=== PATIENT | female | born 1965 | race Caucasian/White ===

== ENCOUNTER → 2018-07-04 02:17 | Outpatient (CLI) | payer BC, SELFPAY ==
--- NOTE | 2018-07-04 08:03 | DI.REPORT_ITS ---
SYMPTOM/DIAGNOSIS: RT KNEE PAIN,M25.561 RIGHT KNEE: Three views. No bone or joint abnormality is identified. The soft tissues are unremarkable. IMPRESSION: Negative examination.
== END ==
PROVIDERS: PCP Nurse Practitioner; Visit Provider Nurse Practitioner
DX: M25.561 Pain in right knee (principal)
CPT/HCPCS: 73562

== ENCOUNTER 2018-07-24 00:35 | Outpatient (CLI) | payer BC, SELFPAY ==
--- NOTE | 2018-07-24 13:30 | DI.US_ITS ---
SYMPTOMS/DIAGNOSIS: LOWER ABDOMINAL PAIN, R10.30, UTERINE FIBROIDS, D25.9 PELVIC ULTRASOUND: A transabdominal and transvaginal examination was carried out. The uterus measures 11.1 cm in length, 6.5 cm in height and 7.0 cm in width with an endometrial stripe thickness of 3.6 mm. An IUD is demonstrated in the endometrial cavity. There is a mid body anterior uterine fibroid measuring 1.6 x 1.3 x 1.6 cm and a posterior proximal uterine fibroid measuring 2.4 x 2.2 x 2.1 cm. The right ovary measures 1.8 x 1.5 x 2.1 cm, the left ovary 2.2 x 1.5 x 1.1 cm. There is no evidence of free pelvic fluid. There is no evidence of hydronephrosis. SUMMARY: An IUD is noted in good position. Two uterine fibroids are demonstrated. The examination is otherwise unremarkable.
== END 2018-07-24 00:55 ==
PROVIDERS: PCP Nurse Practitioner; Visit Provider Nurse Practitioner
DX: R10.31 Right lower quadrant pain (principal); D25.9 Leiomyoma of uterus, unspecified; Z97.5 Presence of (intrauterine) contraceptive device
CPT/HCPCS: 76830; 76856

== ENCOUNTER 2018-10-16 00:14 | Outpatient (CLI) | payer BC, SELFPAY ==
--- NOTE | 2018-10-16 07:50 | DI.MAMMO_ITS ---
SYMPTOMS/DIAGNOSIS: SCREENING, PREVENTATIVE HEALTH CARE MAMMOGRAMS: Mammograms were interpreted according to the usual protocol including computer analysis with CAD system, tomosynthesis and C view imaging. Comparison is with the prior examinations. No suspicious masses or microcalcifications are seen. The well-circumscribed 3-4 cm mass in the upper outer quadrant of the right breast appears stable. IMPRESSION: No definite evidence for malignancy. Yearly mammography is recommended. Category 2, breast density B. MQSA ASSESSMENT OF FINDINGS: Negative with benign findings. Category 2. Patient will receive a letter notifying them of these results. BI-RADS category B. There are scattered areas of fibroglandular density.
== END 2018-10-16 00:34 ==
PROVIDERS: PCP Nurse Practitioner; Visit Provider Nurse Practitioner
DX: Z00.00 Encounter for general adult medical examination without abnormal findings (principal); Z12.31 Encounter for screening mammogram for malignant neoplasm of breast
CPT/HCPCS: 77063; 77067

== ENCOUNTER 2019-07-20 14:15 | Outpatient (REF) | payer BC, SELFPAY ==
--- NOTE | 2019-07-20 13:30 | PAPFT_PTH ---
PATIENT: Zhane Palacio LOC: NCN #:[id number] AGE/SX: 53/F ROOM: RE07/20/[address]: Racquel Galvan : 1965 BED: DIS: 07/20/2019 SPEC #: [id number] RECD: 07/20/19 18:31 STATUS: YUKI BALLARD #: [id number] SATISH: 07/20/19 13:[address]: Racquel Galvan DEPT: [facility] Cytology RECD BY: Rasheeda Lopez Tissues: 1 - CX/ENDOCX FOR PAP SMEARS Procedures: PAP THIN PREP/UVM Screening HPV DNA PROBE Comments: [id number]
[2019-07-20 20:03] LABS: ALT 42 U/L (14-59); AST 32 U/L (15-37); Albumin 3.6 g/dL (3.4-5.0); Alkaline Phosphatase 130 U/L (46-116); Anion Gap 12.4 mmol/L (3-11); BUN 6 mg/dL (7-18); Bilirubin, Total 0.5 mg/dL (0.2-1.0); CO2 25.6 mmol/L (21.0-32.0); CREATININE 0.88 mg/dL (0.55-1.02); Calculated LDL 83 mg/dL; Chloride 99 mmol/L (98-107); Cholesterol 178 mg/dL (50-200); Glucose 110 mg/dL (70-100); HDL Cholesterol 83 mg/dL (40-60); Potassium 3.6 mmol/L (3.5-5.1); Sodium 137 mmol/L (136-145); TSH (W/Ref FT4) 2.87 uIU/mL (0.36-3.74); Total Protein 7.3 g/dL (6.4-8.2); Triglyceride 61 mg/dL (30-150)
== END 2019-07-20 14:35 ==
LOC: NCHCN 14:15
PROVIDERS: PCP Nurse Practitioner; Visit Provider Nurse Practitioner
DX: Z00.00 Encounter for general adult medical examination without abnormal findings (principal); R63.5 Abnormal weight gain; Z12.4 Encounter for screening for malignant neoplasm of cervix; Z11.51 Encounter for screening for human papillomavirus (HPV)
CPT/HCPCS: 80053; 80061; 88142; 84443; 87624

== ENCOUNTER 2019-11-23 00:46 | Outpatient (CLI) | payer BC, SELFPAY ==
--- NOTE | 2019-11-23 09:01 | DI.MAMMO_ITS ---
EXAM: MAMMO SCREENING CLINICAL HISTORY: SCREENING, Z12.39 TECHNIQUE: Mammograms were interpreted according to the usual protocol including computer analysis w [employer] CAD system, tomosynthesis and C-view imaging. FINDINGS: The breasts are of moderate density with fairly symmetrical distribution of fibroglandular tissue. 3 -4 cm in diameter right upper outer quadrant breast mass, predominantly well circumscribed, is stable from multiple prior examinations including January 2012. No new mass or clumped microcalcification id entified in either breast. IMPRESSION: No specific evidence of malignancy at this time. Routine screening examinations are suggested at year ly intervals to follow the stable right breast mass. Category 2. Breast density, category B. BI-RADS Cat 2 - Benign Findings. Breast Density - Category B - Scattered areas of fibroglandular density.
== END 2019-11-23 01:06 ==
PROVIDERS: PCP Nurse Practitioner; Visit Provider Nurse Practitioner
DX: Z12.31 Encounter for screening mammogram for malignant neoplasm of breast (principal); N63.11 Unspecified lump in the right breast, upper outer quadrant
CPT/HCPCS: 77063; 77067

== ENCOUNTER 2020-03-16 09:01 | Outpatient (CLI) | payer BC, SELFPAY ==
--- NOTE | 2020-03-16 13:00 | DI.US_ITS ---
EXAM: US PELVIS TRANSVAGINAL CLINICAL HISTORY: Postmenopausal bleeding,N95.0 TECHNIQUE: Ultrasound performed using standard protocol. COMPARISON: US US PELVIS TRANSVAGINAL from 07/24/2018 FINDINGS: Pelvic ultrasound was performed transabdominally and transvaginally. Please see the accompanying data sheet for measurements of pelvic structures. The examination is technically limited. Uterus appears to contain multiple fibroids, the largest 5-6 cm diameter. Endometrial stripe is 4-5 m illimeters in thickness and appears homogeneous. No free fluid identified in the cul-de-sac. Limited visualization of the ovaries, no specific ovarian abnormality seen. Limited scanning of the kidneys is unremarkable. IMPRESSION: Limited scan, apparent multiple uterine fibroids, unremarkable appearance of the endometrial stripe. DATA REPOSITORY:
== END 2020-03-16 09:21 ==
PROVIDERS: PCP Nurse Practitioner; Visit Provider Obstetrics & Gynecology
DX: N95.0 Postmenopausal bleeding (principal); D25.9 Leiomyoma of uterus, unspecified
CPT/HCPCS: 76830; 76856

== ENCOUNTER 2020-06-25 10:07 | Emergency (ER) | payer BC, SELFPAY ==
[2020-06-25 10:11] VITALS: BP 144/79; PULSE 88; RESP 18; TEMP 36.6; O2SAT 99
--- NOTE | 2020-06-25 10:29 | ED.GENADUL_ITS ---
Discharge Plan Disposition Patient Disposition: HOME Condition: Stable Discharge Details Chief Complaint: Cellulitis Clinical Impression: Puncture wound Primary Care Provider: Racquel Galvan ED Provider: Maya Greer Home Meds and New Rx's Prescriptions: New cephalexin [Keflex] 500 mg capsule 500 mg PO QID 7 Days Qty: 28 RF: 0 mupirocin 2 % ointment 1 applic TP BID Qty: 15 RF: 0 Continued alprazolam [Xanax] 0.5 MG tablet 0.5 mg PO DAILY RF: 0 albuterol sulfate [ProAir HFA] 8.5 GM HFA aerosol inhaler 2 puff Inhalation Q6H PRN RF: 0 Flovent HFA 12 GM HFA aerosol inhaler 220 mcg Inhalation BID RF: 0 Discharge Instructions Instructions: Puncture Wound (ED) Additional Instructions: Keep wound clean and dry. Cover wound with bandage if risk of contamination. Otherwise you can keep the wound open to air if resting at home to allow edges to dry and heal. Use the topical antibiotic ointment as directed. Take the oral antibiotics until finished. Follow-up with your primary care doctor in 1 week. Return to the emergency department with any worsening or new concerning symptoms as fever, increased pain, redness or swelling. Discharge Data Discharge Physician: Maya Greer Medical Decision Making 54-year-old female presents with right thumb pain, edema and erythema since awakening this morning status post puncture wound to her right thumb with a screw 1 week ago. She denies any known foreign body and is declining x-ray. Suspect secondary bacterial infection as she has kept the wound open to the air. Presentation consistent with a localized cellulitis. No evidence of abscess. No concern for tenosynovitis at this time. We will give a prescription for mupirocin and Keflex. She is advised on the importance of proper wound care and covering of risk of contamination. Advised to follow up with the primary care doctor for re-evaluation. Usual and customary return precautions given prior to discharge. Medical Records Medical records reviewed: Yes I reviewed the patient's medical records. HPI General Mode of arrival: ambulatory . Date/Time Provider Initiated Documentation: 06/25/20 10:10 . Limitations to Documentation: no limitations . Information obtained by: patient . HPI Narrative: Patient is a 54-year-old female who presents to the ED with a complaint of right thumb redness, pain and swelling since this morning. Patient states she punctured her right thumb with the sharp end of the nail 1 week ago when grabbing a piece of scrap wood. She states the area became painful and earlier this week was able to express some pus drainage but states it had been healing and doing well since then. She has been keeping the wound open to air and not covering it. She is left-handed. She states she awoke this morning and noticed that her right thumb is much more swollen, painful and red. She denies any new injury. She is unsure of her tetanus status. She denies any foreign body within the wound. She states she was not wearing any gloves and her thumb was better when she punctured it. Related Data Home Medications Medication Instructions Recorded Confirmed Flovent HFA 220 mcg INHALATION BID inhaler 08/13/17 06/25/20 albuterol sulfate [ProAir HFA] 2 puff INHALATION Q6H PRN inhaler 08/13/17 06/25/20 alprazolam [Xanax] 0.5 mg PO DAILY 08/13/17 06/25/20 cephalexin [Keflex] 500 mg PO QID 7 Days #28 cap 06/25/20 mupirocin 1 applic TP BID #15 gm 06/25/20 Previous Rx's Medication Instructions Recorded cephalexin [Keflex] 500 mg PO QID 7 Days #28 cap 06/25/20 mupirocin 1 applic TP BID #15 gm 06/25/20 Allergies Allergy/AdvReac Type Severity Reaction Status Date / Time trazodone Allergy Severe Unverified 06/25/20 10:19 erythromycin base AdvReac Severe stomache Unverified 06/25/20 10:19 [Erythromycin Base] pain/nausea diphenhydramine HCl AdvReac Intermediate Jittery Unverified 06/25/20 10:19 [From Tylenol PM] General Stated Complaint: Cellulitis KAMILA: 4 Review of Systems All systems reviewed & are unremarkable except as noted in HPI and below Constitutional Constitutional: Reports as per HPI, Denies chills and Denies fever(s) Eyes Eyes: Denies blurry vision ENT Ears, Nose, Mouth, and Throat: Denies dizziness, Denies sore throat and Denies throat swelling Cardiovascular Cardiovascular: Denies chest pain and Denies dyspnea Respiratory Respiratory: Denies cough and Denies dyspnea Gastrointestinal Gastrointestinal: Denies abdominal pain, Denies diarrhea and Denies vomiting Genitourinary Genitourinary: Denies hematuria and Denies dysuria Musculoskeletal Musculoskeletal: Denies back pain and Denies numbness Integumentary/Breasts Skin/Breast: Denies lesions and Denies rash Neurologic Neurologic: Denies dizziness, Denies localized weakness and Denies numbness Allergic/Immunologic Allergic/Immunologic: Denies throat swelling PFSH Medical History Anxiety (Chronic) Candidal intertrigo (Acute) Chronic rhinitis (Acute) Insomnia (Acute) Obesity (Chronic) Smoker (Acute) Surgical History (Updated 08/20/18 @ 14:34 by Bosideng MI) Biopsy of breast section X 2 Ligation of fallopian tube Social History Smoking/Tobacco Use Status: Current every day Tobacco Type: cigarettes Alcohol Intake: current Alcohol Intake frequency: 0-2 drinks per day Drug use: Never Do you feel safe at home: Yes Do you feel safe in your relationship?: Yes Exam Const General: cooperative, healthy appearing and no acute distress HENMT Head: normal to inspection Mouth: oral mucosae normal Eyes General: appearance normal, both eyes and all related structures Neck Neck: normal visual inspection Resp Effort & Inspection: normal respiratory effort and able to speak in complete sentences Cardio Rate: regular rate Skin General skin exam: no rashes or lesions noted Neuro General: patient alert, patient awake and patient oriented x3 Motor: muscle tone normal throughout Extrem General: capillary refill normal Hand/finger images: 1. 2 x 2 millimeter puncture wound noted on volar aspect of right thumb pad. There is moderate surrounding tenderness and edema of the right thumb extending to the proximal aspect with minimal erythema. There is limited range of motion due to the edema. There is no red streaking. Psych Appearance: grossly normal Affect: normal affect Course Vital Signs Vital signs: Vital Signs Temperature 97.9 F 06/25/20 10:11 Pulse 88 06/25/20 10:11 Respiratory Rate 18 06/25/20 10:11 Blood Pressure 144/79 H 06/25/20 10:11 Pulse Oximetry 99 06/25/20 10:11 Temperature 97.9 F 06/25/20 10:11 Temperature Source Temporal Artery Scan 06/25/20 10:11 Pulse 88 06/25/20 10:11 Respiratory Rate 18 06/25/20 10:11 Respiratory Effort Non-Labored 06/25/20 10:16 Blood Pressure 144/79 H 06/25/20 10:11 Blood Pressure Position Sitting 06/25/20 10:11 Pulse Oximetry 99 06/25/20 10:11 Oxygen Delivery Method Room Air 06/25/20 10:11 Oxygen Flow Rate 0 06/25/20 10:11 Pain Level 8 06/25/20 10:11
== END 2020-06-25 10:43 | disposition home or self-care (01) ==
PROVIDERS: Emergency Provider Physician Assistant; PCP Nurse Practitioner
DX: S61.031A Puncture wound without foreign body of right thumb without damage to nail, initial encounter (principal); L03.011 Cellulitis of right finger; W26.8XXA Contact with other sharp object(s), not elsewhere classified, initial encounter
CPT/HCPCS: 90471; 99284

== ENCOUNTER 2020-07-27 12:13 | Outpatient (REF) | payer BC, SELFPAY ==
[2020-07-27 20:07] LABS: ALT 63 U/L (14-59); AST 42 U/L (15-37); Albumin 3.7 g/dL (3.4-5.0); Alkaline Phosphatase 128 U/L (46-116); Anion Gap 12.8 mmol/L (3-11); BUN 9 mg/dL (7-18); Bilirubin, Total 0.6 mg/dL (0.2-1.0); CO2 24.2 mmol/L (21.0-32.0); CREATININE 0.76 mg/dL (0.55-1.02); Calcium 8.9 mg/dL (8.5-10.1); Calculated LDL 103 mg/dL (<100); Chloride 99 mmol/L (98-107); Cholesterol 239 mg/dL (<200); Glucose 83 mg/dL (74-106); HDL Cholesterol 121 mg/dL (40-60); Potassium 4.2 mmol/L (3.5-5.1); Sodium 136 mmol/L (136-145); Total Protein 7.4 g/dL (6.4-8.2); Triglyceride 77 mg/dL (<150)
== END 2020-07-27 12:33 ==
LOC: NCHCN 12:13
PROVIDERS: PCP Nurse Practitioner; Visit Provider Nurse Practitioner
DX: Z00.00 Encounter for general adult medical examination without abnormal findings (principal); Z13.220 Encounter for screening for lipoid disorders; Z13.228 Encounter for screening for other metabolic disorders
CPT/HCPCS: 80053; 80061

== ENCOUNTER 2020-08-03 14:43 | Outpatient (REF) | payer BC, SELFPAY ==
--- NOTE | 2020-08-03 14:30 | ENDOMET_PTH ---
PATIENT: Zhane Palacio LOC: N U#:[id number] AGE/SX: 55/F ROOM: RE08/03/[address]: Azael Shah MD : 1965 BED: DIS: 08/03/2020 SPEC #: [id number] RECD: 08/03/20 17:25 STATUS: YUKI REQ #: [id number] SATISH: 08/03/20 14:[address]: Azael Shah DEPT: Surgical Specimen RECD BY: Rasheeda Lopez ENTERED: 08/03/20 17:26 SP TYPE: Endomet OTHR DR: Racquel Galvan Tissues: 1 - ENDOMETRIUM BX/MITZYETTE Procedures: GROSS AND MICRO LEVEL 4 Comments: [id number]
== END 2020-08-03 15:03 ==
LOC: LBN 14:43
PROVIDERS: PCP Nurse Practitioner; Visit Provider Obstetrics & Gynecology
DX: N85.8 Other specified noninflammatory disorders of uterus (principal); D25.9 Leiomyoma of uterus, unspecified
CPT/HCPCS: 88305

== ENCOUNTER 2020-08-04 02:50 | Outpatient (CLI) | payer BC, SELFPAY ==
--- NOTE | 2020-08-04 | DI.CT_ITS ---
EXAM: CT SINUS WO CLINICAL HISTORY: CHRONIC RHINITIS,J31.0. Evaluate for sinusitis. TECHNIQUE: Imaging Protocol: Axial computed tomography images with coronal and sagittal reformatted images were created and reviewed. COMPARISON: No exams were available for comparison FINDINGS: AXIAL IMAGES: Frontal sinuses: Normally aerated. Ethmoid air cells: Normally aerated. Maxillary sinuses: Left minimal mucous retention at the floor. Right normally aerated. Sphenoid sinus: Normally aerated. Ostiomeatal complexes: Patent. Osseous nasal septum: Deviated toward the right.. Visualized regional soft tissues: No acute findings. Orbits: Unremarkable. Bones: Unremarkable. Mastoid Air Cells: Normally aerated. IMPRESSION: Minimal mucous retention at the floor of the right maxillary sinus.. RADIATION DOSE DELIVERED: 112.46mGy.cm Total DLP DATA REPOSITORY: All CT scans at this facility are submitted to the National Radiology Data Registry (NRDR) Dose Index Registry (DIR) with the [employer] ([employer]). RADIATION OPTIMIZATION: All CT scans at this facility use at least one of these dose optimization te chniques: automated exposure control; mA and/or kV adjustment per patient size (includes targeted exa ms where dose is matched to clinical indication); or iterative reconstruction.
== END 2020-08-04 03:10 ==
PROVIDERS: PCP Nurse Practitioner; Visit Provider Nurse Practitioner
DX: J31.0 Chronic rhinitis (principal); J34.1 Cyst and mucocele of nose and nasal sinus
CPT/HCPCS: 70486

== ENCOUNTER 2020-09-27 21:36 | Outpatient (REF) | payer BC, SELFPAY ==
[2020-10-01 07:12] LABS: Patient Race White; SARS-CoV-2 RNA Undetected (Undetected); SARS-CoV-2 Specimen Source Nasal
== END 2020-09-27 21:56 ==
LOC: NCHCN 21:36
PROVIDERS: PCP Nurse Practitioner; Visit Provider Nurse Practitioner Family
DX: Z20.828 Contact with and (suspected) exposure to other viral communicable diseases (principal)
CPT/HCPCS: U0003

== ENCOUNTER 2020-11-25 02:53 | Outpatient (CLI) | payer BC, SELFPAY ==
--- NOTE | 2020-11-25 11:15 | DI.MAMMO_ITS ---
EXAM: MG MAMMO SCREENING CLINICAL HISTORY: SCREENING, Z12.39 TECHNIQUE: Bilateral full field digital CC and MLO mammographic images were obtained with 3D tomosyn thesis and utilizing computer aided detection (CAD). COMPARISON: Available for comparison. FINDINGS: Masses/Architectural Distortion: There are several stable nodules in both breasts. The largest is in the upper outer quadrant of the right breast. No suspicious masses are seen. No areas of cloud infrastructure architect ural distortion are present Microcalcifications: No suspicious pleomorphic-type are seen. Skin Thickening/Nipple Retraction: None. IMPRESSION: 1. No significant interval change with no specific features of malignancy noted. 2. Unless there is more urgent need, screening mammography is recommended, as per [employer] guidelines. BI-RADS Category 2 - Benign Findings Breast Density - Category B - Scattered areas of fibroglandular density Breast density category C or D implies that the patient has dense breast tissue. Dense breast tissue is very common and is not abnormal but dense breast tissue can make it harder to find cancer on a ma mmogram. Also, dense breast tissue may increase their breast cancer risk. This information about the result of the mammogram report was provided to the patient to raise their awareness. Use this report when you speak with the patient about their risks for breast cancer, which includes their family hist ory. At that time, you may recommend for more screening tests (Ultrasound or MRI) as they might be us eful based on their risk. A negative radiographic report should not delay biopsy if a dominant or clinically suspicious mass is present. Up to ten percent of cancers are not identified on mammography. A negative report may reinforce clinical impression. Adenosis and dense breasts may obscure an underlying neoplasm. False positive reports average 6 to 10%. Patient will receive a letter notifying them of these results.
== END 2020-11-25 03:13 ==
PROVIDERS: PCP Nurse Practitioner; Visit Provider Nurse Practitioner
DX: Z12.31 Encounter for screening mammogram for malignant neoplasm of breast (principal); N63.11 Unspecified lump in the right breast, upper outer quadrant; R92.8 Other abnormal and inconclusive findings on diagnostic imaging of breast
CPT/HCPCS: 77063; 77067

== ENCOUNTER 2021-05-26 13:43 | Outpatient (REF) | payer MEDICAID, SELFPAY ==
[2021-05-27 14:16] LABS: COVID-19 RT-PCR UVMMC Result Negative (Negative)
== END 2021-05-26 13:44 | disposition home or self-care (01) ==
LOC: LBN 13:43
PROVIDERS: PCP Nurse Practitioner; Visit Provider Physician Assistant Medical
DX: Z20.822 Contact with and (suspected) exposure to COVID-19 (principal); J06.9 Acute upper respiratory infection, unspecified
CPT/HCPCS: U0003

== ENCOUNTER 2021-05-27 13:45 | Emergency (ER) | payer MEDICAID, SELFPAY ==
[2021-05-27 14:01] VITALS: BP 134/69; PULSE 91; RESP 20; TEMP 36.8; O2SAT 98
--- NOTE | 2021-05-27 14:15 | DI.RAD_ITS ---
Exam(s) XR PORTABLE CHEST AP EXAM: XR PORTABLE CHEST AP CLINICAL HISTORY: cough TECHNIQUE: 2D digital imaging was performed. COMPARISON: No exams were available for comparison FINDINGS: MEDIASTINUM: Normal. HEART: Normal. PULMONARY VASCULATURE: Normal. LUNGS: Clear. PLEURAL SPACE: No pleural effusion or pneumothorax. BONE:Within normal limits for the patient's age. OTHER FINDINGS:Normal. IMPRESSION: No acute pulmonary findings. DATA REPOSITORY: RADIATION DOSE DELIVERED:
--- NOTE | 2021-05-27 14:49 | DI.VRAD_ITS ---
PROCEDURE INFORMATION: Exam: XR Chest Exam date and time: 05/27/2021 2:17 PM Age: 55 years old Clinical indication: Shortness of breath TECHNIQUE: Imaging protocol: XR of the chest. Views: 1 view. Total images: 1 COMPARISON: No relevant prior studies available. FINDINGS: Lungs: There are patchy peripheral airspace opacities. Pleural spaces: Unremarkable. No pleural effusion. No pneumothorax. Heart/Mediastinum: Unremarkable. No cardiomegaly. Bones/joints: Unremarkable. IMPRESSION: Study is positive for airspace disease. Although nonspecific, findings may represent pneumonia including viral pneumonia. Dictated and Authenticated by: Donovan Harris MD. Ordering:GUNNAR Moody MD
--- NOTE | 2021-05-27 14:58 | W.ED.GENAD ---
Discharge Plan Disposition Patient Disposition: HOME Condition: Stable Discharge Details Clinical Impression: Bronchitis Primary Care Provider: Racquel Galvan ED Provider: Fransisco Rivera Home Meds and New Rx's Prescriptions: New prednisone 20 mg tablet 60 mg PO DAILY 4 Days Qty: 12 RF: 0 Continued cholecalciferol (vitamin D3) 50 mcg (2,000 unit) capsule 50 mcg PO DAILY RF: 0 Multiple Vitamin, Womens Tablet 1 tab PO DAILY RF: 0 alprazolam [Xanax] 0.5 MG tablet 0.5 mg PO DAILY RF: 0 albuterol sulfate [ProAir HFA] 8.5 GM HFA aerosol inhaler 2 puff Inhalation Q6H PRN RF: 0 Flovent HFA 12 GM HFA aerosol inhaler 220 mcg Inhalation BID RF: 0 hydrochlorothiazide 12.5 mg tablet 12.5 mg PO DAILY RF: 0 Discharge Instructions Instructions: Acute Bronchitis (ED) Additional Instructions: No clear indication for antibiotics today. Please quit smoking. Continue taking inhalers as directed and add on prednisone. Your symptoms very well could be consistent with Covid, I recommend continuing to quarantine until your test results have returned negative, hopefully you will get the results by Saturday. [id number] medications for symptomatic control. Please watch for new or worsening symptoms and return to the ER for any concerns. Lastly, I recommend reaching out your primary care provider on Saturday to discuss your ongoing symptoms to potential need for outpatient reevaluation Discharge Data Discharge Date/Time-TO BE ENTERED AT DEPARTURE: 05/27/21 15:32 Medical Decision Making 55-year-old female, presents complaining of a head cold that began on , now with chest congestion and cough. Seen at [facility] yesterday, Covid test pending. Clinically she appears well, nontoxic, afebrile, no evidence of tachycardia or hypoxia. She does have an occasional expiratory scattered wheeze. Given her recent Covid test, will not repeat test now as she will likely have the results by Saturday. Will obtain chest x-ray to rule out pneumonia although no suspicion given her presentation. Likely viral in nature. Will give a single DuoNeb now and initiate burst dose steroid therapy. Chest x-ray read by radiology as positive airspace disease, nonspecific, may represent pneumonia-viral. Clinically this very well could be consistent with Covid as well. DuoNeb given, patient reports moderate relief. Extremely rare expiratory wheeze, mostly clear. 60 mg p.o. prednisone given. Recommend treating her symptoms with vojv-hfk-pqpeddc medications, we discussed smoking cessation, and I will provide a prescription for prednisone. We discussed the importance of continuing to quarantine until her Covid test returns negative. Standard discharge and return precautions given. At this time no clear indication for antibiotics. This documentation was generated using [email or web address] dictation system, please disregard any oddities of phrase or misspellings. Medical Records Medical records reviewed: Yes I reviewed the patient's medical records. Imaging Data Radiologic Study: Attestation: I personally reviewed and interpreted this imaging study as follows: Imaging: X-Ray Radiologist's impression: Exam: XR Chest Exam date and time: 05/27/2021 2:17 PM Age: 55 years old Clinical indication: Shortness of breath TECHNIQUE: Imaging protocol: XR of the chest. Views: 1 view. Total images: 1 COMPARISON: No relevant prior studies available. FINDINGS: Lungs: There are patchy peripheral airspace opacities. Pleural spaces: Unremarkable. No pleural effusion. No pneumothorax. Heart/Mediastinum: Unremarkable. No cardiomegaly. Bones/joints: Unremarkable. IMPRESSION: Study is positive for airspace disease. Although nonspecific, findings may represent pneumonia including viral pneumonia. HPI General Mode of arrival: ambulatory. Date/Time Provider Initiated Documentation: 05/27/21 13:48. Limitations to Documentation: no limitations. Information obtained by: patient. HPI Narrative: This is a 55-year-old female, current pack-a-day smoker, past medical history of anxiety, obesity, denies lung disease diagnosis but does use inhalers daily, presenting for cough and congestion. Patient states initially her symptoms began on as what she describes as a head cold, ears feel congested, or popping, tickle in the back of her throat, sinus congestion but now over the past couple of days had developed wheezing, cough, mild clear phlegm. She has used her inhaler twice a day and 3 times yesterday. Patient has tried icxf-nvc-kkuahlr cough medication as well. Seen at [facility] yesterday, Covid test is pending, she is not vaccinated. She denies current headache, fever, neck pain, chest pain, abdominal pain, nausea, vomiting, pain or swelling in her legs. Related Data Home Medications Medication Instructions Recorded Confirmed Flovent HFA 220 mcg INHALATION BID inhaler 08/13/17 05/27/21 albuterol sulfate [ProAir HFA] 2 puff INHALATION Q6H PRN inhaler 08/13/17 05/27/21 alprazolam [Xanax] 0.5 mg PO DAILY 08/13/17 05/27/21 cholecalciferol (vitamin D3) 50 50 mcg PO DAILY 08/03/20 05/27/21 mcg (2,000 unit) capsule ekoshvlubqjs-Nv-ycot-minerals 1 tab PO DAILY 08/03/20 05/27/21 hydrochlorothiazide 12.5 mg PO DAILY 05/27/21 05/27/21 prednisone 60 mg PO DAILY 4 Days #12 tab 05/27/21 Previous Rx's Medication Instructions Recorded prednisone 60 mg PO DAILY 4 Days #12 tab 05/27/21 Allergies Allergy/AdvReac Type Severity Reaction Status Date / Time trazodone Allergy Severe Unverified 05/27/21 14:09 erythromycin base AdvReac Severe stomache Unverified 06/25/20 10:19 [Erythromycin Base] pain/nausea diphenhydramine HCl AdvReac Intermediate Jittery Unverified 06/25/20 10:19 [From Tylenol PM] General Stated Complaint: RespSymp KAMILA: 3 Review of Systems Constitutional Constitutional: Denies fever(s) and Denies headache(s) ENT Ears, Nose, Mouth, and Throat: Denies headache(s) and Denies neck pain Cardiovascular Cardiovascular: Denies chest pain and Denies dyspnea Respiratory Respiratory: Reports cough, Denies dyspnea and Reports wheezing Gastrointestinal Gastrointestinal: Denies abdominal pain, Denies nausea and Denies vomiting Musculoskeletal Musculoskeletal: Denies back pain and Denies neck pain Integumentary/Breasts Skin/Breast: Denies rash Neurologic Neurologic: Denies headache(s) Allergic/Immunologic Allergic/Immunologic: Reports wheezing PFSH Medical History Anxiety Candidal intertrigo Chronic rhinitis Insomnia Obesity Smoker Surgical History Biopsy of breast section X 2 Ligation of fallopian tube Social History Smoking/Tobacco Use Status: Current every day Tobacco Type: cigarettes Smoking risk assessment performed?: Yes Alcohol Intake: current Alcohol Intake frequency: 0-2 drinks per day Drug use: Never Do you feel safe at home: Yes Do you feel safe in your relationship?: Yes Exam Const General: cooperative, healthy appearing, comfortable and no acute distress Orientation: alert and awake [facility] Head: normal to inspection, normocephalic and atraumatic Ears: external ears normal, TM's normal bilaterally and EAC's normal General nose exam: nasal discharge clear Face and sinus: normal facial exam Mouth: moist mucous membranes Throat: posterior oropharynx normal Eyes General: appearance normal, both eyes and all related structures Conjunctivae: conjunctivae normal Neck Neck: normal visual inspection, full ROM, trachea midline and supple Resp Effort & Inspection: normal respiratory effort and able to speak in complete sentences Auscultation: wheezes (Scattered, rare, expiratory) Cardio Rate: regular rate Rhythm: regular rhythm Skin General skin exam: no rashes or lesions noted Neuro General: patient alert, patient awake, moves all extremities and no focal motor deficits Sensory Exam: no sensory deficits noted Psych Appearance: grossly normal Mental Status: mental status grossly normal Course Vital Signs Vital signs: Vital Signs Temperature 36.8 C 05/27/21 14:01 Pulse 91 H 05/27/21 14:01 Respiratory Rate 20 05/27/21 14:01 Blood Pressure 134/69 05/27/21 14:01 Pulse Oximetry 98 05/27/21 14:01 Temperature 36.8 C 05/27/21 14:01 Pulse 91 H 05/27/21 14:01 Respiratory Rate 20 05/27/21 14:01 Respiratory Effort 05/27/21 14:08 Blood Pressure 134/69 05/27/21 14:01 Blood Pressure Position Sitting 05/27/21 14:01 Pulse Oximetry 98 05/27/21 14:01 Oxygen Delivery Method Room Air 05/27/21 14:01 Oxygen Flow Rate 0 05/27/21 14:01 Pain Level 10 05/27/21 14:01
[2021-05-27] MEDS: Albuterol/Ipratropium 3 ML UPD VIAL UPD (15:13)
[2021-05-27] MEDS: predniSONE 20 MG TAB 60 MG PO (15:13)
[2021-05-27 15:35] VITALS: PULSE 90; O2SAT 100
== END 2021-05-27 15:32 | disposition home or self-care (01) ==
PROVIDERS: Emergency Provider Physician Assistant; PCP Nurse Practitioner
DX: J20.8 Acute bronchitis due to other specified organisms (principal); F17.210 Nicotine dependence, cigarettes, uncomplicated
CPT/HCPCS: 94640; 99283; 71045; J7512; J7620

== ENCOUNTER 2021-08-21 10:11 | Outpatient (REF) | payer MEDICAID, SELFPAY ==
[2021-08-21 14:41] LABS: HCT 47.1 % (36.0-46.0); HGB 16.2 g/dL (11.2-15.7); MCH 32.5 pg (27.0-33.0); MCHC 34.4 % (32.0-36.0); MCV 94.6 fL (80-95); MPV 11.1 fL (8.0-11.0); Platelet Count 201 10^3/uL (130-400); RBC 4.98 10^6/uL (3.93-5.22); RDW 13.4 % (11.7-14.6); RDW-SD 46.7 fL; WBC 10.79 10^3/uL (4.4-10.8)
[2021-08-21 14:52] LABS: ALT 140 U/L (14-59); AST 105 U/L (15-37); Albumin 3.5 g/dL (3.4-5.0); Alkaline Phosphatase 151 U/L (46-116); Anion Gap 13.1 mmol/L (3-11); BUN 6 mg/dL (7-18); Bilirubin, Total 0.3 mg/dL (0.2-1.0); CO2 25.9 mmol/L (21.0-32.0); CREATININE 0.8 mg/dL (0.55-1.02); Calcium 9.2 mg/dL (8.5-10.1); Calculated LDL 98 mg/dL (<100); Chloride 97 mmol/L (98-107); Cholesterol 229 mg/dL (<200); Glucose 110 mg/dL (74-106); HDL Cholesterol 120 mg/dL (40-60); Potassium 3.7 mmol/L (3.5-5.1); Sodium 136 mmol/L (136-145); TSH (W/Ref FT4) 1.44 uIU/mL (0.36-3.74); Total Protein 7.5 g/dL (6.4-8.2); Triglyceride 57 mg/dL (<150)
== END 2021-08-21 10:12 | disposition home or self-care (01) ==
LOC: NCHCN 10:11
PROVIDERS: PCP Nurse Practitioner; Visit Provider Nurse Practitioner
DX: I10 Essential (primary) hypertension (principal); E78.5 Hyperlipidemia, unspecified; R53.83 Other fatigue
CPT/HCPCS: 80053; 80061; 85027; 84443

== ENCOUNTER 2021-08-25 13:28 | Emergency (ER) | payer MEDICAID, SELFPAY ==
[2021-08-25 13:34] VITALS: BP 174/103; PULSE 86; RESP 22; TEMP 37; O2SAT 99
[2021-08-25 14:00] LABS: Bilirubin Negative (Negative); Blood Trace-lysed (Negative); Clarity Clear (Clear); Glucose Negative (Negative); Ketones 15 mg/dL (Negative); Leukocyte Esterase Negative (Negative); Nitrite Negative (Negative); Specific Gravity <= 1.005 (1.005-1.025); Urobilinogen 0.2 EU/dL (Up TO 0.2); pH 5.5 (5-8)
[2021-08-25] MEDS: Normal Saline 1,000 ML 1000 ML IV ×2 (14:00→17:30)
--- NOTE | 2021-08-25 14:15 | RT.EKG_ITS ---
APPROVED REPORT Exam: Resting ECG Reason for Exam: fatigue Patient Location: E HR:82 bpm ECG Measurements Heart Rate 82 AXIS [place] 147 P 69 QRSd 99 QRS 47 QT 414 T 47 QTc 483 Conclusion Sinus rhythm...normal P axis, V-rate 60- 99
[2021-08-25 14:24] LABS: C & S Indicated? No; Epithelial Cells Rare HPF (Negative); RBC 0-2 HPF (0-2)
--- NOTE | 2021-08-25 14:24 | ED.GENADUL_ITS ---
Discharge Plan Disposition Patient Disposition: HOME Condition: Stable Discharge Details Clinical Impression: Vomiting, Oral thrush, Alcohol intoxication Primary Care Provider: Racquel Galvan ED Provider: Fransisco Rivera Home Meds and New Rx's Prescriptions: New ondansetron HCl [Zofran] 4 mg tablet 4 mg PO Q8H PRNQty: 10 RF: 0 nystatin 100,000 unit/mL suspension 1 ml PO QID 10 Days Qty: 40 RF: 0 Continued alprazolam [Xanax] 0.5 MG tablet 0.5 mg PO DAILY RF: 0 albuterol sulfate [ProAir HFA] 8.5 GM HFA aerosol inhaler 2 puff Inhalation Q6H PRN RF: 0 Flovent HFA 12 GM HFA aerosol inhaler 220 mcg Inhalation BID RF: 0 hydrochlorothiazide 12.5 mg tablet 12.5 mg PO DAILY RF: 0 Discharge Instructions Instructions: Oral Candidiasis (ED), Alcohol Intoxication (ED), Acute Nausea and Vomiting (ED) Additional Instructions: Nystatin and Zofran as directed. As we discussed, please drink responsibly and in moderation. Also please quit smoking. Plenty of fluids to avoid dehydration, I do recommend Gatorade and/or Powerade for electrolyte supplementation. Please watch for new or worsening symptoms and return to the ER for any concerns. Otherwise I would like you to contact your primary care provider on Saturday to discuss your ongoing symptoms, ER visit, need for outpatient reevaluation. Discharge Data Discharge Date/Time-TO BE ENTERED AT DEPARTURE: 08/25/21 19:47 Medical Decision Making <MARIJA Hurtado - Last Filed: 08/26/21 11:04> Patient is a pleasant 56-year-old female, accompanied by family friend, with chief complaint of general malaise. Patient reports that since May she has been under immense amount of stress, has been drinking daily. States that she had 6 years prior to arrival. Reports that she smoked 1.5 packs/day. Described increased social stressors after taking over the care of her 2 grandchildren. States that she has had increase of her general malaise over the past 2 weeks. States that each morning she wakes up and has 1 episode of emesis. Also describes having loose bowel movements in the morning. Had one episode of vomiting and loose stools this AM. She denies any fevers or chills. Past surgical history is pertinent for section and tubal ligation. Past medical history is pertinent for anxiety, insomnia, obesity. On exam, patient appears anxious in. She does not actively suicidal or having thoughts of self-harm. Dry mucous membranes. Lungs are clear. Normal cardiac exam. Abdomen is benign with no tenderness elicited with palpation. No significant edema or fluid wave. No lower extremity edema. 2+ distal pulses. No scleral icterus or jaundice noted. We will proceed to ultrasound of right upper quadrant. This had already been ordered by primary care and is scheduled for September. Plan to repeat lab. Concerned that the patient's transaminitis recently is from for a large amount of alcohol intake. Patient reports that she had 6 beers prior to arrival, she does not appear clinically intoxicated. She is open to alcohol cessation, I will have Preparation H come to evaluate the patient. Concerned that patient may be dehydrated and will begin IV fluids. He Labs reviewed. No leukocytosis.Hemoglobin and hematocrit are elevated, coags are normal. Sodium is fairly low at 130. Potassium slightly low at 3.3. Elevated gap 18. GFR is normal. Patient does have notable transaminitis, AST of 315, ALT of 269, alk phos of 141. T bili is within normal limits. Ammonia is just under normal limits. Troponin within normal limits. Thyroid within normal limits. Patient does have some ketones noted on urinalysis. Patient was evaluated by instructional technology coach. Information for local rehabs were given to the patient on she is discussing the possibility her family friend at bedside. We discussed contacted by radiologist. He advised ultrasound is significant for fatty liver. I did advise that it was limited and were unable to see any midline structures including the pancreas. Have added on a lipase for further evaluation. At the end of my shift, care transition to CARLOS MANUEL Rivera with lipase pending. Hepatitis panel is pending as is COVID-19. Hepatitis panel will not come back today. If lipase is elevated or patient begins having increased pain, would consider CT. <MARIJA Preciado - Last Filed: 08/25/21 19:38> I assumed care of this 56-year-old female from my colleague MARIJA Elizalde, please see her HPI and examination. At time of signout awaiting Covid and lipase, IV hydration. Repeat blood pressure 156/82, trending down nicely. Plan is to provide additional liter of IV fluid and check her BNP as she had an elevated anion gap. Given her initial laboratory values, will give p.o. potassium. Repeat laboratory values reveal a sodium of 136 potassium 3.7 chloride 99, carbon dioxide 26, anion gap now at 11, creatinine 0.8 with a GFR greater than 60. Glucose 105, calcium 9.6, will provide oral calcium supplementation. Patient tolerates p.o. intake without any difficulty. Her lipase is 317. Covid negative. Hepatitis pending Upon reevaluation she is resting comfortably. Denies any additional abdominal discomfort. No vomiting while under my care. Given her normal lipase and her clinical presentation, will not pursue CT imaging of the abdomen and pelvis in an emergent capacity. Patient does report that her tongue is painful and has white spots. Upon clinical examination her exam tongue is consistent with thrush, will treat with nystatin. Patient otherwise feels improvement, has no additional questions or concerns and is comfortable discharge. We discussed smoking cessation, decreasing her alcohol intake, adequate hydration, especially with Gatorade and/or Powerade for electrolytes. She was encouraged to watch for new or worsening symptoms and return immediately to the ER. Standard discharge and return precautions provided. She plans to contact her primary care provider on Saturday to discuss her ER visit and ongoing symptoms. This documentation was generated using [email or web address] system, please disregard any oddities of phrase or misspellings. Medical Records Medical records reviewed: Yes I reviewed the patient's medical records. HPI <MARIJA Hurtado - Last Filed: 08/26/21 11:04> General Mode of arrival: ambulatory . Date/Time Provider Initiated Documentation: 08/25/21 13:37 . Limitations to Documentation: no limitations . Information obtained by: patient, family (friend) and RN notes reviewed . History of Present Illness 56 year old F presents to the emergency department with the chief complaint of general malaise, fatigue, AM vomiting, described as moderate, with intensity rated at 1 (patietn denies any pain). Patient st arted experiencing this week(s) (2) and it has been constant. No relieving factors improve symptom(s), No exacerbating factors reported . Patient notes loss of appetite and nausea/vomiting; denies chest pain, cough, diaphoresis, fever/chills, headaches, rash, shortness of breath and syncope. Patient did receive the following treatments prior to arrival, none Related Data Home Medications Medication Instructions Recorded Confirmed Flovent HFA 220 mcg INHALATION BID inhaler 08/13/17 08/25/21 albuterol sulfate [ProAir HFA] 2 puff INHALATION Q6H PRN inhaler 08/13/17 08/25/21 alprazolam [Xanax] 0.5 mg PO DAILY 08/13/17 08/25/21 hydrochlorothiazide 12.5 mg PO DAILY 05/27/21 08/25/21 nystatin 1 ml PO QID 10 Days #40 ml 08/25/21 ondansetron HCl [Zofran] 4 mg PO Q8H PRN #10 tab 08/25/21 Previous Rx's Medication Instructions Recorded nystatin 1 ml PO QID 10 Days #40 ml 08/25/21 ondansetron HCl [Zofran] 4 mg PO Q8H PRN #10 tab 08/25/21 Allergies Allergy/AdvReac Type Severity Reaction Status Date / Time trazodone Allergy Severe Unverified 05/27/21 14:09 erythromycin base AdvReac Severe stomache Unverified 06/25/20 10:19 [Erythromycin Base] pain/nausea diphenhydramine HCl AdvReac Intermediate Jittery Unverified 06/25/20 10:19 [From Tylenol PM] General Stated Complaint: Nausea/Vomit/Diar KAMILA: 2 Review of Systems <MARIJA Hurtado - Last Filed: 08/26/21 11:04> Constitutional Constitutional: Reports as per HPI, Denies chills, Reports fatigue, Denies fever(s), Denies headache(s), Reports lethargy, Reports malaise, Reports poor appetite and Denies weight loss ENT Ears, Nose, Mouth, and Throat: Denies headache(s) Cardiovascular Cardiovascular: Reports as per HPI, Denies chest pain and Denies dyspnea Respiratory Respiratory: Reports as per HPI, Denies cough and Denies dyspnea Gastrointestinal Gastrointestinal: Reports as per HPI Musculoskeletal Musculoskeletal: Reports as per HPI and Denies back pain Integumentary/Breasts Skin/Breast: Reports as per HPI and Denies rash Neurologic Neurologic: Reports as per HPI and Denies headache(s) Endocrine Endocrine: Reports fatigue PFSH <MARIJA Hurtado - Last Filed: 08/26/21 11:04> Medical History Anxiety Candidal intertrigo Chronic rhinitis Insomnia Obesity Smoker Surgical History Biopsy of breast section X 2 Ligation of fallopian tube Social History Smoking/Tobacco Use Status: Current every day Tobacco Type: cigarettes Years smoked: 34 Smoking risk assessment performed?: Yes Alcohol Intake: current Alcohol Intake frequency: 3 or more drinks per day Drug use: Never Substance use type: does not use Do you feel safe at home: Yes Do you feel safe in your relationship?: Yes Exam <MARIJA Hurtado Last Filed: 08/26/21 11:04> Const General: cooperative, comfortable, no acute distress, well developed, anxious and ill appearing acutely Nutritional Appearance: well nourished and overweight Orientation: alert and awake HENMT Head: normal to inspection Mouth: abnormal tongue (dry and cracked) and mucous membranes dry (dry) Throat: posterior oropharynx normal Eyes General: appearance normal, both eyes and all related structures Resp Effort & Inspection: normal respiratory effort, able to speak in complete sentences and no respiratory distress Auscultation: no rales, no rhonchi and wheezes (scattered wheezing) Cardio Rate: regular rate Rhythm: regular rhythm Heart Sounds: S1 normal and S2 normal GI Inspection: normal to inspection and obesity Palpation: soft, no hepatosplenomegaly, not firm, no guarding, no masses, not rigid and nontender Percussion: normal to percussion Auscultation: normal bowel sounds Back/Spine/Pelvis Back: no CVA tenderness Skin General skin exam: no rashes or lesions noted Trauma: no lacerations or abrasions Neuro General: patient alert and patient awake Cognition: normal cognition Speech: speech normal Gait: normal gait Extrem General: no pedal edema, no calf tenderness and normal gait Psych Appearance: grossly normal and well kempt Mental Status: mental status grossly normal Speech and Movement: speech and movement normal Course <MARIJA Hurtado - Last Filed: 08/26/21 11:04> Vital Signs Vital signs: Vital Signs Temperature 37.0 C 08/25/21 13:34 Pulse 86 08/25/21 13:34 Respiratory Rate 22 08/25/21 13:34 Blood Pressure 174/103 H 08/25/21 13:34 Pulse Oximetry 99 08/25/21 13:34 Temperature 37.0 C 08/25/21 13:34 Temperature Source Temporal Artery Scan 08/25/21 13:34 Pulse 86 08/25/21 13:34 Respiratory Rate 22 08/25/21 13:34 Respiratory Effort Non-Labored 08/25/21 13:37 Blood Pressure 174/103 H 08/25/21 13:34 Blood Pressure Position Sitting 08/25/21 13:34 Pulse Oximetry 99 08/25/21 13:34 Oxygen Delivery Method Room Air 08/25/21 13:34 Oxygen Flow Rate 0 08/25/21 13:34 Pain Level 0 08/25/21 13:34 Lab/Test Results Lab/Test Results: Laboratory Tests Range/Units 08/25/21 13:50 Urine Color (Yellow) Yellow Urine Clarity (Clear) Clear Urine pH (5-8) 5.5 Ur Specific [place] (1.005-1.025) <= 1.005 Urine Protein (Negative) mg/dL Negative Urine Ketones (Negative) mg/dL 15 H Urine Blood (Negative) Trace-lysed H Urine Nitrite (Negative) Negative Urine Bilirubin (Negative) Negative Urine Urobilinogen (Up TO 0.2) EU/dL 0.2 Ur Leukocyte Esterase (Negative) Negative Urine Glucose (Negative) mg/dL Negative Sign Out <MARIJA Hurtado - Last Filed: 08/26/21 11:04> Sign Out Data: Sign Out Comment: Care transition to Fahad Rivera PA-C. Patient here with general malaise. Morning vomiting and diarrhea. Only had one episode of each today. Hemodynamically stable. Large amount of alcohol daily. Alcohol currently 360. Notable transaminitis which is significantly increased recently. Lipase is pending. Ultrasound was obtained, the view of the pancreas and midline structures are very limited. May need CT based on my result. Hepatitis panel pending. Covid negative. Disposition pending. Last updated by Amanda Dietrich PA at 08/25/21 16:13 PAWSS <MARIJA Hurtado - Last Filed: 08/26/21 11:04> Have you Been Recently Intoxicated or Drunk Within the Last 30 days?: Yes Have you Ever Experienced Previous Episodes of Alcohol Withdrawal?: No Have you ever Experienced Withdrawal Seizures?: No Have you ever Experienced Delirium Tremens(DT)s?: No Have you ever undergone Alcohol Rehabilitation Treatment (i.e, inpt ot outpatient treatment programs)?: No Have you ever Experienced Blackouts?: No Have you ever Combined Alcohol with other Downers within the last 90 days?: No Have you ever Combined Alcohol with any other Substance of Abuse during the last 90 days?: No Positive Blood Alcohol level on Presentation? [PCS.BAL]: Yes Evidence of Increased Autonomic Activity (i.e. HR>120, tremor, sweating, agitation, nausea)?: Yes Result: 3
[2021-08-25 14:40] LABS: Abs Immature Grans 0.03 10^3/uL (0.0-0.06); Absolute Basophil Count 0.09 10^3/uL (0.0-0.2); Absolute Eosinophil Count 0.12 10^3/uL (0.0-0.7); Absolute Lymphocyte Count 1.36 10^3/uL (1.2-3.4); Absolute Monocyte Count 0.64 10^3/uL (0.1-0.8); Absolute Neutrophil Count 6.37 10^3/uL (1.2-6.7); Eosinophils % 1.4; HCT 49.1 % (36.0-46.0); HGB 17.2 g/dL (11.2-15.7); Immature Grans % 0.3; Lymphocytes % 15.8; MCH 33.1 pg (27.0-33.0); MCV 94.6 fL (80-95); MPV 10.4 fL (8.0-11.0); Monocytes % 7.4; Neutrophils % 74.1; Nucleated RBC 0 %; Platelet Count 200 10^3/uL (130-400); RBC 5.19 10^6/uL (3.93-5.22); RDW 12.9 % (11.7-14.6); WBC 8.61 10^3/uL (4.4-10.8)
[2021-08-25 14:47] LABS: Ammonia 10 umol/L (11-32)
[2021-08-25 14:56] LABS: PTT Activated 23.4 sec (21.0-27.5); Prothrombin Time 10.2 sec (9.3-11.0)
[2021-08-25 15:03] LABS: Source Nasal/Nares
[2021-08-25 15:04] LABS: ALT 269 U/L (14-59); AST 315 U/L (15-37); Albumin 4.3 g/dL (3.4-5.0); Alkaline Phosphatase 171 U/L (46-116); Anion Gap 16.9 mmol/L (3-11); BUN 7 mg/dL (7-18); Bilirubin, Total 0.4 mg/dL (0.2-1.0); CO2 27.1 mmol/L (21.0-32.0); CREATININE 0.9 mg/dL (0.55-1.02); Calcium 8.8 mg/dL (8.5-10.1); Chloride 86 mmol/L (98-107); Glucose 96 mg/dL (74-106); Magnesium 2.4 mg/dL (1.8-2.4); Potassium 3.3 mmol/L (3.5-5.1); Sodium 130 mmol/L (136-145); TSH (W/Ref FT4) 2.74 uIU/mL (0.36-3.74); Total Protein 9.3 g/dL (6.4-8.2); Troponin I < 0.05 ng/mL (<0.06)
--- NOTE | 2021-08-25 15:23 | DI.US_ITS ---
Exam(s) US ABDOMEN LIMITED EXAM: US ABDOMEN LIMITED CLINICAL HISTORY: transaminitis TECHNIQUE: Ultrasound abdomen performed using standard protocol. COMPARISON: No exams were available for comparison FINDINGS: LIVER: There is diffuse increased echogenicity of the liver consistent with fatty infiltration. Hepa topedal flow in the Portal Vein. GALLBLADDER: No evidence of cholelithiasis. No evidence of wall thickening. No pericholecystic fluid identified. BILIARY SYSTEM: Common bile duct measures < 7 mm. No intrahepatic biliary ductal dilation. REYES'S SIGN: Negative. Right kidney: The right kidney is unremarkable. No evidence of renal calculi. No evidence of hydrone phrosis. No renal mass or cyst identified. IMPRESSION: 1. Hepatic steatosis. 2. Results of this exam have been verbally communicated with provider. DATA REPOSITORY:
[2021-08-25 15:56] LABS: COVID-19 PCR Negative (Negative)
[2021-08-25 16:24] LABS: Bacteria Negative HPF (Negative); Crystals Negative HPF (Negative); Mucus Negative (Negative); WBC Negative HPF (0-5)
[2021-08-25] MEDS: Potassium Chloride 20 MEQ TABCR 40 MEQ PO (16:45)
[2021-08-25 16:56] LABS: Lipase 317 U/L (73-393)
[2021-08-25 17:04] VITALS: BP 156/82; PULSE 90; RESP 16; TEMP 36.3; O2SAT 97
[2021-08-25 18:39] LABS: BUN 5 mg/dL (7-18); CREATININE 0.8 mg/dL (0.55-1.02); Calcium 7.6 mg/dL (8.5-10.1); Chloride 99 mmol/L (98-107); Glucose 105 mg/dL (74-106); Potassium 3.7 mmol/L (3.5-5.1); Sodium 136 mmol/L (136-145)
[2021-08-25] MEDS: Calcium Citrate 950 MG TAB PO (19:08)
[2021-08-25 19:35] VITALS: BP 118/62; PULSE 98; TEMP 36.3; O2SAT 92
[2021-08-28 12:42] LABS: Hepatitis A Antibody IgM Negative (Negative); Hepatitis B Core Antibody Negative (Negative); Hepatitis B surface Ag Negative (Negative); Hepatitis C Ab w Rflx HCV PCR Negative (Negative)
== END 2021-08-25 19:47 | disposition home or self-care (01) ==
PROVIDERS: Physician Assistant; Emergency Provider Physician Assistant; PCP Nurse Practitioner
DX: R11.10 Vomiting, unspecified (principal); B37.0 Candidal stomatitis; F10.129 Alcohol abuse with intoxication, unspecified; R74.01 Elevation of levels of liver transaminase levels; R53.81 Other malaise; Y90.8 Blood alcohol level of 240 mg/100 ml or more
CPT/HCPCS: 36415; 80048; 80053; 83690; 86704; 86709; 86803; 87340; 87635; 93005; 96360; 96361; 99284; 76705; 80320; 81003; 81015; 82140; 83735; 84443; 84484; 85025; 85610; 85730; 93010

== ENCOUNTER 2021-11-22 01:17 | Outpatient (CLI) | payer MEDICAID, SELFPAY ==
--- NOTE | 2021-11-22 07:15 | DI.US_ITS ---
Exam(s) US PELVIS EXAM: US PELVIS CLINICAL HISTORY: post-menopausal bleeding,n95.0 TECHNIQUE: Ultrasound performed using standard protocol. COMPARISON: US US ABDOMEN LIMITED from 08/25/2021 FINDINGS: This examination was performed transabdominally only at the patient's request. Uterus measures 11.8 x 5 x 6.3 cm. Myometrium is predominantly homogeneous. There is a 3 cm in diameter posterior fundal presumed uterine fibroid, grossly unchanged from prior examination. Left ovary nonvisualized. Right ovary nonvisualized. Limited scanning of the kidneys is unremarkable. No free fluid in the cul-de-sac. IMPRESSION: Uterine fibroid noted. Limited examination due to transabdominal scanning only, ovaries nonvisualize d. DATA REPOSITORY:
== END 2021-11-22 01:37 ==
PROVIDERS: PCP Nurse Practitioner; Visit Provider Obstetrics & Gynecology
DX: N95.0 Postmenopausal bleeding (principal); D25.9 Leiomyoma of uterus, unspecified
CPT/HCPCS: 76856

== ENCOUNTER 2022-05-11 09:26 | Outpatient (REF) | payer MEDICAID, SELFPAY | END 2022-05-11 09:27 | disposition home or self-care (01) | LOC: LBN 09:26 | PROVIDERS: PCP Nurse Practitioner; Visit Provider Physician Assistant ==

== ENCOUNTER 2022-05-11 11:48 | Outpatient (REF) | payer MEDICAID, SELFPAY ==
--- NOTE | 2022-05-11 09:00 | SKI_PTH ---
PATIENT: Zhane Palacio LOC: [facility]#:[id number] AGE/SX: 56/F ROOM: RE05/11/[address]: Femi Cruz : 1965 BED: DIS: 05/11/2022 SPEC #: [id number] RECD: 05/11/22 17:06 STATUS: YUKI BALLARD #: [id number] SATISH: 05/11/22 09:[address]: Femi Cruz DEPT: Surgical Specimen RECD BY: Vale Antonio ENTERED: 05/11/22 17:08 SP TYPE: KATE THOMAS DR: Racquel Galvan Tissues: 1 - SKIN BIOPSY(SHAVE/PUNCH) Procedures: GROSS AND MICRO LEVEL 3 Comments: [id number]
[2022-05-11 15:41] LABS: ALT 113 U/L (14-59); AST 77 U/L (15-37); Albumin 3.6 g/dL (3.4-5.0); Alkaline Phosphatase 125 U/L (46-116); Bilirubin, Total 0.5 mg/dL (0.2-1.0); Total Protein 7.4 g/dL (6.4-8.2)
[2022-05-11 16:18] LABS: Bilirubin, Direct 0.2 mg/dL (0.0-0.2)
== END 2022-05-11 11:49 | disposition home or self-care (01) ==
LOC: NCHCN 11:48
PROVIDERS: PCP Nurse Practitioner; Visit Provider Physician Assistant
DX: R74.8 Abnormal levels of other serum enzymes (principal); L98.8 Other specified disorders of the skin and subcutaneous tissue
CPT/HCPCS: 80076; 88304; 88305

== ENCOUNTER 2023-03-04 15:25 | Outpatient (REF) | payer MEDICAID, SELFPAY ==
[2023-03-04 14:59] LABS: HCT 44.9 % (36.0-46.0); HGB 15.9 g/dL (11.2-15.7); MCH 34.3 pg (27.0-33.0); MCHC 35.4 % (32.0-36.0); MCV 97 fL (80-95); MPV 10.9 fL (8.0-11.0); Platelet Count 164 10^3/uL (130-400); RBC 4.63 10^6/uL (3.93-5.22); RDW 11.9 % (11.7-14.6); RDW-SD 42.6 fL; WBC 10.08 10^3/uL (4.4-10.8)
[2023-03-04 16:10] LABS: ALT 116 U/L (14-59); AST 108 U/L (15-37); Albumin 3.4 g/dL (3.4-5.0); Alkaline Phosphatase 134 U/L (46-116); BUN 6 mg/dL (7-18); Bilirubin, Total 0.5 mg/dL (0.2-1.0); CREATININE 0.9 mg/dL (0.55-1.02); Calcium 9.2 mg/dL (8.5-10.1); Calculated LDL 140 mg/dL (<100); Chloride 94 mmol/L (98-107); Cholesterol 259 mg/dL (<200); Glucose 112 mg/dL (74-106); HDL Cholesterol 106 mg/dL (40-60); Potassium 3.7 mmol/L (3.5-5.1); Sodium 136 mmol/L (136-145); Total Protein 7.3 g/dL (6.4-8.2); Triglyceride 66 mg/dL (<150)
== END 2023-03-04 15:26 | disposition home or self-care (01) ==
LOC: NCHCN 15:25
PROVIDERS: PCP Physician Assistant; Visit Provider Physician Assistant
DX: I10 Essential (primary) hypertension (principal)
CPT/HCPCS: 80053; 80061; 85027

== ENCOUNTER 2023-03-05 12:06 | Outpatient (CLI) | payer MEDICAID, SELFPAY ==
--- NOTE | 2023-03-05 | DI.RAD_ITS ---
Exam(s) XR CHEST 2V PA LATERAL EXAM: XR CHEST 2V PA LATERAL CLINICAL HISTORY: COUGH,R05.8. TECHNIQUE: 2D digital imaging was performed. COMPARISON: CR,XR XR PORTABLE CHEST AP from 05/27/2021 FINDINGS: 2 views: Heart size is normal. The mediastinum is not widened. Lungs are clear. No infiltrates nor pleural effusions. IMPRESSION: No acute pulmonary findings. DATA REPOSITORY: RADIATION DOSE DELIVERED:
== END 2023-03-05 12:26 ==
PROVIDERS: PCP Physician Assistant; Visit Provider Physician Assistant
DX: R05.8 Other specified cough (principal)
CPT/HCPCS: 71046

== ENCOUNTER 2023-03-26 01:08 | Outpatient (CLI) | payer MEDICAID, SELFPAY ==
--- NOTE | 2023-03-26 10:30 | DI.CT_ITS ---
Exam(s) CT ABDOMEN PELVIS W EXAM: CT ABDOMEN PELVIS W CLINICAL HISTORY: ABD PAIN, R10.9, ? VENTRAL HERNIA TECHNIQUE: Imaging Protocol: Axial computed tomography images with coronal and sagittal reformatted images were created and reviewed CONTRAST MATERIAL: Intravenous: Omnipaque 350 Contrast volume:100 mL Oral: Yes COMPARISON: No exams were available for comparison FINDINGS: ABDOMEN: Lung Bases: There is mild atelectasis in the lung bases. Liver: There is diffuse decreased attenuation of the liver suggesting fatty infiltration. The liver measures 17.5 cm long. No measurable mass. Portal, Superior Mesenteric, and Splenic Veins: Unremarkable. Gallbladder and Biliary Tract: No radiodense calculus or dilation. Pancreas: Normal density, no abnormal calcifications or inflammatory process. Spleen: Normal. Adrenals: No masses seen. Kidneys: Normal size, contour and axis. No radiodense stones or obstructive uropathy. There is a 0.8 cm simple cyst in the left kidney. No follow-up is recommended. No suspicious masses in the kidneys . Abdominal Aorta: Abdominal portion non-dilated. Atherosclerosis is present. Bowel: There is diverticulosis of the colon, but no evidence of acute diverticulitis. Appendix is un remarkable. There is no evidence of bowel wall thickening or obstruction. Peritoneal Cavity: No ascites, collection or mesenteric inflammatory response. No free air. Lymph Nodes: Within normal limits. Bones: Within normal limits for the patient's age. Soft Tissues: There is no evidence of an anterior abdominal wall hernia. PELVIS: Bladder: Symmetric distention, no gross wall thickening. Reproductive Organs: The uterus has a lobulated appearance and uterine fibroids are present. Lymph Nodes: Within normal limits. Bones: Within normal limits for the patient's age. IMPRESSION: 1. No evidence of an anterior abdominal wall hernia. 2. Mild hepatomegaly and fatty infiltration of the liver. RADIATION DOSE DELIVERED: 673.07mGy.cm Total DLP DATA REPOSITORY: All CT scans at this facility are submitted to the National Radiology Data Registry (NRDR) Dose Index Registry (DIR) with the [employer] (ACR). RADIATION OPTIMIZATION: All CT scans at this facility use at least one of these dose optimization te chniques: automated exposure control; mA and/or kV adjustment per patient size (includes targeted exa ms where dose is matched to clinical indication); or iterative reconstruction.
[2023-03-26] MEDS: Barium Sulfate 2% W/V-Berry Smoothie 450 ML BTL PO (10:33)
[2023-03-26] MEDS: Omnipaque 350 MG/ML 100 ML BTL IJ (10:33)
[2023-03-26] MEDS: Normal Saline - Diluent 50 ML VIAL IJ (10:34)
--- NOTE | 2023-03-26 11:42 | DI.MAMMO_ITS ---
Exam(s) MAMMO SCREENING EXAM: MAMMO SCREENING CLINICAL HISTORY: SCREENING, Z12.39 TECHNIQUE: Bilateral full field digital CC and MLO mammographic images were obtained with 3D tomosyn thesis and utilizing computer aided detection (CAD). COMPARISON: Available for comparison. FINDINGS: Masses/Architectural Distortion: There are bilateral breast nodules present. The largest is seen in the upper outer quadrant of the right breast. No areas of architectural distortion are seen. There is an area of breast asymmetry in the posterior upper left breast on the MLO view. This may represent overlying fibroglandular tissue but it appears more prominent compared to the prior examination. Microcalcifications: No suspicious pleomorphic-type are seen. Skin Thickening/Nipple Retraction: None. IMPRESSION: 1. Area of breast asymmetry in the posterior upper left breast on the MLO view. 2. This area should be further evaluated with a spot compression view. Ultrasound may be indicated at that time. BI-RADS Category 0 - Assessment Incomplete: Need additional imaging evaluation Breast Density - Category C - Heterogeneously dense Breast density category C or D implies that the patient has dense breast tissue. Dense breast tissue is very common and is not abnormal but dense breast tissue can make it harder to find cancer on a ma mmogram. Also, dense breast tissue may increase their breast cancer risk. This information about the result of the mammogram report was provided to the patient to raise their awareness. Use this report when you speak with the patient about their risks for breast cancer, which includes their family hist ory. At that time, you may recommend for more screening tests (Ultrasound or MRI) as they might be us eful based on their risk. A negative radiographic report should not delay biopsy if a dominant or clinically suspicious mass is present. Up to ten percent of cancers are not identified on mammography. A negative report may reinforce clinical impression. Adenosis and dense breasts may obscure an underlying neoplasm. False positive reports average 6 to 10%. Patient will receive a letter notifying them of these results.
== END 2023-03-26 01:28 ==
LOC: DI 01:09
PROVIDERS: PCP Physician Assistant; Visit Provider Physician Assistant
DX: R10.9 Unspecified abdominal pain (principal); R93.2 Abnormal findings on diagnostic imaging of liver and biliary tract
CPT/HCPCS: 77063; 77067; 74177; J3490

== ENCOUNTER 2023-03-29 00:49 | Outpatient (CLI) | payer MEDICAID, SELFPAY ==
--- NOTE | 2023-03-29 | DI.US_ITS ---
Exam(s) MG MAMMO SCREEN CALL BACK UNI US BREAST LT COMPLETE EXAM: MG MAMMO SCREEN CALL BACK UNI LEFT AND COMPLETE LEFT BREAST ULTRASOUND CLINICAL HISTORY: F/U MAMMO, R92.8,ASYMMETRY UPPER LT BREAST,BILAT NODULES. TECHNIQUE: Unilateral BREAST spot mammographic images obtained with 3D tomosynthesisand utilizing co mputer aided detection (CAD). . Complete LEFT breast Ultrasound was also performed, including all 4 quadrants, the retroareolar regio n, and the ipsilateral axilla. COMPARISON: Prior mammograms were reviewed. This additional imaging was performed due to findings described on the recent screening mammogram of 03/26/2023. FINDINGS: DIAGNOSTIC MAMMOGRAM: Additional mammographic views performed todayrender this area less concerning and similar in appearan ce to prior mammograms.. COMPLETE LEFT BREAST ULTRASOUND: Ultrasound performed today reveals no evidence of solid or significant cystic lesions in all 4 quadra nts.. Scanning of the ipsilateral axilla reveals no significant adenopathy. IMPRESSION: 1. No radiographic evidence of malignancy in the left breast. 2. Negative complete left breast ultrasound Appropriate follow-up is to give this patient on a yearly mammogram schedule, with earlier imaging i f a self detected breast change is noted.. The patient was informed of these findings and recommendations by myself prior to leaving the departm ent today. BI-RADS Category 2 - Benign Findings Breast Density - Category B - Scattered areas of fibroglandular density Breast density Category C or D implies that the patient has dense breast tissue. Dense breast tissue can make it harder to find cancer on a mammogram. Dense breast tissue is also associated with an incr eased risk of breast cancer. This information about the result of the mammogram report was provided to the patient to raise their awareness. Use this report when you speak with the patient about their risks for breast cancer, which includes their family history. At that time, you may recommend additional screening tests (Ultrasoun d or MRI) as these tests may add significant information. A negative radiographic report should not delay biopsy if a dominant or clinically suspicious mass is present. Up to ten percent of cancers are not identified on mammography. A negative report may reinforce clinical impression. Adenosis and dense breasts may obscure an underlying neoplasm. False positive reports average 6 to 10%. Patient will receive a letter notifying them of these results.
== END 2023-03-29 01:09 ==
LOC: DI 00:49
PROVIDERS: PCP Physician Assistant; Visit Provider Physician Assistant
DX: R92.8 Other abnormal and inconclusive findings on diagnostic imaging of breast (principal); Z12.31 Encounter for screening mammogram for malignant neoplasm of breast
CPT/HCPCS: 76642; 77063; 77067

== ENCOUNTER 2023-05-29 11:03 | Outpatient (REF) | payer MEDICAID, SELFPAY ==
[2023-05-29 16:30] LABS: Magnesium 2.1 mg/dL (1.8-2.4); TSH (W/Ref FT4) 3.17 uIU/mL (0.36-3.74); Vitamin B12 915 pg/mL (193-986)
[2023-05-29 16:31] LABS: Ferritin > 2000 ng/mL (8-252)
[2023-05-29 16:39] LABS: C-Reactive Protein 1.63 mg/dL (0.0-0.3)
== END 2023-05-29 11:04 | disposition home or self-care (01) ==
LOC: NCHCN 11:03
PROVIDERS: PCP Physician Assistant; Visit Provider Family Medicine
DX: G62.9 Polyneuropathy, unspecified (principal); F10.90 Alcohol use, unspecified, uncomplicated; R74.8 Abnormal levels of other serum enzymes; R63.4 Abnormal weight loss
CPT/HCPCS: 82607; 82728; 83735; 84443; 86140

== ENCOUNTER 2023-06-09 13:07 | Inpatient (IN) | payer MEDICAID, SELFPAY ==
[2023-06-09] VITALS (30 sets, daily range): BP systolic 108–150; BP diastolic 59–87; PULSE 86–107; RESP 4–24; TEMP 36.5–37.2; O2SAT 92–100
--- NOTE | 2023-06-09 13:45 | DI.CT_ITS ---
Exam(s) CT CHEST/ABD/PEL W EXAM: CT CHEST/ABD/PEL W CLINICAL HISTORY: nausea vomiting. TECHNIQUE: Imaging Protocol: Axial computed tomography images with coronal and sagittal reformatted images were created and reviewed CONTRAST MATERIAL: Intravenous: Omnipaque 350 Contrast volume:100 ml Oral: no COMPARISON: MG SCREENING TARA MAMMO W/CAD DIGI from 01/22/2013 US PELVIS TRANSVAG from 01/24/2015 US US PELVIS from 11/22/2021 MG MG MAMMO SCREENING from 03/26/[address] ABDOMEN PELVIS W from 03/26/2023 FINDINGS: CHEST: Tracheobronchial tree: Patent where visualized. Pulmonary parenchyma: Mild emphysematous changes and mild interstitial changes. Mild ground-glass op acities seen in the right middle lobe, lingula and left lower lobe. Findings likely represent viral pneumonitis. No consolidation or dominant measurable mass. Pleura: No effusion or pneumothorax. Lymph nodes: Within normal limits. Aorta: Thoracic portion non-dilated. Heart: Normal size. No coronary artery calcifications or pericardial effusion. Bones: Unremarkable for age. No lytic or blastic lesions.No compression fractures. Soft tissues: Right breast nodule, stable on mammograms back to 2012. ABDOMEN: Liver: Mild hepatic steatosis. No measurable mass. Gallbladder and biliary tract: No radiodense calculus or dilation. Pancreas: Normal density, no abnormal calcifications or inflammatory process. Spleen: Normal. Kidneys: Normal size, contour and axis. No radiodense stones or obstructive uropathy. No suspicious m asses seen. Adrenal glands: No masses seen. Aorta: Abdominal portion non-dilated. Moderate atherosclerotic changes. Lymph nodes: Within normal limits. Soft tissues: Unremarkable. PELVIS: Bladder: Symmetric distention. Mild wall thickening. Bowel: Sigmoid diverticulosis. No evidence of diverticulitis. No obstruction or bowel wall thickeni ng. Appendix normal. Or Peritoneal cavity: No ascites, collection or mesenteric inflammatory response. Bones: Unremarkable for age.. Reproductive organs: Multiple uterine fibroids. Fibroids appear to have enlarged when compared the p revious exam. There is also fluid within the endometrial cavity versus fluid within the endometrial cavity. As well as an endometrial calcification. IMPRESSION: Ground-glass pulmonary infiltrates consistent with viral pneumonitis. No acute abnormality of the bowel. Diverticulosis. Enlarging uterine fibroids. Fluid in the endometrium versus endometrial thickening. Pelvic ultrasou nd recommended. Mild urinary bladder wall thickening could indicate cystitis versus under distension. RADIATION DOSE DELIVERED: 993.22mGy.cm Total DLP DATA REPOSITORY: All CT scans at this facility are submitted to the National Radiology Data Registry (NRDR) Dose Index Registry (DIR) with the [employer] (ACR). RADIATION OPTIMIZATION: All CT scans at this facility use at least one of these dose optimization te chniques: automated exposure control; mA and/or kV adjustment per patient size (includes targeted exa ms where dose is matched to clinical indication); or iterative reconstruction.
--- NOTE | 2023-06-09 13:48 | ED.GENADUL_ITS ---
Discharge Plan Disposition Patient Disposition: Admit to [facility] Discharge Details Clinical Impression: Alcohol withdrawal, Nausea & vomiting, Breast mass, right, Mass of uterus, Elevated liver transaminase level, Hypomagnesuria, Hypokalemia due to excessive gastrointestinal loss of potassium Admit Date/Time: 06/09/23 16:28 Admit Provider: Fransisco iMchele Attending Provider: Fransisco Michele Primary Care Provider: Femi Cruz ED Provider: Deborah Mcdonald Discharge Data Discharge Date/Time-TO BE ENTERED AT DEPARTURE: 06/09/23 18:11 Discharge Physician: Deborah Mcdonald Medical Decision Making This is a 57-year-old female who presents with nausea vomiting and tremors after attempting to stop alcohol. Other considerations include benzodiazepine withdrawal since she takes that chronically as well and did not take it today. She does not appear to have signs of florid DTs but alcohol withdrawal is likely. She denies taking any additional drugs although this is always a co nsideration. She is denying any abdominal pain but is having nausea and vomiting. She has not had any foreign travel or unusual foods. She denies any fever or trauma. My plan is to obtain blood work including a CBC to check for leukocytosis and anemia as well as a left shift. We will give her IV fluids and Ativan. I will order a CT scan of the abdomen and pelvis to rule out small bowel obstruction, or other intra-abdominal pathology. We will likely admit her to the hospitalist service for alcohol withdrawal. I will also order multivitamins and a magnesium level since she is a heavy drinker. We will check electrolytes to rule out hyponatremia from excessive beer ingestion. It is unlikely this is gastroenteritis or foodborne illness and she has not had any diarrhea. Differential Diagnosis Differential Diagnosis: Withdrawal from alcohol or benzodiazepines. Gastroparesis, gastroenteritis Lab Data Lab results reviewed: Yes I reviewed the patient's lab results. Lab results narrative: Mild hyponatremia, normal white count, mild hypocalcemia HPI General Date/Time Provider Initiated Documentation: 06/09/23 13:48 . Information obtained by: patient . HPI Narrative: Time seen was 1549 in bed 1. The patient is a 57-year-old female who drinks 4 cans of beer a day who presents with vomiting which began at 1130 last night. She denies any unusual foods or diarrhea. Her only past abdominal/pelvic surgical history is a distant . She is also complaining of feeling weak and shaky. She usually takes alprazolam but has not taken any today. She denies any diarrhea or blood in the stool. She began vomiting last night. She said she has had dry heaves today. She denies any blood in the stool. She denies any fevers or chills. She has never stopped drinking alcohol for any significant period of time and it is not clear whether she is ever had withdrawal symptoms. She said she last drank last night. She denies any trauma or falls. She denies any other aggravating or alleviating factors. She denies any previous similar episodes. She denies any dysuria, trauma. She later told the nurse that her last drink was this morning. She has never been to AA but does have some desire to quit drinking. She denies any visual hallucinations. She denies using any illicit drugs. She has no history of pancreatitis. She denies chest or abdominal pain. She denies shortness of breath. She denies any headache. She denies suicidal or homicidal ideation. Related Data Home Medications Medication Instructions Recorded Confirmed albuterol sulfate 90 mcg/actuation 2 puff inhalation Q6H PRN 08/13/17 06/09/23 aerosol inhaler (ProAir HFA) alprazolam 0.5 mg tablet (Xanax) 0.5 mg PO DAILY 08/13/17 06/09/23 budesonide-formoterol HFA 160 2 puff inhalation BID 09/20/22 06/09/23 mcg-4.5 mcg/actuation aerosol inhaler (Symbicort) inhalational spacing device #1 ea 09/20/22 06/09/23 (Aerochamber MV spacer) lisinopril 10 1 tab PO DAILY 06/09/23 06/09/23 mg-hydrochlorothiazide 12.5 mg tablet ondansetron 4 mg disintegrating 4 mg PO Q6H PRN #20 tabs 06/10/23 tablet potassium chloride 20 mEq 20 meq PO DAILY #30 tabs 06/10/23 tablet,extended release Previous Rx's Medication Instructions Recorded inhalational spacing device #1 ea 09/20/22 (Aerochamber MV spacer) ondansetron 4 mg disintegrating 4 mg PO Q6H PRN #20 tabs 06/10/23 tablet potassium chloride 20 mEq 20 meq PO DAILY #30 tabs 06/10/23 tablet,extended release Allergies Allergy/AdvReac Type Severity Reaction Status Date / Time trazodone Allergy Severe Unverified 06/09/23 17:57 erythromycin base AdvReac Severe stomache Unverified 06/09/23 17:57 [Erythromycin Base] pain/nausea diphenhydramine HCl AdvReac Intermediate Jittery Unverified 06/09/23 17:57 [From Tylenol PM] General Stated Complaint: Nausea/Vomit/Diar KAMILA: 3 PFSH All Active Problems Hypertension (Chronic) Hypothyroidism (Chronic) Breast mass, right (Chronic) Mass of uterus (Chronic) Post-menopausal bleeding (Acute) Medical History Anxiety Bronchitis Chronic rhinitis Insomnia Intramural uterine fibroid Obesity Smoker Surgical History Biopsy of breast section X 2 Ligation of fallopian tube Social History Smoking/Tobacco Use Status: Current every day Tobacco Type: cigarettes Years smoked: 34 Smoking risk assessment performed?: Yes Alcohol Intake: current Alcohol Intake frequency: 3 or more drinks per day Drug use: Never Substance use type: does not use Housing: house Do you feel safe at home: Yes Do you feel safe in your relationship?: Yes History History Para 2 Hx # Term Pregnancies Multiple births Hx # Pregnancies Ectopic pregnancies AB induced Hx Number of Living Children 2 AB spontaneous Exam Const General: cooperative, healthy appearing, comfortable, no acute distress, well developed, well groomed and well hydrated Nutritional Appearance: average body habitus and well nourished Orientation: alert, awake and oriented x3 HENMT Head: normal to inspection, normocephalic and atraumatic Ears: hearing grossly normal bilaterally and external ears normal General nose exam: external nose normal, nares normal and no nasal discharge Face and sinus: normal facial exam, sinuses nontender and face symmetric Mouth: oral mucosae normal, lip normal, tongue normal, oropharynx normal, moist mucous membranes and other (Normal phonation. The patient is handling secretions.) Throat: posterior oropharynx normal and uvula midline Eyes General: appearance normal, both eyes and all related structures Eyelids: eyelids normal Conjunctivae: conjunctivae normal Sclera: sclerae normal Cornea: corneas normal Pupils: PERRL EOM: EOM intact bilaterally and No nystagmus Neck Neck: normal visual inspection, full ROM, no lymphadenopathy, no meningeal signs, trachea midline and supple Lymphatic: no lymphadenopathy noted Chest Chest: normal inspection of the chest Resp Effort & Inspection: normal respiratory effort, able to speak in complete sentences, no audible wheezes, no nasal flaring, no respiratory distress, no retractions, no stridor, not tachypneic, no tracheal deviation, no use of accessory muscles, No prolonged expiratory phase and other (Normal inspiratory to expiratory ratio.) Auscultation: clear to auscultation bilaterally, no rales, no rhonchi, no wheezes and no rubs Tactile Fremitus: tactile fremitus absent Cardio Jugular venous pressure: no JVD Palpation: normal PMI Rate: regular rate Rhythm: regular rhythm Heart Sounds: S1 normal, S2 normal, no gallops, no murmurs and no rubs GI Inspection: normal to inspection and non-distended Palpation: soft, no hepatosplenomegaly and no guarding Auscultation: normal bowel sounds Other: Her abdomen reveals mild diffuse tenderness primarily in the epigastrium. There is no rebound guarding or masses. No pulsatile masses or bruits. No ecchymoses General: No CVA tenderness Back/Spine/Pelvis Back: no CVA tenderness and No back tenderness Cervical Spine: normal cervical lordosis, cervical ROM normal, No cervical muscular tenderness, No pain with cervical ROM, No cervical spinal tenderness and No step off deformity Thoracic/Lumbar Spine: thoracic and lumbar spine normal to inspection, No thoracic spinal tenderness and No lumbar spinal tenderness Pelvis: no pain with anterior-posterior compression and no pain with lateral compression Skin General skin exam: no rashes or lesions noted, turgor normal, no petechiae, no purpura and other (Skin is normal for ethnicity.) Lesions: no lesions Rashes: no rashes Trauma: no lacerations or abrasions Neuro General: patient alert, patient awake, patient oriented x3, moves all extremities, no meningeal signs, no focal motor deficits and CN's II-XI intact bilaterally Cranial Nerves: CN's II-XI intact bilaterally, PERRL, accommodation normal, EOM intact bilaterally, no nystagmus, facial strength normal, tongue midline, hearing normal and no nystagmus Cognition: normal cognition Speech: speech normal Gait: normal gait Motor: muscle tone normal throughout and strength 5/5 throughout Sensory Exam: no sensory deficits noted Other: The patient is mildly tremulous. Extrem General: normal to inspection, full ROM, capillary refill normal, no clubbing, cyanosis or edema and no calf tenderness Psych Appearance: grossly normal Affect: normal affect Attitude: cooperative Thought Process: normal Thought Content: normal Insight: insight good Judgment: judgment good Other: The patient appears to have capacity make medical decisions. Course Dr. Daley from [facility] call to notify me of the right breast mass and of the mass in the uterus. I have notified the patient of these findings. Reevaluation(s) Initial Evaluation: The patient's lungs are clear after her DuoNeb. She subjectively feels improved. She is able to keep down p.o. fluids. I have spoken with the hospitalist and admitted her Vital Signs Vital signs: Vital Signs Temperature 36.8 C 06/09/23 13:12 Pulse 90 06/09/23 13:12 Respiratory Rate 20 06/09/23 13:12 Blood Pressure 150/82 H 06/09/23 13:12 Pulse Oximetry 98 06/09/23 13:12 Temperature 36.8 C 06/09/23 13:12 Temperature Source Oral 06/09/23 13:12 Pulse 90 06/09/23 13:12 Respiratory Rate 20 06/09/23 13:12 Respiratory Effort Normal, Non-Labored 06/09/23 13:15 Blood Pressure 150/82 H 06/09/23 13:12 Blood Pressure Position Sitting 06/09/23 13:12 Pulse Oximetry 98 06/09/23 13:12 Oxygen Delivery Method Room Air 06/09/23 13:12 Oxygen Flow Rate 0 06/09/23 13:12 Pain Level 0 06/09/23 13:12 Critical Care Time Critical Care Time Critical Care Time: Yes Total Critical Care Time: 41 Attestation: This was time spent at the bedside, reviewing the patient's blood work and comparing it to previous labs. Discussion with hospitalist and review of interventions, past medical history
--- NOTE | 2023-06-09 14:00 | RT.EKG_ITS ---
APPROVED REPORT Exam: Resting ECG Reason for Exam: rule out arrythmia Patient Location: E HR:91 bpm ECG Measurements Heart Rate 91 AXIS MT 135 P 50 QRSd 92 QRS 41 QT 403 T 53 QTc 498 Conclusion Sinus rhythm...normal P axis, V-rate 60- 99 no STEMI Inferior Q waves? significance. NO significant changes from previous.
[2023-06-09 14:12] LABS: Abs Immature Grans 0.06 10^3/uL (0.0-0.06); Absolute Basophil Count 0.05 10^3/uL (0.0-0.2); Absolute Eosinophil Count 0.01 10^3/uL (0.0-0.7); Absolute Lymphocyte Count 1.06 10^3/uL (1.2-3.4); Absolute Monocyte Count 0.92 10^3/uL (0.1-0.8); Absolute Neutrophil Count 7.94 10^3/uL (1.2-6.7); Basophils % 0.5; Eosinophils % 0.1; HCT 40.3 % (36.0-46.0); HGB 14.3 g/dL (11.2-15.7); Immature Grans % 0.6; Lymphocytes % 10.6; MCH 33.3 pg (27.0-33.0); MCHC 35.5 % (32.0-36.0); MCV 94 fL (80-95); MPV 10.3 fL (8.0-11.0); Monocytes % 9.2; Platelet Count 191 10^3/uL (130-400); RBC 4.29 10^6/uL (3.93-5.22); RDW 12.5 % (11.7-14.6); RDW-SD 42.8 fL; WBC 10.04 10^3/uL (4.4-10.8)
[2023-06-09] MEDS: Ondansetron 4 MG/2 ML VIAL IVP (14:19)
[2023-06-09] MEDS: LORazepam 2 MG/ML VIAL 1 MG IVP (14:22)
[2023-06-09] MEDS: Albuterol/Ipratropium 3 ML UPD VIAL UPD (14:24)
[2023-06-09] MEDS: Normal Saline Flush 10 ML SYR IVP ×2 (14:26→20:36)
[2023-06-09 14:36] LABS: ALT 115 U/L (14-59); AST 75 U/L (15-37); Albumin 3.6 g/dL (3.4-5.0); Alkaline Phosphatase 114 U/L (46-116); Anion Gap 12.3 mmol/L (3-11); BUN 2 mg/dL (7-18); Bilirubin, Total 0.5 mg/dL (0.2-1.0); CO2 28.7 mmol/L (21.0-32.0); CREATININE 0.8 mg/dL (0.55-1.02); Calcium 9.2 mg/dL (8.5-10.1); Chloride 91 mmol/L (98-107); Estimated GFR 86.96 (mL/min/1.73m2); Glucose 116 mg/dL (74-106); Lipase 24 U/L (16-77); Magnesium 1.2 mg/dL (1.8-2.4); Potassium 3.1 mmol/L (3.5-5.1); Sodium 132 mmol/L (136-145); TSH (W/Ref FT4) 6.72 uIU/mL (0.36-3.74); Total Protein 7.7 g/dL (6.4-8.2); Troponin I < 50 ng/L (<or=60)
[2023-06-09 14:37] LABS: PTT Activated 23.6 sec (21.5-31.9); Prothrombin Time 9.8 sec (9.3-11.0)
[2023-06-09 14:40] LABS: ETHANOL BLOOD < 3.0 mg/dL (<10)
[2023-06-09] MEDS: Normal Saline 1,000 ML 150 ML IV (14:47)
[2023-06-09 14:57] LABS: Bilirubin Negative (Negative); Blood Negative (Negative); Clarity Clear (Clear); Glucose Negative (Negative); Ketones Negative (Negative); Leukocyte Esterase Negative (Negative); Nitrite Negative (Negative); Specific Gravity 1.015 (1.005-1.025); Urobilinogen 0.2 mg/dL (Up to 0.2); pH 7.5 (5-8)
[2023-06-09] MEDS: Omnipaque 350 MG/ML 100 ML BTL IJ (15:16)
[2023-06-09] MEDS: Normal Saline - Diluent 50 ML VIAL IJ (15:16)
[2023-06-09 15:22] LABS: FREE T4 0.92 ng/dL (0.76-1.46)
--- NOTE | 2023-06-09 15:44 | DI.VRAD_ITS ---
Addendum created by Sarah Daley MD on 06/09/2023 3:49:22 PM EDT: I discussed case findings with HARISHBARRIE RAMIREZ 06/09/2023 3:47 PM EDT. Initial report created on 06/09/2023 3:42:33 PM EDT: PROCEDURE INFORMATION: Exam: CT Chest With Contrast; Diagnostic Exam date and time: 06/09/2023 3:00 PM Age: 57 years old Clinical indication: Nausea and vomiting TECHNIQUE: Imaging protocol: Diagnostic computed tomography of the chest with contrast. 3D rendering (Not supervised by radiologist): MIP and/or 3D reconstructed images were created by the technologist. Contrast material: OMNIPAQUE 350; Contrast volume: 100 ml; Contrast route: INTRAVENOUS (IV); COMPARISON: CR XR CHEST 2V PA LATERAL 03/05/2023 10:12 AM FINDINGS: Lungs: There is some mild hazy pneumonitis and ground-glass change at the lingular level and left lower lobe, minimal. These were not definitely appreciated on previous exam. Pleural spaces: Unremarkable. No pneumothorax. No pleural effusion. Heart: Unremarkable. No cardiomegaly. No pericardial effusion. Lymph nodes: Unremarkable. No enlarged lymph nodes. Vasculature: Unremarkable. No aortic aneurysm. Bones/joints: Unremarkable. No acute fracture. Soft tissues: There is a soft tissue mass in the right breast measuring 2.9 cm. IMPRESSION: 1. Follow-up right breast mass. 2. Minimal hazy ground-glass pneumonitis in the lingula and left lower lobe, possible viral process. PROCEDURE INFORMATION: Exam: CT Abdomen And Pelvis With Contrast Exam date and time: 06/09/2023 3:00 PM Age: 57 years old Clinical indication: Nausea and vomiting TECHNIQUE: Imaging protocol: Computed tomography of the abdomen and pelvis with contrast. 3D rendering (Not supervised by radiologist): MIP and/or 3D reconstructed images were created by the technologist. Contrast material: OMNIPAQUE 350; Contrast volume: 100 ml; Contrast route: INTRAVENOUS (IV); COMPARISON: CT ABDOMEN PELVIS W 03/26/2023 10:53 AM FINDINGS: Liver: Fatty liver. Gallbladder and bile ducts: Normal. No calcified stones. No ductal dilation. Pancreas: Normal. No ductal dilation. Spleen: Normal. No splenomegaly. Adrenal glands: Normal. No mass. Kidneys and ureters: Normal. No hydronephrosis. Stomach and bowel: There may be some mild wall thickening involving the sigmoid colon. There is no significant adjacent inflammatory change. Appendix: No evidence of appendicitis. Intraperitoneal space: Unremarkable. No free air. No significant fluid collection. Vasculature: Mild atherosclerotic change present in the vasculature. Lymph nodes: Unremarkable. No enlarged lymph nodes. Urinary bladder: Allowing for the degree of distention there may be mild bladder wall thickening. Reproductive: There is a slightly bilobed dominant area of low-density at the left fundal aspect of the uterus measuring 3.6 cm. This appears to have enlarged compared to previous study. Bones/joints: Unremarkable. No acute fracture. Soft tissues: Unremarkable. IMPRESSION: 1. Lobular low-density abnormality in the left aspect of the uterine fundus appears to have enlarged since previous exam. While this could represent necrotic fibroid, neoplasm or even infection are not excludable. Follow-up is recommended. 2. Possible, early acute diverticulitis at sigmoid level. 3. Possible mild cystitis. Dictated and Authenticated by: Sarah Daley MD. Ordering:ASHWIN Cabrera MD
[2023-06-09] MEDS: MAGNESIUM SULFATE 2 GM/50 ML BAG IVPB (16:25)
[2023-06-09] MEDS: Potassium Chloride Liquid 20 MEQ PKT PO (16:31)
[2023-06-09 16:51] LABS: Troponin I < 50 ng/L (<or=60)
[2023-06-09] MEDS: MAGNESIUM SULFATE 8.12 MEQ, MULTIVITAMIN 10 ML, THIAMINE 100 MG, FOLIC ACID 1 MG in Nor... 168.867 MG IV (17:08)
[2023-06-09 17:11] LABS: *AMPHETAMINES SCREEN URINE Negative (Negative); *BARBITURATES SCREEN URINE Negative (Negative); *BENZODIAZEPINES SCREEN URINE Negative (Negative); Cannabinoids THC Negative (Negative); Cocaine Screen,Urine Negative (Negative); METHADONE URINE SCREEN Negative (Negative); OPIATES URINE SCREEN Negative (Negative)
[2023-06-09 17:12] LABS: Tricyclic Antidepressants Negative (Negative)
[2023-06-09 17:25] LABS: Procalcitonin 0.1 ng/mL
[2023-06-09] MEDS: PHENobarbital 110 MG in Normal Saline 50 ML 100 MG IVPB (17:43)
--- NOTE | 2023-06-09 19:26 | HPE_ITS ---
Date of service: 06/09/23 Time of Service: 19:27 Assessment and Plan Assessment and plan (1) Alcohol withdrawal: Status: Acute Assessment and plan: IVF CIWA - benzo scale Banana bag Monitor VS - currently stable HR sinus 80s BP 124/68 SPO2 100% RA afebrile 36.7 (2) Nausea & vomiting: Status: Acute Assessment and plan: ondansetron for nausea IVF (3) Breast mass, right: Status: Chronic Assessment and plan: New work up - is being worked up out patient (4) Mass of uterus: Status: Chronic Assessment and plan: Being worked up out patient (5) Elevated liver transaminase level: Status: Acute Assessment and plan: AST 75 ALT 115 Both improved since 03/26 (6) Hypomagnesuria: Status: Acute Assessment and plan: 1.2, replete, recheck 06/10 (7) Hypokalemia due to excessive gastrointestinal loss of potassium: Status: Acute Assessment and plan: 3.1 - replete, recheck 06/10 (8) Smoker: Assessment and plan: Offer nicotine replacement (9) Anxiety: Assessment and plan: Receiving lorazepam per CIWA, will help (10) Hyponatremia: Status: Acute Assessment and plan: 132; NS 125 ml/h Check 06/10 (11) Hypothyroidism: Status: Chronic Assessment and plan: TSH 6.72 up from 3.17 05/29/23 - [facility] - does not take thyroid replacement. (12) Hypertension: Status: Chronic Assessment and plan: Continue lisinopril/hctz monitor BP Discussed with Dr Michele History of Present Illness History of Present Illness Chief Complaint: Vomiting Narrative: this is a 57 year old female patient with past medical history of alcoholism, admits to 4 beer/d everyday, who presented to the [facility] ED with complaint of vom iting. No fever, no diarrhea. She otherwise has no medical history and takes no meds. She is admitted to the hospital for alcohol withdrawal and will be put on CIWA scale w benzodiazepine and banana bag. Review of Systems All systems reviewed & are unremarkable except as noted in HPI and below PFSH All Active Problems (Updated 06/09/23 @ 19:42 by Dulce Gonsalez NP) Hypertension (Chronic) Hypothyroidism (Chronic) Hyponatremia (Acute) Alcohol withdrawal (Acute) Nausea & vomiting (Acute) Breast mass, right (Chronic) Mass of uterus (Chronic) Elevated liver transaminase level (Acute) Hypomagnesuria (Acute) Hypokalemia due to excessive gastrointestinal loss of potassium (Acute) Post-menopausal bleeding (Acute) Medical History Anxiety Bronchitis Chronic rhinitis Insomnia Intramural uterine fibroid Obesity Smoker Surgical History Biopsy of breast section X 2 Ligation of fallopian tube Social History Smoking/Tobacco Use Status: Current every day Tobacco Type: cigarettes Years smoked: 34 Smoking risk assessment performed?: Yes Alcohol Intake: current Alcohol Intake frequency: 3 or more drinks per day Drug use: Never Substance use type: does not use Housing: house Do you feel safe at home: Yes Do you feel safe in your relationship?: Yes History History Para 2 Hx # Term Pregnancies Multiple births Hx # Pregnancies Ectopic pregnancies AB induced Hx Number of Living Children 2 AB spontaneous Meds Allergies and Home Medications Allergies Allergy/AdvReac Type Severity Reaction Status Date / Time trazodone Allergy Severe Unverified 06/09/23 17:57 erythromycin base AdvReac Severe stomache Unverified 06/09/23 17:57 [Erythromycin Base] pain/nausea diphenhydramine HCl AdvReac Intermediate Jittery Unverified 06/09/23 17:57 [From Tylenol PM] Home Medications Medication Instructions Recorded Confirmed Type albuterol sulfate 90 mcg/actuation 2 puff inhalation Q6H PRN 08/13/17 06/09/23 History aerosol inhaler (ProAir HFA) alprazolam 0.5 mg tablet (Xanax) 0.5 mg PO DAILY 08/13/17 06/09/23 History budesonide-formoterol HFA 160 2 puff inhalation BID 09/20/22 06/09/23 History mcg-4.5 mcg/actuation aerosol inhaler (Symbicort) inhalational spacing device #1 ea 09/20/22 06/09/23 Rx (Aerochamber MV spacer) lisinopril 10 1 tab PO DAILY 06/09/23 06/09/23 History mg-hydrochlorothiazide 12.5 mg tablet Exam Const General: cooperative, comfortable, no acute distress, well developed, anxious and ill appearing acutely Nutritional Appearance: well nourished and overweight Orientation: alert and awake HENMA Head: normal to inspection Mouth: mucous membranes dry (dry) Throat: posterior oropharynx normal Eyes General: appearance normal, both eyes and all related structures Resp Effort & Inspection: normal respiratory effort, able to speak in complete sentences and no respiratory distress Auscultation: no rales and no rhonchi Cardio Rate: regular rate Rhythm: regular rhythm Heart Sounds: S1 normal and S2 normal GI Inspection: normal to inspection and obesity Palpation: soft, no hepatosplenomegaly, not firm, no guarding, no masses, not ri gid and nontender Percussion: normal to percussion Auscultation: normal bowel sounds Back/Spine/Pelvis Back: no CVA tenderness Skin General skin exam: no rashes or lesions noted Trauma: no lacerations or abrasions Neuro General: patient alert and patient awake Cognition: normal cognition Speech: speech normal Gait: normal gait Extrem General: no pedal edema, no calf tenderness and normal gait Psych Appearance: grossly normal and well kempt Mental Status: mental status grossly normal Speech and Movement: speech and movement normal Results Labs 06/09/23 14:02 06/09/23 14:02 Labs: Laboratory Results - last 24 hr 06/09/23 06/09/23 06/09/23 14:02 14:02 14:09 WBC 10.04 RBC 4.29 Hgb 14.3 Hct 40.3 MCV 94 MCH 33.3 H MCHC 35.5 RDW 12.5 Plt Count 191 MPV 10.3 Immature Gran % 0.6 Neutrophils % 79.0 Lymphocytes % 10.6 Monocytes % 9.2 Eosinophils % 0.1 Basophils % 0.5 Nucleated RBC % 0.0 Absolute Neutrophils 7.94 H Absolute Lymphocytes 1.06 L Absolute Monocytes 0.92 H Absolute Eosinophils 0.01 Absolute Basophils 0.05 PT 9.8 INR 1.0 APTT 23.6 Sodium 132 L Potassium 3.1 L Chloride 91 L Carbon Dioxide 28.7 Anion Gap 12.3 H BUN 2 L Creatinine 0.8 Est GFR (CKD-EPI 2020) 86.96 Glucose 116 H Calcium 9.2 Magnesium 1.2 L Total Bilirubin 0.5 AST 75 H ALT 115 H Alkaline Phosphatase 114 Troponin I < 50 Total Protein 7.7 Albumin 3.6 Lipase 24 Procalcitonin TSH 6.72 H Free T4 0.92 Urine Color Urine Clarity Urine pH Ur Specific Dalton Urine Protein Urine Ketones Urine Blood Urine Nitrite Urine Bilirubin Urine Urobilinogen Ur Leukocyte Esterase Urine Glucose Urine Opiates Screen Urine Methadone Screen Ur Barbiturates Screen Ur Tricyclics Screen Ur Amphetamines Screen U Benzodiazepines Scrn Urine Cocaine Screen Ur THC Screen Ethyl Alcohol < 3.0 06/09/23 06/09/23 06/09/23 14:45 14:45 16:28 WBC RBC Hgb Hct MCV MCH MCHC RDW Plt Count MPV Immature Gran % Neutrophils % Lymphocytes % Monocytes % Eosinophils % Basophils % Nucleated RBC % Absolute Neutrophils Absolute Lymphocytes Absolute Monocytes Absolute Eosinophils Absolute Basophils PT INR APTT Sodium Potassium Chloride Carbon Dioxide Anion Gap BUN Creatinine Est GFR (CKD-EPI 2020) Glucose Calcium Magnesium Total Bilirubin AST ALT Alkaline Phosphatase Troponin I < 50 Total Protein Albumin Lipase Procalcitonin TSH Free T4 Urine Color Yellow Urine Clarity Clear Urine pH 7.5 Ur Specific Dalton 1.015 Urine Protein Negative Urine Ketones Negative Urine Blood Negative Urine Nitrite Negative Urine Bilirubin Negative Urine Urobilinogen 0.2 Ur Leukocyte Esterase Negative Urine Glucose Negative Urine Opiates Screen Negative Urine Methadone Screen Negative Ur Barbiturates Screen Negative Ur Tricyclics Screen Negative Ur Amphetamines Screen Negative U Benzodiazepines Scrn Negative Urine Cocaine Screen Negative Ur THC Screen Negative Ethyl Alcohol 06/09/23 16:28 WBC RBC Hgb Hct MCV MCH MCHC RDW Plt Count MPV Immature Gran % Neutrophils % Lymphocytes % Monocytes % Eosinophils % Basophils % Nucleated RBC % Absolute Neutrophils Absolute Lymphocytes Absolute Monocytes Absolute Eosinophils Absolute Basophils PT INR APTT Sodium Potassium Chloride Carbon Dioxide Anion Gap BUN Creatinine Est GFR (CKD-EPI 2020) Glucose Calcium Magnesium Total Bilirubin AST ALT Alkaline Phosphatase Troponin I Total Protein Albumin Lipase Procalcitonin 0.1 TSH Free T4 Urine Color Urine Clarity Urine pH Ur Specific Dalton Urine Protein Urine Ketones Urine Blood Urine Nitrite Urine Bilirubin Urine Urobilinogen Ur Leukocyte Esterase Urine Glucose Urine Opiates Screen Urine Methadone Screen Ur Barbiturates Screen Ur Tricyclics Screen Ur Amphetamines Screen U Benzodiazepines Scrn Urine Cocaine Screen Ur THC Screen Ethyl Alcohol Last Vital Signs Temp 37.1 C 06/09/23 18:25 Pulse 96 H 06/09/23 18:25 Resp 14 06/09/23 18:25 BP 124/81 06/09/23 18:25 Pulse Ox 100 06/09/23 18:25 Time Spent Time spent with Patient: 40-54 minutes Time was spent: preparing to see the patient(eg.review tests), obtaining and/or reviewing separately otained hiistory, ordering medications,tests, procedures, referring, communicating with other health medicare insurance specialist, indepentently interpreting results, counseling the patient and care coordination
[2023-06-09] MEDS: PHENobarbital 130 MG/ML VIAL IVP ×4 (19:30→20:52)
[2023-06-09] MEDS: Budesonide/Formoterol 160/4.5 6 GM 60 PUFF INH IH (21:08)
[2023-06-09 23:21] LABS: Anion Gap 7.4 mmol/L (3-11); BUN 1 mg/dL (7-18); CO2 27.6 mmol/L (21.0-32.0); CREATININE 0.9 mg/dL (0.55-1.02); Chloride 99 mmol/L (98-107); Glucose 108 mg/dL (74-106); Magnesium 2.5 mg/dL (1.8-2.4); Potassium 3.6 mmol/L (3.5-5.1); Sodium 134 mmol/L (136-145)
[2023-06-10] VITALS: PULSE 81
[2023-06-10 00:15] VITALS: BP 94/59; PULSE 81; RESP 18; TEMP 36; O2SAT 95
[2023-06-10] MEDS: Normal Saline 1,000 ML 150 ML IV (01:00)
[2023-06-10 05:15] VITALS: BP 102/78; PULSE 74; RESP 16; TEMP 36.2; O2SAT 97
[2023-06-10 07:00] VITALS: PULSE 79
[2023-06-10 07:24] LABS: Abs Immature Grans 0.05 10^3/uL (0.0-0.06); Absolute Basophil Count 0.05 10^3/uL (0.0-0.2); Absolute Eosinophil Count 0.11 10^3/uL (0.0-0.7); Absolute Lymphocyte Count 0.98 10^3/uL (1.2-3.4); Basophils % 0.8; Eosinophils % 1.7; HCT 35.6 % (36.0-46.0); HGB 12.1 g/dL (11.2-15.7); Immature Grans % 0.8; Lymphocytes % 15.1; MCH 33.5 pg (27.0-33.0); MCV 99 fL (80-95); MPV 10.4 fL (8.0-11.0); Monocytes % 10.8; Neutrophils % 70.8; Platelet Count 166 10^3/uL (130-400); RBC 3.61 10^6/uL (3.93-5.22); RDW 13.2 % (11.7-14.6); RDW-SD 47.2 fL; WBC 6.49 10^3/uL (4.4-10.8)
[2023-06-10] MEDS: Budesonide/Formoterol 160/4.5 6 GM 60 PUFF INH IH (07:28)
[2023-06-10 07:40] VITALS: BP 122/77; PULSE 81; TEMP 36.2; O2SAT 99
[2023-06-10 07:45] LABS: ALT 79 U/L (14-59); AST 61 U/L (15-37); Albumin 2.6 g/dL (3.4-5.0); Alkaline Phosphatase 81 U/L (46-116); Bilirubin, Total 0.6 mg/dL (0.2-1.0); Magnesium 2.3 mg/dL (1.8-2.4); Total Protein 5.8 g/dL (6.4-8.2)
[2023-06-10 07:55] LABS: Bilirubin, Direct 0.1 mg/dL (0.0-0.2); PHOSPHORUS 3.8 mg/dL (2.6-4.7)
[2023-06-10 09:00] VITALS: BP 119/77; PULSE 52; TEMP 36.2; O2SAT 99
[2023-06-10] MEDS: hydroCHLOROthiazide 12.5 MG TAB PO (09:14)
[2023-06-10] MEDS: Lisinopril 10 MG TAB PO (09:14)
--- NOTE | 2023-06-10 09:30 | INITIAL_ITS ---
Date of service: 06/10/23 Time of Service: 09:30 Care Management Initial Assmt Initial Assessment REASON FOR HOSPITALIZATION:: Alcohol withdrawal PREVIOUS FUNCTIONAL STATUS/SOCIAL/FAMILY SUPPORTS:: Zhane lives in [place], [place] with her 2 grandchildren, ages 8 and 11. She has had custody on and off since they were born and is now their guardian. 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 This allows her to be home during school vacations and summer. She is independent at baseline and does not receive any community services. CURRENT FUNCTIONAL STATUS:: Zhane was sitting up on her bed when CM met with her. She was pleasant and engaged easily with CM. She stated that she expects to be discharged today and that she is feeling 100% better than when she was admitted. Zhane denied the need for any services. ADVANCE DIRECTIVES:: none on file Has patient been provided with info about the portal/API?: Yes Did the patient sign up for the portal?: No CODE STATUS:: Full Code INSURANCE COVERAGE / FINANCIAL ISSUES:: / Medicaid PRIMARY CARE PHYSICIAN:: Femi Cruz POTENTIAL DISCHARGE NEEDS:: follow up with PCP and other community providers PATIENT/FAMILY EDUCATION NEEDS:: Review of discharge instructions, limitations, activity, medications, follow up plan, discuss [employer] Me [employer] TRANSPORTATION:: via private vehicle PLAN:: Zhane will be discharged home with no new services. She will follow up with her PCP and plan of care and transport with a friend/family. PFSH All Active Problems (Updated 06/09/23 @ 19:42 by Dulce Gonsalez NP) Hypertension (Chronic) Hypothyroidism (Chronic) Hyponatremia (Acute) Alcohol withdrawal (Acute) Nausea & vomiting (Acute) Breast mass, right (Chronic) Mass of uterus (Chronic) Elevated liver transaminase level (Acute) Hypomagnesuria (Acute) Hypokalemia due to excessive gastrointestinal loss of potassium (Acute) Post-menopausal bleeding (Acute) Medical History Anxiety Bronchitis Chronic rhinitis Insomnia Intramural uterine fibroid Obesity Smoker Surgical History Biopsy of breast section X 2 Ligation of fallopian tube Social History Smoking/Tobacco Use Status: Current every day Tobacco Type: cigarettes Years smoked: 34 Smoking risk assessment performed?: Yes Alcohol Intake: current Alcohol Intake frequency: 3 or more drinks per day Drug use: Never Substance use type: does not use Housing: house Do you feel safe at home: Yes Do you feel safe in your relationship?: Yes History History Para 2 Hx # Term Pregnancies Multiple births Hx # Pregnancies Ectopic pregnancies AB induced Hx Number of Living Children 2 AB spontaneous
--- NOTE | 2023-06-10 10:13 | W.PM.DS.N ---
Date of service: 06/10/23 Time of Service: 10:14 DS: Diagnosis Discharge Diagnosis (1) Alcohol withdrawal: Status: Acute (2) Nausea & vomiting: Status: Acute (3) Breast mass, right: Status: Chronic (4) Mass of uterus: Status: Chronic (5) Elevated liver transaminase level: Status: Acute (6) Hypomagnesuria: Status: Acute (7) Hypokalemia due to excessive gastrointestinal loss of potassium: Status: Acute (8) Smoker: (9) Anxiety: (10) Hyponatremia: Status: Acute (11) Hypothyroidism: Status: Chronic (12) Hypertension: Status: Chronic Discharge Plan Disposition Patient Disposition: Home Condition: Good Discharge Details Reason For Visit: Alcohol Withdrawal,Abdominal Pain Admit Date/Time: 06/09/23 16:28 Admit Provider: Fransisco Michele Attending Provider: Fransisco Michele Primary Care Provider: Femi Cruz Hospital Course Hospital Course: This is a 57 year old female patient with past medical history of alcoholism, admits to 4 beer/d everyday, who presented to the [facility] ED with complaint of vomiting. No fever, no diarrhea.? She otherwise has no medical history and takes no meds.? She was admitted to the hospital for alcohol withdrawal and was put on CIWA scale w benzodiazepine and banana bag.?The following day she had no abdominal pain, was tolerating oral and solid food. She refused phenobarbitol and requested to go home. She was scoring low on the CIWA scale. She was discharged to home stable with a prescription for potassium as she was low here, with follow up labs recommended in one week and follow up with PCP. She was also give prn ondansetron for nausea, although that had resolved at time of discharge. She was told she should stop drinking alcohol, or at least cut back. Home Meds and New Rx's Prescriptions: New ondansetron 4 mg tablet,disintegrating 4 mg PO Q6H PRNQty: 20 0RF potassium chloride 20 mEq tablet extended release 20 meq PO DAILY Qty: 30 0RF Continued budesonide-formoterol [Symbicort] 160-4.5 mcg/actuation HFA aerosol inhaler 2 puff inhalation BID (DME) Aerochamber MV Spacer See Rx Instructions .Route Qty: 1 0RF Rx Instructions: As directed alprazolam [Xanax] 0.5 MG tablet 0.5 mg PO DAILY albuterol sulfate [ProAir HFA] 8.5 GM HFA aerosol inhaler 2 puff Inhalation Q6H PRN lisinopril-hydrochlorothiazide 10-12.5 mg tablet 1 tab PO DAILY Patient Comments: TAKE ONE TABLET BY MOUTH EVERY DAY Discharge Instructions Instructions: Ondansetron (By mouth), Hypokalemia (ED), Acute Nausea and Vomiting (DC), Alcohol Withdrawal (DC), Alcohol Dependence (DC) Additional Instructions: Follow up with your PCP and as planned for breast mass evaluation. Recommend stopping, or at least decreasing, alcohol intake. Start potassium 20 meq daily. Have potassium and other electrolytes checked in one weeks time. Take ondansetron orally as needed for nausea/vomiting. Stand Alone Forms: Nursing Discharge Form Referrals: Femi Cruz [Primary Care Provider] - 06/28/23 1:20 pm (1-2 weeks - alcohol withdrawal and hypokalemia - started on KCL 20 meq daily with BMP in one week) Activity:: Activity as Tolerated Equipment/Supplies:: No Equipment Needed Diet:: As Tolerated Discharge Orders Discharge Orders: Discharge Order (Routine); Ordered 06/10/23 Ordered By: Dulce Gonsalez Other Ambulatory Orders: Basic Metabolic Panel (Routine) Timeframe: 1 Week Facility: [facility] - Location: Laboratory Outpatient - [facility] Ordered By: Dulce Gonsalez Discharge Data Discharge Date/Time-TO BE ENTERED AT DEPARTURE: 06/10/23 11:48 DS: Summary Time Spent with Patient providing and/or coordinating discharge services: Less than 30 minutes Status at Discharge Functional status at discharge: independent ambulation Overall status at discharge: patient is back to baseline Mental Status: mental status grossly normal Speech and Movement: speech and movement normal Mood: congruent mood Affect: normal affect Exam Const General: cooperative, comfortable, no acute distress, well developed, anxious and ill appearing acutely Nutritional Appearance: well nourished and overweight Orientation: alert and awake HENMT Head: normal to inspection Mouth: mucous membranes dry (dry) Throat: posterior oropharynx normal Eyes General: appearance normal, both eyes and all related structures Resp Effort & Inspection: normal respiratory effort, able to speak in complete sentences and no respiratory distress Auscultation: no rales and no rhonchi Cardio Rate: regular rate Rhythm: regular rhythm Heart Sounds: S1 normal and S2 normal GI Inspection: normal to inspection and obesity Palpation: soft, no hepatosplenomegaly, not firm, no guarding, no masses, not rigid and nontender Percussion: normal to percussion Auscultation: normal bowel sounds Back/Spine/Pelvis Back: no CVA tenderness Skin General skin exam: no rashes or lesions noted Trauma: no lacerations or abrasions Neuro General: patient alert and patient awake Cognition: normal cognition Speech: speech normal Gait: normal gait Extrem General: no pedal edema, no calf tenderness and normal gait Psych Appearance: grossly normal and well kempt Mental Status: mental status grossly normal Speech and Movement: speech and movement normal Mood: congruent mood Affect: normal affect DS: Data Vitals/I&O Vitals and I&O: Vital Signs Temperature 36.2 C L 06/10/23 07:40 Temperature Source Tympanic 06/10/23 07:40 Pulse 81 06/10/23 07:40 Pulse Rhythm Regular 06/10/23 08:00 Pulse 96 H 06/09/23 17:51 Respiratory Rate 16 06/10/23 05:15 Respiratory Effort Normal, Non-Labored 06/10/23 08:00 Respiratory Depth Normal 06/10/23 08:00 Respiratory Pattern Normal 06/10/23 08:00 Blood Pressure 122/77 06/10/23 07:40 Blood Pressure Mean 68 06/09/23 17:51 Blood Pressure Position Sitting 06/09/23 13:12 Pulse Oximetry 99 06/10/23 07:40 Oxygen Delivery Method Room Air 06/10/23 07:40 Oxygen Flow Rate 0 06/10/23 07:40 Pain Level 0 06/10/23 07:40 Intake & Output 06/09/23 06/09/23 06/10/23 11:59 23:59 11:59 Intake Total 120.8462 / 120.8462 Output Total 950 / 950 Balance 120.8462 / 120.8462 1063.2 / 1063.2 Weight 63.503 kg 66 kg Intake: IV 120.8462 / 120.8462 Output: Urine 950 / 950 Other: Urine Color Yellow Light Dulce Urine Appearance Clear Cloudy Urine Odor Normal Voiding Methods Toilet Data Completed and Pending Labs on day of discharge: Labs from last 24 hours 06/10/23 06/10/23 06/09/23 06:30 06:30 22:54 WBC 6.49 RBC 3.61 L Hgb 12.1 D Hct 35.6 L MCV 99 H D MCH 33.5 H MCHC 34.0 RDW 13.2 Plt Count 166 MPV 10.4 Immature Gran % 0.8 Neutrophils % 70.8 Lymphocytes % 15.1 Monocytes % 10.8 Eosinophils % 1.7 Basophils % 0.8 Nucleated RBC % 0.0 Absolute Neutrophils 4.60 Absolute Lymphocytes 0.98 L Absolute Monocytes 0.70 Absolute Eosinophils 0.11 Absolute Basophils 0.05 PT INR APTT Sodium 134 L Potassium 3.6 Chloride 99 Carbon Dioxide 27.6 Anion Gap 7.4 BUN 1 L Creatinine 0.9 Est GFR (CKD-EPI 2020) 75.50 Glucose 108 H Calcium 8.0 L Phosphorus 3.8 Magnesium 2.3 2.5 H Total Bilirubin 0.6 Conjugated Bilirubin 0.1 AST 61 H ALT 79 H Alkaline Phosphatase 81 Troponin I Total Protein 5.8 L Albumin 2.6 L Lipase Procalcitonin TSH Free T4 Urine Color Urine Clarity Urine pH Ur Specific [place] Urine Protein Urine Ketones Urine Blood Urine Nitrite Urine Bilirubin Urine Urobilinogen Ur Leukocyte Esterase Urine Glucose Urine Opiates Screen Urine Methadone Screen Ur Barbiturates Screen Ur Tricyclics Screen Ur Amphetamines Screen U Benzodiazepines Scrn Urine Cocaine Screen Ur THC Screen Ethyl Alcohol 06/09/23 06/09/23 06/09/23 16:28 16:28 14:45 WBC RBC Hgb Hct MCV MCH MCHC RDW Plt Count MPV Immature Gran % Neutrophils % Lymphocytes % Monocytes % Eosinophils % Basophils % Nucleated RBC % Absolute Neutrophils Absolute Lymphocytes Absolute Monocytes Absolute Eosinophils Absolute Basophils PT INR APTT Sodium Potassium Chloride Carbon Dioxide Anion Gap BUN Creatinine Est GFR (CKD-EPI 2020) Glucose Calcium Phosphorus Magnesium Total Bilirubin Conjugated Bilirubin AST ALT Alkaline Phosphatase Troponin I < 50 Total Protein Albumin Lipase Procalcitonin 0.1 TSH Free T4 Urine Color Urine Clarity Urine pH Ur Specific [place] Urine Protein Urine Ketones Urine Blood Urine Nitrite Urine Bilirubin Urine Urobilinogen Ur Leukocyte Esterase Urine Glucose Urine Opiates Screen Negative Urine Methadone Screen Negative Ur Barbiturates Screen Negative Ur Tricyclics Screen Negative Ur Amphetamines Screen Negative U Benzodiazepines Scrn Negative Urine Cocaine Screen Negative Ur THC Screen Negative Ethyl Alcohol 06/09/23 06/09/23 06/09/23 14:45 14:09 14:02 WBC 10.04 RBC 4.29 Hgb 14.3 Hct 40.3 MCV 94 MCH 33.3 H MCHC 35.5 RDW 12.5 Plt Count 191 MPV 10.3 Immature Gran % 0.6 Neutrophils % 79.0 Lymphocytes % 10.6 Monocytes % 9.2 Eosinophils % 0.1 Basophils % 0.5 Nucleated RBC % 0.0 Absolute Neutrophils 7.94 H Absolute Lymphocytes 1.06 L Absolute Monocytes 0.92 H Absolute Eosinophils 0.01 Absolute Basophils 0.05 PT 9.8 INR 1.0 APTT 23.6 Sodium Potassium Chloride Carbon Dioxide Anion Gap BUN Creatinine Est GFR (CKD-EPI 2020) Glucose Calcium Phosphorus Magnesium Total Bilirubin Conjugated Bilirubin AST ALT Alkaline Phosphatase Troponin I Total Protein Albumin Lipase Procalcitonin TSH Free T4 Urine Color Yellow Urine Clarity Clear Urine pH 7.5 Ur Specific [place] 1.015 Urine Protein Negative Urine Ketones Negative Urine Blood Negative Urine Nitrite Negative Urine Bilirubin Negative Urine Urobilinogen 0.2 Ur Leukocyte Esterase Negative Urine Glucose Negative Urine Opiates Screen Urine Methadone Screen Ur Barbiturates Screen Ur Tricyclics Screen Ur Amphetamines Screen U Benzodiazepines Scrn Urine Cocaine Screen Ur THC Screen Ethyl Alcohol 06/09/23 14:02 WBC RBC Hgb Hct MCV MCH MCHC RDW Plt Count MPV Immature Gran % Neutrophils % Lymphocytes % Monocytes % Eosinophils % Basophils % Nucleated RBC % Absolute Neutrophils Absolute Lymphocytes Absolute Monocytes Absolute Eosinophils Absolute Basophils PT INR APTT Sodium 132 L Potassium 3.1 L Chloride 91 L Carbon Dioxide 28.7 Anion Gap 12.3 H BUN 2 L Creatinine 0.8 Est GFR (CKD-EPI 2020) 86.96 Glucose 116 H Calcium 9.2 Phosphorus Magnesium 1.2 L Total Bilirubin 0.5 Conjugated Bilirubin AST 75 H ALT 115 H Alkaline Phosphatase 114 Troponin I < 50 Total Protein 7.7 Albumin 3.6 Lipase 24 Procalcitonin TSH 6.72 H Free T4 0.92 Urine Color Urine Clarity Urine pH Ur Specific [place] Urine Protein Urine Ketones Urine Blood Urine Nitrite Urine Bilirubin Urine Urobilinogen Ur Leukocyte Esterase Urine Glucose Urine Opiates Screen Urine Methadone Screen Ur Barbiturates Screen Ur Tricyclics Screen Ur Amphetamines Screen U Benzodiazepines Scrn Urine Cocaine Screen Ur THC Screen Ethyl Alcohol < 3.0 PFSH All Active Problems (Updated 06/09/23 @ 19:42 by Dulce Gonsalez NP) Hypertension (Chronic) Hypothyroidism (Chronic) Hyponatremia (Acute) Alcohol withdrawal (Acute) Nausea & vomiting (Acute) Breast mass, right (Chronic) Mass of uterus (Chronic) Elevated liver transaminase level (Acute) Hypomagnesuria (Acute) Hypokalemia due to excessive gastrointestinal loss of potassium (Acute) Post-menopausal bleeding (Acute) Medical History Anxiety Bronchitis Chronic rhinitis Insomnia Intramural uterine fibroid Obesity Smoker Surgical History Biopsy of breast section X 2 Ligation of fallopian tube Social History Smoking/Tobacco Use Status: Current every day Tobacco Type: cigarettes Years smoked: 34 Smoking risk assessment performed?: Yes Alcohol Intake: current Alcohol Intake frequency: 3 or more drinks per day Drug use: Never Substance use type: does not use Housing: house Do you feel safe at home: Yes Do you feel safe in your relationship?: Yes History History Para 2 Hx # Term Pregnancies Multiple births Hx # Pregnancies Ectopic pregnancies AB induced Hx Number of Living Children 2 AB spontaneous Time Spent with Patient Time Spent with Patient: 45-69 minutes Time was spent: preparing to see the patient(eg.review tests), ordering medications,tests, procedures, referring, communicating with other health respiratory care technician, indepentently interpreting results, counseling the patient and care coordination
--- NOTE | 2023-06-10 12:29 | PDOC.CMDIS ---
Date of service: 06/10/23 Time of Service: 12:30 LACE Index Scoring Tool Questions: Length of Stay (in days): 1 Was the patient admitted via the E.D.?: Yes Comorbidities: Liver or Renal Disease E.D. Visits: 1 Answers: Total Score: 10 Risk of Readmission: High Risk Care Management Discharge Plan Reason for Hospitalization: nausea and vomiting Discharge Plan: Zhane will be discharged home with no new services. She will follow up with her community providers and plan of care and transport with a friend. Patient/Family Education Needs: Review of discharge instructions, limitations, activity, medications, follow up plan, discuss Ask Me Three
== END 2023-06-10 11:48 | disposition home or self-care (01) | DRG 897 ==
LOC: ER 16:29 → MS 18:24
PROVIDERS: Nurse Practitioner Family; Admitting Provider Internal Medicine; Emergency Provider Emergency Medicine Emergency Medical Services; PCP Physician Assistant; Visit Provider Internal Medicine
DX: F10.239 Alcohol dependence with withdrawal, unspecified (principal); E87.1 Hypo-osmolality and hyponatremia; R11.2 Nausea with vomiting, unspecified; R74.01 Elevation of levels of liver transaminase levels; E87.6 Hypokalemia; F17.210 Nicotine dependence, cigarettes, uncomplicated; F41.9 Anxiety disorder, unspecified; E03.9 Hypothyroidism, unspecified; I10 Essential (primary) hypertension; G47.00 Insomnia, unspecified; N63.10 Unspecified lump in the right breast, unspecified quadrant; N85.9 Noninflammatory disorder of uterus, unspecified; N95.0 Postmenopausal bleeding
CPT/HCPCS: 36415; 74177; 80048; 80053; 80076; 80307; 83690; 84145; 93005; 94640; 96365; 96366; 96368; 96375; 99291; 71260; 80320; 81003; 83735; 84100; 84439; 84443; 84484; 85025; 85610; 85730; 93010; 94664; 99222; 99239; J2060; J2405; J2560; J3490; J7620

== ENCOUNTER → 2023-06-20 02:30 | Outpatient (CLI) | payer MEDICAID, SELFPAY ==
--- NOTE | 2023-06-20 | DI.US_ITS ---
Exam(s) US PELVIS TRANSVAGINAL EXAM: US PELVIS TRANSVAGINAL CLINICAL HISTORY: UTERINE FIBROIDS D25.9 TECHNIQUE: Transabdominal and transvaginal imaging was performed using standard protocol. COMPARISON: CT CT CHEST/ABD/PEL W from 06/09/2023 FINDINGS: A transvaginal exam is somewhat limited. The body fundus of the uterus with suboptimally visualized . The ovaries were not seen transvaginally. UTERUS: Anteverted. 9.1 x 5.4 x 6.8 cm Endometrium: Suboptimally visualized.. No fluid within the endometrial cavity. Myometrium: 1.6 centimeter anterior lower uterine segment fibroid. 3.3 centimeter left anterior fund al fibroid. The midline anterior fibroid seen on CT was not visualized by ultrasound. Cervix: Unremarkable. OVARIES: Right: Cyst or mass: None. Left: Cyst or mass: None. DOPPLER: Color: Symmetric and uniform flow to both ovaries. No hyperemia. CUL-DE-SAC: Free fluid: None. IMPRESSION: Limited exam. The endometrial stripe and a fibroids were not well evaluated on this exam. Unremarkable bilateral ovaries. DATA REPOSITORY:
== END ==
PROVIDERS: PCP Physician Assistant; Visit Provider Physician Assistant
DX: D25.9 Leiomyoma of uterus, unspecified (principal)
CPT/HCPCS: 76830; 76856

== ENCOUNTER 2023-06-20 12:51 | Outpatient (CLI) | payer MEDICAID, SELFPAY ==
[2023-06-20 12:47] LABS: Anion Gap 11.9 mmol/L (3-11); BUN 3 mg/dL (7-18); CO2 26.1 mmol/L (21.0-32.0); CREATININE 0.8 mg/dL (0.55-1.02); Chloride 87 mmol/L (98-107); Estimated GFR 86.96 (mL/min/1.73m2); Glucose 119 mg/dL (74-106); Potassium 3.7 mmol/L (3.5-5.1); Sodium 125 mmol/L (136-145)
== END 2023-06-20 12:52 | disposition home or self-care (01) ==
LOC: LBO 12:51
PROVIDERS: PCP Physician Assistant; Visit Provider Nurse Practitioner Family
DX: E87.6 Hypokalemia (principal); I10 Essential (primary) hypertension
CPT/HCPCS: 36415; 80048

== ENCOUNTER 2023-12-16 11:38 | Outpatient (REF) | payer MEDICAID, SELFPAY ==
[2023-12-16 15:37] LABS: HCT 40.5 % (36.0-46.0); HGB 14.2 g/dL (11.2-15.7); MCH 32.7 pg (27.0-33.0); MCHC 35.1 % (32.0-36.0); MCV 93 fL (80-95); MPV 10.9 fL (8.0-11.0); Platelet Count 324 10^3/uL (130-400); RBC 4.34 10^6/uL (3.93-5.22); RDW 11.4 % (11.7-14.6); RDW-SD 39.5 fL; WBC 7.36 10^3/uL (4.4-10.8)
[2023-12-16 16:10] LABS: ALT 63 U/L (14-59); AST 42 U/L (15-37); Albumin 3.2 g/dL (3.4-5.0); Alkaline Phosphatase 102 U/L (46-116); Anion Gap 9.5 mmol/L (3-11); BUN 3 mg/dL (7-18); Bilirubin, Total 0.4 mg/dL (0.2-1.0); CO2 27.5 mmol/L (21.0-32.0); CREATININE 0.9 mg/dL (0.55-1.02); Calcium 9.1 mg/dL (8.5-10.1); Chloride 92 mmol/L (98-107); Estimated GFR 75.03 (mL/min/1.73m2); FREE T4 0.94 ng/dL (0.76-1.46); Glucose 113 mg/dL (74-106); Potassium 3.9 mmol/L (3.5-5.1); Sodium 129 mmol/L (136-145); TSH 3.65 uIU/mL (0.36-3.74)
== END 2023-12-16 11:39 | disposition home or self-care (01) ==
LOC: NCHCN 11:38
PROVIDERS: PCP Physician Assistant; Visit Provider Physician Assistant
DX: R63.4 Abnormal weight loss (principal); F10.288 Alcohol dependence with other alcohol-induced disorder; K70.10 Alcoholic hepatitis without ascites
CPT/HCPCS: 80053; 85027; 84439; 84443

== ENCOUNTER 2024-03-02 16:27 | Inpatient (IN) | payer MEDICAID, SELFPAY ==
[2024-03-02] VITALS (20 sets, daily range): BP systolic 104–170; BP diastolic 61–89; PULSE 78–92; RESP 8–28; TEMP 36.9–37.4; O2SAT 98–100
--- NOTE | 2024-03-02 18:17 | W.ED.GENAD ---
Discharge Plan Disposition Patient Disposition: Admit to [facility] Condition: Stable Discharge Details Clinical Impression: Hyponatremia, Hypokalemia Primary Care Provider: Femi Cruz ED Provider: Alan Reynolds Home Meds and New Rx's Prescriptions: No Action budesonide-formoterol [Symbicort] 160-4.5 mcg/actuation HFA aerosol inhaler 2 puff inhalation BID (DME) Aerochamber MV Spacer See Rx Instructions .Route Qty: 1 0RF Rx Instructions: As directed albuterol sulfate [Ventolin HFA] 90 mcg/actuation HFA aerosol inhaler 2 puff inhalation QID PRN fluticasone propionate [Flonase Allergy Relief] 50 mcg/actuation spray,suspension 2 spray intranasal DAILY Qty: 16 12RF Rx Instructions: administer into each nostril lisinopril-hydrochlorothiazide 10-12.5 mg tablet 1 tab PO DAILY Patient Comments: TAKE ONE TABLET BY MOUTH EVERY DAY chlordiazepoxide HCl 25 mg capsule 25 mg PO PRN Patient Comments: took today at 0530, 1030, 1530 HPI General Date/Time Provider Initiated Documentation: 03/02/24 17:34. HPI Narrative: 58 year-old female presents to ED today by POV/ambulating with a chief complaint of generalized weakness, no appetite, just feels lousy with onset for the past 3-4 days. Patient feels weak and shaky- took 3 librium today from a past Rx of at-home cessation of alcohol back in October. States that her Ativan is refilled at a pharmacy, miscommunication with triage note. Quality described as generalized weakness, denies any body system being focally affected, no radiation to cough, shortness of breath, near syncope, vomiting, black/bloody stools, fever. Severity is described as severe. Palliating factors include nothing specific. Provoking factors include nothing specific. Events leading up to the incident/Associated Symptoms: Patient states it's not that she can't eat, but just gets nauseous at the thought of eating. Patient not anticoagulated. Related Data Home Medications Medication Instructions Recorded Confirmed budesonide-formoterol HFA 160 2 puff inhalation BID 09/20/22 03/02/24 mcg-4.5 mcg/actuation aerosol inhaler (Symbicort) inhalational spacing device #1 ea 09/20/22 03/02/24 (Aerochamber MV spacer) lisinopril 10 1 tab PO DAILY 06/09/23 03/02/24 mg-hydrochlorothiazide 12.5 mg tablet albuterol sulfate 90 mcg/actuation 2 puff inhalation QID PRN 09/25/23 03/02/24 aerosol inhaler (Ventolin HFA) fluticasone propionate 50 2 spray intranasal DAILY #16 grams 10/10/23 03/02/24 mcg/actuation nasal spray,suspension (Flonase Allergy Relief) chlordiazepoxide HCl 25 mg capsule 25 mg PO PRN 03/02/24 03/02/24 Previous Rx's Medication Instructions Recorded inhalational spacing device #1 ea 09/20/22 (Aerochamber MV spacer) fluticasone propionate 50 2 spray intranasal DAILY #16 grams 10/10/23 mcg/actuation nasal spray,suspension (Flonase Allergy Relief) Allergies Allergy/AdvReac Type Severity Reaction Status Date / Time trazodone Allergy Severe Other (See Unverified 03/02/24 16:38 Comment) erythromycin base AdvReac Severe stomache Unverified 03/02/24 16:38 [Erythromycin Base] pain/nausea diphenhydramine HCl AdvReac Intermediate Jittery Unverified 03/02/24 16:38 [From Tylenol PM] General Stated Complaint: Anxiety KAMILA: 3 Review of Systems All systems reviewed & are unremarkable except as noted in HPI and below Exam Narrative Exam Narrative: GENERAL APPEARANCE: Well-nourished, non-toxic, awake and alert, atraumatic, no acute distress. SKIN: Warm, pink, dry, intact, without rashes/lesions/ulcerations. HEAD: Normocephalic, atraumatic, normal hair distribution for gender/age. EYES: Pupils PERRLA, EOMs intact without nystagmus, normal conjunctiva, no exudates on lids/lashes. ENT: Nares patent, no circumoral cyanosis, no facial swelling NECK: Supple, trachea midline, painless cervical ROM. LUNGS/CHEST: Lungs CTA bilaterally- no rhonchi/rales/wheezes diffusely, non-labored respirations, normal A/P diameter, symmetrical expansion, no chest wall deformity HEART (CV/PV): Regular rate and rhythm without murmur, no peripheral edema, no JVD. ABDOMEN: Soft, non-distended, no guarding, no tenderness. MSK: Normal ROM, no swelling/deformity to bilateral UEs or LEs, moving all extremities without weakness, no cyanosis, spine midline without tenderness, normal curvature. NEURO: Mental Status AAOx4 - alert to person, place, time, events No facial droop, no forehead involvement. Motor: No focal weakness - strength 5/5 in bilateral UEs and LEs, proximal and distal, symmetric. Sensory: sensation intact to light touch globally. Gait normal: patient ambulated without ataxia into ED room. PSYCH: euthymic, cooperative, pleasant, appropriate speech Course Vital Signs Vital signs: Vital Signs Temperature 37.4 C 03/02/24 16:41 Pulse 90 03/02/24 16:41 Respiratory Rate 16 03/02/24 16:41 Blood Pressure 170/89 H 03/02/24 16:41 Pulse Oximetry 100 03/02/24 16:41 Temperature 37.4 C 03/02/24 16:41 Temperature Source Temporal Artery Scan 03/02/24 16:41 Pulse 90 03/02/24 16:41 Respiratory Rate 16 03/02/24 16:41 Respiratory Effort Normal, Non-Labored 03/02/24 16:43 Blood Pressure 170/89 H 03/02/24 16:41 Blood Pressure Position Sitting 03/02/24 16:41 Pulse Oximetry 100 03/02/24 16:41 Oxygen Delivery Method Room Air 03/02/24 16:41 Oxygen Flow Rate 0 03/02/24 16:41 Pain Level 5 03/02/24 16:41 Comment anxiety 03/02/24 16:41 Medical Decision Making This dictation utilizes [id number] dictation software and may contain unedited grammatical errors. 58 y/o F presents to ED today with a chief complaint of generalized weakness, shakey, nauseous at the thought of eating without vomiting, denies fever, denies cough/respiratory symptoms, denies black/bloody stools/abdominal pain. Patient had quit drinking at home back in October with outpatient Librium from her PCP, took 3 today for anxiety but didn't help the current symptoms. Patient denies need for new Ativan Rx. Patients' medical history: Fatigue, asthma, tobacco dependence, history of hypokalemia, alcohol abuse, polyneuropathy, steatosis of liver, COPD, alcoholic hepatitis, hypomagnesemia, hypertension. Family and social history: past heavy ETOH use, past heavy smoking, poor diet & exercise. Pertinent exam findings / vital signs include benign cardiopulmonary exam, no overt signs of severe dehydration, benign abdomen, neuro intact. Differential / pathologies of concern include alcohol withdrawal, biliary colic, gastritis, electrolyte abnormality, dehydration, viral syndrome, sepsis, rhabdomyolysis. Diagnostic studies of: -CBC, CMP, lipase, lactate, procalcitonin, magnesium, urinalysis, COVID/flu/RSV PCR, CRP, liver panel, procalcitonin. -CBC shows WBCs of 16, no anemia -Lactate 2.4, procalcitonin <0.1 do not suspect sepsis, likely dehydration -CRP 0.83 nonspecific -Lipase WNL -CMP shows hyponatremia of 120, Mild hypokalemia 3.2 -Magnesium 1.7 -UA shows no UTI -Covid/Flu/RSV negative -LFTs benign -UDS positive for benzo's, which is expected -CXR pending at time of acceptances with low suspicion for PNA or other pathology, hospitalist will follow on this. Interventions of: -Initially had started 1 L bolus of LR for dehydration, this was stopped with less than 100 mL in and discussed with hospitalist with results of hyponatremia of 120 to start slow normal saline, unlikely in need of hypertonic at this time. He will order repletion of magnesium and potassium. ED Course/Assessment/Plan: 58-year-old female with a history of severe alcohol use disorder presents with shakes and jitters, has had very poor p.o. intake for 3 to 4 days, she does have a hyponatremia of 120 which is admittable, she has no elevation of BUN and normal creatinine which is odd for her presentation, other electrolyte abnormalities deranged to a mild degree of potassium and magnesium, she did have elevated lactate and a white count but I suspect this is hemoconcentration and not sepsis. Consulted with hospitalist Dr. Chavez for admission for hyponatremia which is accepted. -Dr. Chavez accepted for admission @ 1940. Hyponatremia Disposition of Hyponatremia, hypokalemia. Patient verbalized understanding of the plan and return to ED criteria and engaged in shared decision making. Medical Records Medical records reviewed: Yes I reviewed the patient's medical records. Lab Data Lab results reviewed: Yes I reviewed the patient's lab results. Labs: 03/02/24 19:53 Blood Blood Culture - Pending 03/02/24 19:46 Blood Blood Culture - Pending Laboratory Tests Range/Units 03/02/24 03/02/24 03/02/24 06:52 18:30 18:30 WBC (4.4-10.8) 10^3/uL 16.91 H RBC (3.93-5.22) 10^6/uL 4.13 Hgb (11.2-15.7) g/dL 13.7 Hct (36.0-46.0) % 37.7 MCV (80-95) fL 91 MCH (27.0-33.0) pg 33.2 H MCHC (32.0-36.0) % 36.3 H RDW (11.7-14.6) % 13.9 Plt Count (130-400) 10^3/uL 240 MPV (8.0-11.0) fL 9.1 Immature Gran % 0.7 Neutrophils % 80.6 Lymphocytes % 12.5 Monocytes % 4.7 Eosinophils % 1.1 Basophils % 0.4 Nucleated RBC % (0.0-0.3) % 0.0 Absolute Neutrophils (1.2-6.7) 10^3/uL 13.63 H Absolute Lymphocytes (1.2-3.4) 10^3/uL 2.11 Absolute Monocytes (0.1-0.8) 10^3/uL 0.79 Absolute Eosinophils (0.0-0.7) 10^3/uL 0.19 Absolute Basophils (0.0-0.2) 10^3/uL 0.07 VBG Lactate (0.6-1.4) mmol/L 2.4 H* Sodium (136-145) mmol/L 120 L* Potassium (3.5-5.1) mmol/L 3.2 L Chloride (98-107) mmol/L 81 L Carbon Dioxide (21.0-32.0) mmol/L 29.8 Anion Gap (3-11) mmol/L 9.2 BUN (7-18) mg/dL 4 L Creatinine (0.55-1.02) mg/dL 0.8 Est GFR (CKD-EPI 2020) (mL/min/1.73m2) 86.42 Glucose (74-106) mg/dL 109 H Calcium (8.5-10.1) mg/dL 8.6 Magnesium (1.8-2.4) mg/dL 1.7 L Total Bilirubin (0.2-1.0) mg/dL 0.6 0.6 Conjugated Bilirubin (0.0-0.2) mg/dL 0.2 AST (15-37) U/L 34 ALT (14-59) U/L Alkaline Phosphatase (46-116) U/L C-Reactive Protein (<or=0.5) mg/dL Total Protein (6.4-8.2) g/dL Albumin (3.4-5.0) g/dL Lipase (16-77) U/L Procalcitonin ng/mL Urine Color (Yellow) Urine Clarity (Clear) Urine pH (5-8) Ur Specific [place] (1.005-1.025) Urine Protein (Neg-Trace) mg/dL Urine Ketones (Negative) mg/dL Urine Blood (Negative) Urine Nitrite (Negative) Urine Bilirubin (Negative) Urine Urobilinogen (Up to 0.2) mg/dL Ur Leukocyte Esterase (Negative) Urine Glucose (Negative) mg/dL Urine Opiates Screen (Negative) Negative Urine Methadone Screen (Negative) Negative Ur Barbiturates Screen (Negative) Negative Ur Tricyclics Screen (Negative) Negative Ur Amphetamines Screen (Negative) Negative U Benzodiazepines Scrn (Negative) Positive A Urine Cocaine Screen (Negative) Negative Ur THC Screen (Negative) Negative COVID-19 Source SARS-CoV-2 (PCR) (Negative) Influenza Type A (PCR) (Negative) Influenza Type B (PCR) (Negative) RSV (PCR) (Negative) Range/Units 03/02/24 03/02/24 03/02/24 18:30 18:30 18:30 WBC (4.4-10.8) 10^3/uL RBC (3.93-5.22) 10^6/uL Hgb (11.2-15.7) g/dL Hct (36.0-46.0) % MCV (80-95) fL MCH (27.0-33.0) pg MCHC (32.0-36.0) % RDW (11.7-14.6) % Plt Count (130-400) 10^3/uL MPV (8.0-11.0) fL Immature Gran % Neutrophils % Lymphocytes % Monocytes % Eosinophils % Basophils % Nucleated RBC % (0.0-0.3) % Absolute Neutrophils (1.2-6.7) 10^3/uL Absolute Lymphocytes (1.2-3.4) 10^3/uL Absolute Monocytes (0.1-0.8) 10^3/uL Absolute Eosinophils (0.0-0.7) 10^3/uL Absolute Basophils (0.0-0.2) 10^3/uL VBG Lactate (0.6-1.4) mmol/L Sodium (136-145) mmol/L Potassium (3.5-5.1) mmol/L Chloride (98-107) mmol/L Carbon Dioxide (21.0-32.0) mmol/L Anion Gap (3-11) mmol/L BUN (7-18) mg/dL Creatinine (0.55-1.02) mg/dL Est GFR (CKD-EPI 2020) (mL/min/1.73m2) Glucose (74-106) mg/dL Calcium (8.5-10.1) mg/dL Magnesium (1.8-2.4) mg/dL Total Bilirubin (0.2-1.0) mg/dL Conjugated Bilirubin (0.0-0.2) mg/dL AST (15-37) U/L 30 ALT (14-59) U/L 38 39 Alkaline Phosphatase (46-116) U/L 127 H 126 H C-Reactive Protein (<or=0.5) mg/dL 0.83 H Total Protein (6.4-8.2) g/dL 8.0 Albumin (3.4-5.0) g/dL Lipase (16-77) U/L Procalcitonin ng/mL Urine Color (Yellow) Urine Clarity (Clear) Urine pH (5-8) Ur Specific [place] (1.005-1.025) Urine Protein (Neg-Trace) mg/dL Urine Ketones (Negative) mg/dL Urine Blood (Negative) Urine Nitrite (Negative) Urine Bilirubin (Negative) Urine Urobilinogen (Up to 0.2) mg/dL Ur Leukocyte Esterase (Negative) Urine Glucose (Negative) mg/dL Urine Opiates Screen (Negative) Urine Methadone Screen (Negative) Ur Barbiturates Screen (Negative) Ur Tricyclics Screen (Negative) Ur Amphetamines Screen (Negative) U Benzodiazepines Scrn (Negative) Urine Cocaine Screen (Negative) Ur THC Screen (Negative) COVID-19 Source SARS-CoV-2 (PCR) (Negative) Influenza Type A (PCR) (Negative) Influenza Type B (PCR) (Negative) RSV (PCR) (Negative) Range/Units 03/02/24 03/02/24 03/02/24 18:30 18:30 18:52 WBC (4.4-10.8) 10^3/uL RBC (3.93-5.22) 10^6/uL Hgb (11.2-15.7) g/dL Hct (36.0-46.0) % MCV (80-95) fL MCH (27.0-33.0) pg MCHC (32.0-36.0) % RDW (11.7-14.6) % Plt Count (130-400) 10^3/uL MPV (8.0-11.0) fL Immature Gran % Neutrophils % Lymphocytes % Monocytes % Eosinophils % Basophils % Nucleated RBC % (0.0-0.3) % Absolute Neutrophils (1.2-6.7) 10^3/uL Absolute Lymphocytes (1.2-3.4) 10^3/uL Absolute Monocytes (0.1-0.8) 10^3/uL Absolute Eosinophils (0.0-0.7) 10^3/uL Absolute Basophils (0.0-0.2) 10^3/uL VBG Lactate (0.6-1.4) mmol/L Sodium (136-145) mmol/L Potassium (3.5-5.1) mmol/L Chloride (98-107) mmol/L Carbon Dioxide (21.0-32.0) mmol/L Anion Gap (3-11) mmol/L BUN (7-18) mg/dL Creatinine (0.55-1.02) mg/dL Est GFR (CKD-EPI 2020) (mL/min/1.73m2) Glucose (74-106) mg/dL Calcium (8.5-10.1) mg/dL Magnesium (1.8-2.4) mg/dL Total Bilirubin (0.2-1.0) mg/dL Conjugated Bilirubin (0.0-0.2) mg/dL AST (15-37) U/L ALT (14-59) U/L Alkaline Phosphatase (46-116) U/L C-Reactive Protein (<or=0.5) mg/dL Total Protein (6.4-8.2) g/dL 8.0 Albumin (3.4-5.0) g/dL 3.7 3.7 Lipase (16-77) U/L 29 Procalcitonin ng/mL < 0.1 Urine Color (Yellow) Yellow Urine Clarity (Clear) Clear Urine pH (5-8) 6.0 Ur Specific [place] (1.005-1.025) 1.010 Urine Protein (Neg-Trace) mg/dL Negative Urine Ketones (Negative) mg/dL Negative Urine Blood (Negative) Negative Urine Nitrite (Negative) Negative Urine Bilirubin (Negative) Negative Urine Urobilinogen (Up to 0.2) mg/dL 0.2 Ur Leukocyte Esterase (Negative) Negative Urine Glucose (Negative) mg/dL Negative Urine Opiates Screen (Negative) Urine Methadone Screen (Negative) Ur Barbiturates Screen (Negative) Ur Tricyclics Screen (Negative) Ur Amphetamines Screen (Negative) U Benzodiazepines Scrn (Negative) Urine Cocaine Screen (Negative) Ur THC Screen (Negative) COVID-19 Source Nasopharynx SARS-CoV-2 (PCR) (Negative) Negative Influenza Type A (PCR) (Negative) Negative Influenza Type B (PCR) (Negative) Negative RSV (PCR) (Negative) Negative Quality:SDOH Health Related Social Needs: No Data to Display PFSH All Active Problems (Updated 03/02/24 @ 20:00 by Zach Chavez) Alcoholism in remission (Chronic) Leukocytosis (leucocytosis) (Acute) Hypomagnesemia (Acute) Hypokalemia (Acute) Hyponatremia (Acute) Sore mouth (Acute) Oral lesion (Acute) Hypertension (Chronic) Hypothyroidism (Chronic) Breast mass, right (Chronic) Mass of uterus (Chronic) Post-menopausal bleeding (Acute) Medical History Pain in left shoulder Fatigue Exposure to communicable disease Allergic rhinitis Acute upper respiratory infection Headache Asthma Lower abdominal pain Acute pharyngitis Tobacco dependence Candidiasis of skin Pain in right knee Disorder of skin Hypokalemia Alcohol abuse Polyneuropathy Abnormal weight loss Stomatitis Cough Abdominal pain Chronic sinusitis Steatosis of liver COPD (chronic obstructive pulmonary disease) Alcoholic hepatitis Acute sinusitis Uterine leiomyoma Bronchitis Intramural uterine fibroid Smoker Anxiety Insomnia Obesity Chronic rhinitis Surgical History Ligation of fallopian tube section X 2 Biopsy of breast Family History Mother Coronary heart disease Social History Smoking/Tobacco Use Status: Current every day Tobacco Type: cigarettes Years smoked: 34 Smoking risk assessment performed?: Yes Alcohol Intake: former Drug use: Never Substance use type: does not use Details: quit drinking in October Housing: house Do you feel safe at home: Yes Do you feel safe in your relationship?: Yes History History Para 2 Hx # Term Pregnancies Multiple births Hx # Pregnancies Ectopic pregnancies AB induced Hx Number of Living Children 2 AB spontaneous
[2024-03-02 18:41] LABS: Abs Immature Grans 0.12 10^3/uL (0.0-0.06); Absolute Neutrophil Count 13.63 10^3/uL (1.2-6.7); Basophils % 0.4; Eosinophils % 1.1; HCT 37.7 % (36.0-46.0); HGB 13.7 g/dL (11.2-15.7); Immature Grans % 0.7; Lymphocytes % 12.5; MCH 33.2 pg (27.0-33.0); MCHC 36.3 % (32.0-36.0); MCV 91 fL (80-95); MPV 9.1 fL (8.0-11.0); Monocytes % 4.7; Neutrophils % 80.6; Platelet Count 240 10^3/uL (130-400); RBC 4.13 10^6/uL (3.93-5.22); RDW 13.9 % (11.7-14.6); RDW-SD 46.8 fL; WBC 16.91 10^3/uL (4.4-10.8)
[2024-03-02 18:42] LABS: Lactate 2.4 mmol/L (0.6-1.4)
[2024-03-02 18:43] LABS: Absolute Basophil Count 0.07 10^3/uL (0.0-0.2); Absolute Eosinophil Count 0.19 10^3/uL (0.0-0.7); Absolute Lymphocyte Count 2.11 10^3/uL (1.2-3.4); Absolute Monocyte Count 0.79 10^3/uL (0.1-0.8)
[2024-03-02 18:56] LABS: ALT 38 U/L (14-59); AST 34 U/L (15-37); Albumin 3.7 g/dL (3.4-5.0); Alkaline Phosphatase 127 U/L (46-116); Anion Gap 9.2 mmol/L (3-11); BUN 4 mg/dL (7-18); Bilirubin, Total 0.6 mg/dL (0.2-1.0); C-Reactive Protein 0.83 mg/dL (<or=0.5); CO2 29.8 mmol/L (21.0-32.0); CREATININE 0.8 mg/dL (0.55-1.02); Calcium 8.6 mg/dL (8.5-10.1); Chloride 81 mmol/L (98-107); Estimated GFR 86.42 (mL/min/1.73m2); Glucose 109 mg/dL (74-106); Lipase 29 U/L (16-77); Magnesium 1.7 mg/dL (1.8-2.4); Potassium 3.2 mmol/L (3.5-5.1)
[2024-03-02 18:57] LABS: Sodium 120 mmol/L (136-145)
[2024-03-02] MEDS: Lactated Ringers 1,000 ML 1000 ML IV (19:00)
[2024-03-02 19:02] LABS: Bilirubin Negative (Negative); Blood Negative (Negative); Clarity Clear (Clear); Glucose Negative (Negative); Ketones Negative (Negative); Leukocyte Esterase Negative (Negative); Nitrite Negative (Negative); Urobilinogen 0.2 mg/dL (Up to 0.2)
[2024-03-02] MEDS: Ondansetron 4 MG/2 ML VIAL IVP (19:05)
[2024-03-02 19:41] LABS: COVID-19 PCR Negative (Negative); Influenza A PCR Negative (Negative); Influenza B PCR Negative (Negative); RSV PCR Negative (Negative)
[2024-03-02 19:43] LABS: Source Nasopharynx
--- NOTE | 2024-03-02 19:44 | HPE_ITS ---
Date of service: 03/02/24 Time of Service: 19:44 Assessment and Plan Assessment and plan (1) Hyponatremia: Start date: 03/02/24 Status: Acute Assessment and plan: This is a 58-year-old lady presenting with general malaise and found to be hyponatremic. Will treat with IV fluid resuscitation and monitor labs. She is alcoholic having stopped heavy drinking this year though she has occasional beer with increased anxiety recently. She is on chronic diuretics for hypertension which are held for now. She is full code. (2) Pneumonia: Start date: 03/02/24 Status: Acute Assessment and plan: Patient has a cough with expiratory wheeze and inspiratory coarse crackles without focalizing with chest x-ray suggesting perihilar infiltrates. She will be treated for community-acquired pneumonia with Rocephin and doxycycline. He also has leukocytosis but no fever. She is a smoker. Qualifiers: Laterality: bilateral Lung location: unspecified part of lung P neumonia type: due to unspecified organism Qualified Code(s): J18.9 - Pneumonia, unspecified organism (3) Hypokalemia: Start date: 03/02/24 Status: Acute Assessment and plan: On chronic hydrochlorothiazide which will be held. IV repletion and follow-up labs. (4) Hypomagnesemia: Start date: 03/02/24 Status: Acute Assessment and plan: Previous heavier alcohol use with continued intermittent alcohol use and probable nutritional deficits. Replete and follow labs. (5) Alcoholism in remission: Status: Chronic Assessment and plan: Check alcohol level and monitor for withdrawal if positive. Patient states that she has not drank alcohol since November 2023 but recently has had some beer and nonalcoholic beer with increased anxiety. She does have Librium at home but has not taken the last few pills. (6) Hypertension: Status: Chronic Assessment and plan: Elevated with potassium wasting on hydrochlorothiazide. Continue lisinopril at increased dose and consider metoprolol. Hold her hydrochlorothiazide for now. Qualifiers: Hypertension type: primary hypertension Qualified Code(s): I10 - Essential (primary) hypertension (7) COPD (chronic obstructive pulmonary disease): Assessment and plan: Continue long-acting and rescue inhalers. Patient should stop smoking long- term. Qualifiers: COPD type: chronic bronchitis Chronic bronchitis type: mucopurulent Qualified Code(s): J41.1 - Mucopurulent chronic bronchitis (8) Hypothyroidism: Status: Chronic Assessment and plan: Not on treatment with slightly elevated TSH and this to be followed up as outpatient with supplementation through PCP if appropriate. Further testing as needed. Qualifiers: Hypothyroidism type: acquired Qualified Code(s): E03.9 - Hypothyroidism, unspecified (9) Tobacco abuse: Status: Chronic Assessment and plan: Advised complete cessation. History of Present Illness History of Present Illness Chief Complaint: General malaise, anorexia N arrative: This is a 58-year-old female patient who has a history of tobacco use and COPD on inhalers presenting with generalized weakness, anorexia and feeling lousy for the last 3 to 4 days. She has felt tremulous and has been trying to stop alcohol intake quitting in November 2023 but recently drinking occasional clear and nonalcoholic beer. She does have Librium at home and has been not taking the entire prescription returning to some alcohol intake. She does have anxiety associated with her alcoholism and there is mention that she may have Ativan prescribed as well. She has had no fever or chills and does have a chronic cough with her COPD but no change in cough or production of sputum. She has had no GI symptoms. Her symptoms are fairly severe prompting report to the ED for evaluation. In the ED she was found to have lactic acidosis with no elevation in creatinine or evidence of severe dehydration. She also had a low sodium at 120 with a history of mild hyponatremia in the past with measurements back to the fall 2022 as low as 125. This may be associate with her chronic alcohol use. She also had hypokalemia and hypomagnesemia which did prompt repletion IV. Procalcitonin was negative TSH was with free T4 pending. X-ray of the chest did reveal possibility of perihilar pneumonia and she was placed on IV antibiotic therapy for community-acquired pneumonia. She has had no syncope or symptoms to suggest aspiration. Patient WBC was elevated about 17,000 but as stated she has not had fever. She was admitted for IV hydration and repletion of electrolyte abnormalities. Alcohol level is negative and there appears to be a low risk for call withdrawal though this will be watched closely. Patient is a full code. Review of Systems Narrative: 13 point review of systems otherwise unrevealing or stable. PFSH All Active Problems (Updated 03/02/24 @ 22:46 by Zach Chavez) Pneumonia (Acute) Tobacco abuse (Chronic) Alcoholism in remission (Chronic) Leukocytosis (leucocytosis) (Acute) Hypomagnesemia (Acute) Hypokalemia (Acute) Hyponatremia (Acute) Sore mouth (Acute) Oral lesion (Acute) Hypertension (Chronic) Hypothyroidism (Chronic) Breast mass, right (Chronic) Mass of uterus (Chronic) Post-menopausal bleeding (Acute) Medical History Pain in left shoulder Fatigue Exposure to communicable disease Allergic rhinitis Acute upper respiratory infection Headache Asthma Lower abdominal pain Acute pharyngitis Tobacco dependence Candidiasis of skin Pain in right knee Disorder of skin Hypokalemia Alcohol abuse Polyneuropathy Abnormal weight loss Stomatitis Cough Abdominal pain Chronic sinusitis Steatosis of liver COPD (chronic obstructive pulmonary disease) Alcoholic hepatitis Acute sinusitis Uterine leiomyoma Bronchitis Intramural uterine fibroid Smoker Anxiety Insomnia Obesity Chronic rhinitis Surgical History Ligation of fallopian tube section X 2 Biopsy of breast Family History Mother Coronary heart disease Social History Smoking/Tobacco Use Status: Current every day Tobacco Type: cigarettes Years smoked: 34 Smoking risk assessment performed?: Yes Alcohol Intake: former Drug use: Never Substance use type: does not use Details: quit drinking in October Housing: house Do you feel safe at home: Yes Do you feel safe in your relationship?: Yes History History 2 Para 2 Hx # Term Pregnancies Multiple births Hx # Pregnancies Ectopic pregnancies AB induced Hx Number of Living Children 2 AB spontaneous Meds Allergies and Home Medications Allergies Allergy/AdvReac Type Severity Reaction Status Date / Time trazodone Allergy Severe Other (See Unverified 03/02/24 16:38 Comment) erythromycin base AdvReac Severe stomache Unverified 03/02/24 16:38 [Erythromycin Base] pain/nausea diphenhydramine HCl AdvReac Intermediate Jittery Unverified 03/02/24 16:38 [From Tylenol PM] Home Medications Medication Instructions Recorded Confirmed Type budesonide-formoterol HFA 160 2 puff inhalation BID 09/20/22 03/02/24 History mcg-4.5 mcg/actuation aerosol inhaler (Symbicort) inhalational spacing device #1 ea 09/20/22 03/02/24 Rx (Aerochamber MV spacer) lisinopril 10 1 tab PO DAILY 06/09/23 03/02/24 History mg-hydrochlorothiazide 12.5 mg tablet albuterol sulfate 90 mcg/actuation 2 puff inhalation QID PRN 09/25/23 03/02/24 History aerosol inhaler (Ventolin HFA) fluticasone propionate 50 2 spray intranasal DAILY #16 grams 10/10/23 03/02/24 Rx mcg/actuation nasal spray,suspension (Flonase Allergy Relief) chlordiazepoxide HCl 25 mg capsule 25 mg PO PRN 03/02/24 03/02/24 History Exam Narrative Exam Narrative: General: Patient appears older than stated age, moderately obese and in no acute distress. He does have a cough with audible wheezing and slight tachypnea at rest. She is alert and oriented x 3. HEENT: Normocephalic, santiago face with coarsened facial features. Eyes with pupils equal and react light symmetrically, extraocular movement intact and sclera anicteric. Oropharynx with dry mucosa and fair dentition. Neck: Supple without JVD. Back: Stooped posture without CVA tenderness. Lungs: Diffuse coarse crackles without focalizing, increased expiratory phase with expiratory wheeze diffusely. Fair to poor aeration with bronchovesicular breath sounds diffusely. No intercostal retractions. Patient does have a moist cough. Heart: Regular rate and rhythm with no murmurs gallops appreciated. Breast: Exam deferred. Abdomen: Obese contour, soft and nontender to palpation with no palpable hepatosplenomegaly. Bowel sounds positive all quadrants. Genitalia/rectal: Exam deferred. Skin: Santiago color especially over the face with coughing, otherwise normal color, warm and dry Extremities: Without clubbing or cyanosis. Trace nonpitting edema lower extremities with obesity. Good capillary refill. Neuro: Cranial nerves II through XII gross intact, no focalizing motor deficits or tremor. Psych: Slightly anxious with depressed mood. No abnormal thought processes. Remote and recent memory grossly intact. Results Imaging Imaging Studies: Exam: XR Chest Exam date and time: 03/02/2024 8:45 PM Age: 58 years old Clinical indication: Other: Infection search TECHNIQUE: Imaging protocol: Radiologic exam of the chest. Views: 2 views. COMPARISON: CT CHEST/ABD/PEL W 06/09/2023 3:00 PM FINDINGS: Lungs: Moderate hyperexpansion and hyperlucency with diaphragmatic flattening suggesting COPD. Mild central vascular congestion. Bilateral peribronchial thickening and perihilar stranding/haze, favor changes of bronchitis and mild perihilar subsegmental atelectasis. Mild perihilar infiltrates not excluded. Pleural spaces: No pleural effusion. No pneumothorax. Heart/Mediastinum: Heart size normal. No tracheal/mediastinal shift. Bones/joints: No acute osseous abnormalities are identified. IMPRESSION: 1. Peribronchial thickening and perihilar stranding/haziness, favor changes of bronchiolitis and perihilar subsegmental atelectasis although cannot exclude perihilar infiltrates. 2. Underlying changes of COPD. Labs 03/02/24 18:30 03/02/24 18:30 Labs: Laboratory Results - last 24 hr 03/02/24 03/02/24 18:30 18:52 WBC 16.91 H RBC 4.13 Hgb 13.7 Hct 37.7 MCV 91 MCH 33.2 H MCHC 36.3 H RDW 13.9 Plt Count 240 MPV 9.1 Immature Gran % 0.7 Neutrophils % 80.6 Lymphocytes % 12.5 Monocytes % 4.7 Eosinophils % 1.1 Basophils % 0.4 Nucleated RBC % 0.0 Absolute Neutrophils 13.63 H Absolute Lymphocytes 2.11 Absolute Monocytes 0.79 Absolute Eosinophils 0.19 Absolute Basophils 0.07 VBG Lactate 2.4 H* Sodium 120 L* Potassium 3.2 L Chloride 81 L Carbon Dioxide 29.8 Anion Gap 9.2 BUN 4 L Creatinine 0.8 Est GFR (CKD-EPI 2020) 86.42 Glucose 109 H Calcium 8.6 Magnesium 1.7 L Total Bilirubin 0.6 AST 34 ALT 38 Alkaline Phosphatase 127 H C-Reactive Protein 0.83 H Total Protein 8.0 Albumin 3.7 Lipase 29 Urine Color Yellow Urine Clarity Clear Urine pH 6.0 Ur Specific [place] 1.010 Urine Protein Negative Urine Ketones Negative Urine Blood Negative Urine Nitrite Negative Urine Bilirubin Negative Urine Urobilinogen 0.2 Ur Leukocyte Esterase Negative Urine Glucose Negative COVID-19 Source Nasopharynx SARS-CoV-2 (PCR) Negative Influenza Type A (PCR) Negative Influenza Type B (PCR) Negative RSV (PCR) Negative Last Vital Signs Temp 37.4 C 03/02/24 16:41 Pulse 90 03/02/24 16:41 Resp 16 03/02/24 16:41 BP 170/89 H 03/02/24 16:41 Pulse Ox 100 03/02/24 16:41 Time Spent Time spent with Patient: >75 minutes Time was spent: preparing to see the patient(eg.review tests), obtaining and/or reviewing separately otained hiistory, ordering medications,tests, procedures, indepentently interpreting results, counseling the patient and care coordination
[2024-03-02 19:46] LABS: ALT 39 U/L (14-59); AST 30 U/L (15-37); Albumin 3.7 g/dL (3.4-5.0); Alkaline Phosphatase 126 U/L (46-116); Bilirubin, Direct 0.2 mg/dL (0.0-0.2); Bilirubin, Total 0.6 mg/dL (0.2-1.0)
[2024-03-02 20:07] LABS: Procalcitonin < 0.1 ng/mL
[2024-03-02 20:10] LABS: *AMPHETAMINES SCREEN URINE Negative (Negative); *BARBITURATES SCREEN URINE Negative (Negative); *BENZODIAZEPINES SCREEN URINE Positive (Negative); Cannabinoids THC Negative (Negative); Cocaine Screen,Urine Negative (Negative); METHADONE URINE SCREEN Negative (Negative); OPIATES URINE SCREEN Negative (Negative)
[2024-03-02 20:11] LABS: Tricyclic Antidepressants Negative (Negative)
[2024-03-02] MEDS: MAGNESIUM SULFATE 2 GM/50 ML BAG IVINF (20:40)
[2024-03-02] MEDS: POTASSIUM CHLORIDE 20 MEQ/100 ML BAG 50 MEQ IVINF ×2 (20:45→23:02)
--- NOTE | 2024-03-02 20:47 | DI.RAD_ITS ---
Exam(s) XR CHEST 2V PA LATERAL EXAM: XR CHEST 2V PA LATERAL CLINICAL HISTORY: infection search TECHNIQUE: 2D digital imaging was performed. Two views. COMPARISON: CR XR CHEST 2V PA LATERAL from 03/05/[address] CHEST/ABD/PEL W from 06/09/2023 FINDINGS: HEART: Normal size. Aorta: Not dilated. PULMONARY VASCULATURE: Normal. LUNGS: Fibrotic changes. Mild peribronchial thickening could indicate bronchiolitis. No focal area of consolidation. PLEURAL SPACE: No pleural effusion or pneumothorax. BONE:Unremarkable for age. Soft tissues: Unremarkable. IMPRESSION: Fibrotic changes. Superimposed bronchial thickening could indicate bronchiolitis. DATA REPOSITORY: RADIATION DOSE DELIVERED:
[2024-03-02] MEDS: Enoxaparin 40 MG/0.4 ML SYR SC (20:57)
--- NOTE | 2024-03-02 21:22 | DI.VRAD_ITS ---
PROCEDURE INFORMATION: Exam: XR Chest Exam date and time: 03/02/2024 8:45 PM Age: 58 years old Clinical indication: Other: Infection search TECHNIQUE: Imaging protocol: Radiologic exam of the chest. Views: 2 views. COMPARISON: CT CHEST/ABD/PEL W 06/09/2023 3:00 PM FINDINGS: Lungs: Moderate hyperexpansion and hyperlucency with diaphragmatic flattening suggesting COPD. Mild central vascular congestion. Bilateral peribronchial thickening and perihilar stranding/haze, favor changes of bronchitis and mild perihilar subsegmental atelectasis. Mild perihilar infiltrates not excluded. Pleural spaces: No pleural effusion. No pneumothorax. Heart/Mediastinum: Heart size normal. No tracheal/mediastinal shift. Bones/joints: No acute osseous abnormalities are identified. IMPRESSION: 1. Peribronchial thickening and perihilar stranding/haziness, favor changes of bronchiolitis and perihilar subsegmental atelectasis although cannot exclude perihilar infiltrates. 2. Underlying changes of COPD. Dictated and Authenticated by: Alexander Mesa MD. Ordering:NITISH Phillips MD
[2024-03-02 22:03] LABS: ETHANOL BLOOD < 3.0 mg/dL (<10)
[2024-03-02 22:15] LABS: TSH 6.16 uIU/Ml (0.36-3.74)
[2024-03-02] MEDS: Normal Saline 1,000 ML 150 ML IV (23:02)
[2024-03-02] MEDS: Lisinopril 10 MG TAB 20 MG PO (23:03)
[2024-03-02] MEDS: Albuterol 2.5 MG/3 ML INH SOLN VIAL UPD (23:07)
[2024-03-03] MEDS: DOXYCYCLINE 100 MG in Normal Saline 100 ML IVPB (00:25)
[2024-03-03] MEDS: cefTRIAXone 1 GM/50 ML BAG IVPB (00:39)
[2024-03-03 03:21] VITALS: BP 95/70; PULSE 79; RESP 19; TEMP 35.6; O2SAT 95
[2024-03-03 06:41] LABS: HCT 37.7 % (36.0-46.0); HGB 13.4 g/dL (11.2-15.7); MCH 33.1 pg (27.0-33.0); MCHC 35.5 % (32.0-36.0); MCV 93 fL (80-95); MPV 9.5 fL (8.0-11.0); Platelet Count 235 10^3/uL (130-400); RBC 4.05 10^6/uL (3.93-5.22); RDW 14.3 % (11.7-14.6); RDW-SD 48.6 fL; WBC 8.74 10^3/uL (4.4-10.8)
[2024-03-03 06:52] LABS: Prothrombin Time 10.4 sec (9.1-11.1)
[2024-03-03 07:10] LABS: ALT 40 U/L (14-59); AST 44 U/L (15-37); Albumin 2.9 g/dL (3.4-5.0); Alkaline Phosphatase 118 U/L (46-116); Anion Gap 7.4 mmol/L (3-11); BUN 5 mg/dL (7-18); Bilirubin, Total 0.4 mg/dL (0.2-1.0); CO2 28.6 mmol/L (21.0-32.0); CREATININE 0.8 mg/dL (0.55-1.02); Calcium 8.1 mg/dL (8.5-10.1); Chloride 95 mmol/L (98-107); Estimated GFR 86.42 (mL/min/1.73m2); Glucose 104 mg/dL (74-106); Magnesium 2.3 mg/dL (1.8-2.4); Potassium 3.9 mmol/L (3.5-5.1); Sodium 131 mmol/L (136-145); Total Protein 6.8 g/dL (6.4-8.2)
[2024-03-03 07:41] VITALS: BP 98/65; PULSE 78; RESP 20; TEMP 36.8; O2SAT 95
--- NOTE | 2024-03-03 08:18 | PDOC.CMIN ---
Documented by User: Enid Padilla 03/03/24 08:20 Date of service: 03/03/24 Time of Service: 08:18 PFSH All Active Problems (Updated 04/01/24 @ 00:08 by RAJESH ELDER) Tobacco abuse (Chronic) Alcoholism in remission (Chronic) Leukocytosis (leucocytosis) (Acute) Hyponatremia (Acute) Sore mouth (Acute) Oral lesion (Acute) Hypertension (Chronic) Hypothyroidism (Chronic) Breast mass, right (Chronic) Mass of uterus (Chronic) Post-menopausal bleeding (Acute) Medical History Pain in left shoulder Fatigue Exposure to communicable disease Allergic rhinitis Acute upper respiratory infection Headache Asthma Lower abdominal pain Acute pharyngitis Tobacco dependence Candidiasis of skin Pain in right knee Disorder of skin Hypokalemia Alcohol abuse Polyneuropathy Abnormal weight loss Stomatitis Cough Abdominal pain Chronic sinusitis Steatosis of liver COPD (chronic obstructive pulmonary disease) Alcoholic hepatitis Acute sinusitis Uterine leiomyoma Bronchitis Intramural uterine fibroid Smoker Anxiety Insomnia Obesity Chronic rhinitis Surgical History Ligation of fallopian tube section X 2 Biopsy of breast Family History Mother Coronary heart disease Social History Smoking/Tobacco Use Status: Current every day Tobacco Type: cigarettes Years smoked: 34 Smoking risk assessment performed?: Yes Alcohol Intake: former Drug use: Never Substance use type: does not use Details: quit drinking in October Housing: house Do you feel safe at home: Yes Do you feel safe in your relationship?: Yes History History Para 2 Hx # Term Pregnancies Multiple births Hx # Pregnancies Ectopic pregnancies AB induced Hx Number of Living Children 2 AB spontaneous SDOH(Care Management) Screening Will the Patient Participate in the Screening?: Declined to provide Documented by User: Mary Browning 08/27/24 17:43 PFSH All Active Problems (Updated 04/01/24 @ 00:08 by RAJESH ELDER) Tobacco abuse (Chronic) Alcoholism in remission (Chronic) Leukocytosis (leucocytosis) (Acute) Hyponatremia (Acute) Sore mouth (Acute) Oral lesion (Acute) Hypertension (Chronic) Hypothyroidism (Chronic) Breast mass, right (Chronic) Mass of uterus (Chronic) Post-menopausal bleeding (Acute) Medical History Pain in left shoulder Fatigue Exposure to communicable disease Allergic rhinitis Acute upper respiratory infection Headache Asthma Lower abdominal pain Acute pharyngitis Tobacco dependence Candidiasis of skin Pain in right knee Disorder of skin Hypokalemia Alcohol abuse Polyneuropathy Abnormal weight loss Stomatitis Cough Abdominal pain Chronic sinusitis Steatosis of liver COPD (chronic obstructive pulmonary disease) Alcoholic hepatitis Acute sinusitis Uterine leiomyoma Bronchitis Intramural uterine fibroid Smoker Anxiety Insomnia Obesity Chronic rhinitis Surgical History Ligation of fallopian tube section X 2 Biopsy of breast Family History Mother Coronary heart disease Social History Smoking/Tobacco Use Status: Current every day Tobacco Type: cigarettes Years smoked: 34 Smoking risk assessment performed?: Yes Alcohol Intake: former Drug use: Never Substance use type: does not use Details: quit drinking in October Housing: house Do you feel safe at home: Yes Do you feel safe in your relationship?: Yes History History Para 2 Hx # Term Pregnancies Multiple births Hx # Pregnancies Ectopic pregnancies AB induced Hx Number of Living Children 2 AB spontaneous
[2024-03-03 09:15] VITALS: BP 98/78
[2024-03-03] MEDS: Budesonide/Formoterol 160/4.5 6 GM 60 PUFF INH IH (09:23)
--- NOTE | 2024-03-03 09:28 | W.NUTRFU ---
Date of service: 03/03/24 Time of Service: 09:29 Nutrition Note NOTE: Ms. Palacio presents with hyponatremia. Her BMI is 28.1kg/m2 consistent with overweight. Her weight has been fairly stable over the years. She has alcoholism which is in remission. She may benefit from at minimum a mulitvitamin with minerals. Will continue to monitor PO intake and weight. Will adjust nutrition care plan accordingly. Time Spent in Nutritional Counseling and Treatment: 0
[2024-03-03] MEDS: Normal Saline Flush 10 ML SYR IVP (10:21)
[2024-03-03] MEDS: Albuterol 2.5 MG/3 ML INH SOLN VIAL UPD (10:58)
[2024-03-03 11:05] VITALS: BP 91/60; PULSE 79; RESP 18; TEMP 36.2; O2SAT 100
--- NOTE | 2024-03-03 11:37 | DSE_ITS ---
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 (6) Hypertension: Status: Chronic (7) COPD (chronic obstructive pulmonary disease): (8) Hypothyroidism: Status: Chronic (9) Tobacco abuse: Status: Chronic Discharge Plan Disposition Patient Disposition: Home Condition: Stable Discharge Details Reason For Visit: hypoatrremia,hypomagnesemia,hypokalemia,leukocytos Admit Date/Time: 03/02/24 19:52 Admit Provider: Zach Chavez Attending Provider: Zach Chavez Primary Care Provider: Femi Cruz Hospital Course Hospital Course: 58-year-old female patient history of tobacco use presents to the emergency department with malaise workup showed hyponatremia with a sodium of 120 also found to have a pneumonia. She was started on treatment for community-acquired pneumonia with ceftriaxone and Doxy she had no oxygen requirements. She received IV fluid resuscitation her hydrochlorothiazide was placed on hold and has been discontinued at discharge. Sodium did improve from 120-131 she had no oxygen requirements and was feeling much improved. She was oxygenating in the high 90s on room air. Blood pressure was 90-100 systolic but she was double dosed on her lisinopril. She was asymptomatic with this blood pressure with no reports of dizziness chest pain or shortness of breath. She is discharged to home on augmentin to complete her course. she should follow up with pcp for lab recheck. discussed with Dr Michele Home Meds and New Rx's Prescriptions: New amoxicillin-pot clavulanate 875-125 mg tablet 1 tab PO BID Qty: 10 0RF lisinopril 10 mg tablet 10 mg PO DAILY Qty: 30 0RF Continued budesonide-formoterol [Symbicort] 160-4.5 mcg/actuation HFA aerosol inhaler 2 puff inhalation BID (DME) Aerochamber MV Spacer See Rx Instructions .Route Qty: 1 0RF Rx Instructions: As directed albuterol sulfate [Ventolin HFA] 90 mcg/actuation HFA aerosol inhaler 2 puff inhalation QID PRN fluticasone propionate [Flonase Allergy Relief] 50 mcg/actuation spray,suspension 2 spray intranasal DAILY Qty: 16 12RF Rx Instructions: administer into each nostril chlordiazepoxide HCl 25 mg capsule 25 mg PO PRN Patient Comments: took today at 0530, 1030, 1530 Discontinued lisinopril-hydrochlorothiazide 10-12.5 mg tablet 1 tab PO DAILY Patient Comments: TAKE ONE TABLET BY MOUTH EVERY DAY Discharge Instructions Instructions: Community Acquired Pneumonia (DC) Additional Instructions: take all medications as prescribed. Stand Alone Forms: Nursing Discharge Form Referrals: Femi Cruz [Primary Care Provider] - 03/12/24 11:40 am Activity:: Activity as Tolerated Equipment/Supplies:: No Equipment Needed Diet:: As Tolerated Discharge Orders Discharge Orders: Discharge Order (Routine); Ordered 03/03/24 Ordered By: Luanne To Discharge Data Discharge Date/Time-TO BE ENTERED AT DEPARTURE: 03/03/24 12:59 DS: Summary Time Spent with Patient providing and/or coordinating discharge services: Greater than 30 minutes Status at Discharge Functional status at discharge: independent ambulation Overall status at discharge: patient is back to baseline Mental Status: mental status grossly normal Speech and Movement: speech and movement normal Mood: congruent mood Affect: normal affect Quality:SDOH Health Related Social Needs: No Data to Display Exam Const General: cooperative, healthy appearing and no acute distress HENMT Head: normal to inspection Mouth: oral mucosae normal Eyes General: appearance normal, both eyes and all related structures Neck Neck: normal visual inspection Resp Effort & Inspection: normal respiratory effort and able to speak in complete sentences Cardio Rate: regular rate Skin General skin exam: no rashes or lesions noted Neuro General: patient alert, patient awake and patient oriented x3 Motor: muscle tone normal throughout Extrem General: capillary refill normal Psych Appearance: grossly normal Mental Status: mental status grossly normal Speech and Movement: speech and movement normal Mood: congruent mood Affect: normal affect DS: Data Vitals/I&O Vitals and I&O: Vital Signs Temperature 36.2 C L 03/03/24 11:05 Temperature Source Tympanic 03/03/24 11:05 Pulse 79 03/03/24 11:05 Pulse Rhythm Regular 03/03/24 09:17 Pulse 92 H 03/02/24 21:50 Respiratory Rate 18 03/03/24 11:05 Respiratory Effort Normal, Non-Labored 03/03/24 09:17 Respiratory Depth Normal 03/03/24 09:17 Respiratory Pattern Normal 03/03/24 09:17 Blood Pressure 91/60 L 03/03/24 11:05 Blood Pressure Mean 77 03/02/24 21:40 Blood Pressure Position Sitting 03/02/24 16:41 Pulse Oximetry 100 03/03/24 11:05 Oxygen Delivery Method Room Air 03/03/24 07:41 Oxygen Flow Rate 0 03/03/24 07:41 Pain Level 0 03/03/24 11:05 Comment pT has a breathing treat on at this time when O2 was checked. Manual BP 90/60. 03/03/24 11:05 Intake & Output 03/02/24 03/02/24 03/03/24 11:59 23:59 11:59 Intake Total 150 / 150 1300 / 1300 Output Total 800 / 800 400 / 400 Balance -650 / -650 900 / 900 Weight 69.445 kg 68.4 kg Intake: IV 150 / 150 1300 / 1300 Output: Urine 800 / 800 400 / 400 Other: Urine Color Pale Pale Yellow Yellow Urine Appearance Clear Clear Urine Odor Normal Voiding Methods Toilet Toilet Data Completed and Pending Labs on day of discharge: Labs from last 24 hours 03/03/24 03/02/24 03/02/24 05:47 18:52 18:30 WBC 8.74 RBC 4.05 Hgb 13.4 Hct 37.7 MCV 93 MCH 33.1 H MCHC 35.5 RDW 14.3 Plt Count 235 MPV 9.5 Immature Gran % Neutrophils % Lymphocytes % Monocytes % Eosinophils % Basophils % Nucleated RBC % Absolute Neutrophils Absolute Lymphocytes Absolute Monocytes Absolute Eosinophils Absolute Basophils PT 10.4 INR 1.0 VBG Lactate Sodium 131 L D Potassium 3.9 Chloride 95 L Carbon Dioxide 28.6 Anion Gap 7.4 BUN 5 L Creatinine 0.8 Est GFR (CKD-EPI 2020) 86.42 Glucose 104 Calcium 8.1 L Magnesium 2.3 Total Bilirubin 0.4 Conjugated Bilirubin AST 44 H ALT 40 Alkaline Phosphatase 118 H C-Reactive Protein Total Protein 6.8 Albumin 2.9 L 3.7 Lipase 29 Procalcitonin < 0.1 TSH 6.16 H Urine Color Yellow Urine Clarity Clear Urine pH 6.0 Ur Specific [place] 1.010 Urine Protein Negative Urine Ketones Negative Urine Blood Negative Urine Nitrite Negative Urine Bilirubin Negative Urine Urobilinogen 0.2 Ur Leukocyte Esterase Negative Urine Glucose Negative Urine Opiates Screen Urine Methadone Screen Ur Barbiturates Screen Ur Tricyclics Screen Ur Amphetamines Screen U Benzodiazepines Scrn Urine Cocaine Screen Ur THC Screen Ethyl Alcohol < 3.0 COVID-19 Source Nasopharynx SARS-CoV-2 (PCR) Negative Influenza Type A (PCR) Negative Influenza Type B (PCR) Negative RSV (PCR) Negative 03/02/24 03/02/24 03/02/24 18:30 18:30 18:30 WBC RBC Hgb Hct MCV MCH MCHC RDW Plt Count MPV Immature Gran % Neutrophils % Lymphocytes % Monocytes % Eosinophils % Basophils % Nucleated RBC % Absolute Neutrophils Absolute Lymphocytes Absolute Monocytes Absolute Eosinophils Absolute Basophils PT INR VBG Lactate Sodium Potassium Chloride Carbon Dioxide Anion Gap BUN Creatinine Est GFR (CKD-EPI 2020) Glucose Calcium Magnesium Total Bilirubin Conjugated Bilirubin AST ALT 39 Alkaline Phosphatase 126 H 127 H C-Reactive Protein 0.83 H Total Protein 8.0 8.0 Albumin 3.7 Lipase Procalcitonin TSH Urine Color Urine Clarity Urine pH Ur Specific [place] Urine Protein Urine Ketones Urine Blood Urine Nitrite Urine Bilirubin Urine Urobilinogen Ur Leukocyte Esterase Urine Glucose Urine Opiates Screen Urine Methadone Screen Ur Barbiturates Screen Ur Tricyclics Screen Ur Amphetamines Screen U Benzodiazepines Scrn Urine Cocaine Screen Ur THC Screen Ethyl Alcohol COVID-19 Source SARS-CoV-2 (PCR) Influenza Type A (PCR) Influenza Type B (PCR) RSV (PCR) 03/02/24 03/02/24 03/02/24 18:30 18:30 18:30 WBC 16.91 H RBC 4.13 Hgb 13.7 Hct 37.7 MCV 91 MCH 33.2 H MCHC 36.3 H RDW 13.9 Plt Count 240 MPV 9.1 Immature Gran % 0.7 Neutrophils % 80.6 Lymphocytes % 12.5 Monocytes % 4.7 Eosinophils % 1.1 Basophils % 0.4 Nucleated RBC % 0.0 Absolute Neutrophils 13.63 H Absolute Lymphocytes 2.11 Absolute Monocytes 0.79 Absolute Eosinophils 0.19 Absolute Basophils 0.07 PT INR VBG Lactate 2.4 H* Sodium 120 L* Potassium 3.2 L Chloride 81 L Carbon Dioxide 29.8 Anion Gap 9.2 BUN 4 L Creatinine 0.8 Est GFR (CKD-EPI 2020) 86.42 Glucose 109 H Calcium 8.6 Magnesium 1.7 L Total Bilirubin 0.6 0.6 Conjugated Bilirubin 0.2 AST 30 34 ALT 38 Alkaline Phosphatase C-Reactive Protein Total Protein Albumin Lipase Procalcitonin TSH Urine Color Urine Clarity Urine pH Ur Specific [place] Urine Protein Urine Ketones Urine Blood Urine Nitrite Urine Bilirubin Urine Urobilinogen Ur Leukocyte Esterase Urine Glucose Urine Opiates Screen Urine Methadone Screen Ur Barbiturates Screen Ur Tricyclics Screen Ur Amphetamines Screen U Benzodiazepines Scrn Urine Cocaine Screen Ur THC Screen Ethyl Alcohol COVID-19 Source SARS-CoV-2 (PCR) Influenza Type A (PCR) Influenza Type B (PCR) RSV (PCR) 03/02/24 06:52 WBC RBC Hgb Hct MCV MCH MCHC RDW Plt Count MPV Immature Gran % Neutrophils % Lymphocytes % Monocytes % Eosinophils % Basophils % Nucleated RBC % Absolute Neutrophils Absolute Lymphocytes Absolute Monocytes Absolute Eosinophils Absolute Basophils PT INR VBG Lactate Sodium Potassium Chloride Carbon Dioxide Anion Gap BUN Creatinine Est GFR (CKD-EPI 2020) Glucose Calcium Magnesium Total Bilirubin Conjugated Bilirubin AST ALT Alkaline Phosphatase C-Reactive Protein Total Protein Albumin Lipase Procalcitonin TSH Urine Color Urine Clarity Urine pH Ur Specific [place] Urine Protein Urine Ketones Urine Blood Urine Nitrite Urine Bilirubin Urine Urobilinogen Ur Leukocyte Esterase Urine Glucose Urine Opiates Screen Negative Urine Methadone Screen Negative Ur Barbiturates Screen Negative Ur Tricyclics Screen Negative Ur Amphetamines Screen Negative U Benzodiazepines Scrn Positive A Urine Cocaine Screen Negative Ur THC Screen Negative Ethyl Alcohol COVID-19 Source SARS-CoV-2 (PCR) Influenza Type A (PCR) Influenza Type B (PCR) RSV (PCR) 03/02/24 19:53 Blood Blood Culture - Pending 03/02/24 19:46 Blood Blood Culture - Pending Preliminary micro results at discharge 03/02/24 19:53 Blood Culture - Pending Blood 03/02/24 19:46 Blood Culture - Pending Blood PFSH All Active Problems (Updated 03/04/24 @ 00:09 by RAJESH ELDER) Pneumonia (Acute) Tobacco abuse (Chronic) Alcoholism in remission (Chronic) Leukocytosis (leucocytosis) (Acute) Hypomagnesemia (Acute) Hypokalemia (Acute) Hyponatremia (Acute) Sore mouth (Acute) Oral lesion (Acute) Hypertension (Chronic) Hypothyroidism (Chronic) Breast mass, right (Chronic) Mass of uterus (Chronic) Post-menopausal bleeding (Acute) Medical History Pain in left shoulder Fatigue Exposure to communicable disease Allergic rhinitis Acute upper respiratory infection Headache Asthma Lower abdominal pain Acute pharyngitis Tobacco dependence Candidiasis of skin Pain in right knee Disorder of skin Hypokalemia Alcohol abuse Polyneuropathy Abnormal weight loss Stomatitis Cough Abdominal pain Chronic sinusitis Steatosis of liver COPD (chronic obstructive pulmonary disease) Alcoholic hepatitis Acute sinusitis Uterine leiomyoma Bronchitis Intramural uterine fibroid Smoker Anxiety Insomnia Obesity Chronic rhinitis Surgical History Ligation of fallopian tube section X 2 Biopsy of breast Family History Mother Coronary heart disease Social History Smoking/Tobacco Use Status: Current every day Tobacco Type: cigarettes Years smoked: 34 Smoking risk assessment performed?: Yes Alcohol Intake: former Drug use: Never Substance use type: does not use Details: quit drinking in October Housing: house Do you feel safe at home: Yes Do you feel safe in your relationship?: Yes History History Para 2 Hx # Term Pregnancies Multiple births Hx # Pregnancies Ectopic pregnancies AB induced Hx Number of Living Children 2 AB spontaneous Time Spent with Patient Time Spent with Patient: <45 minutes Time was spent: preparing to see the patient(eg.review tests), obtaining and/or reviewing separately otained hiistory, ordering medications,tests, procedures, indepentently interpreting results and counseling the patient
== END 2024-03-03 12:59 | disposition home or self-care (01) | DRG 194 ==
LOC: ER 20:50 → MS 22:10
PROVIDERS: Admitting Provider Family Medicine; Emergency Provider Physician Assistant; PCP Physician Assistant; Visit Provider Family Medicine
DX: J18.9 Pneumonia, unspecified organism (principal); E87.1 Hypo-osmolality and hyponatremia; E87.20 Acidosis, unspecified; E83.42 Hypomagnesemia; E87.6 Hypokalemia; I10 Essential (primary) hypertension; F10.21 Alcohol dependence, in remission; J41.1 Mucopurulent chronic bronchitis; E03.9 Hypothyroidism, unspecified; F17.210 Nicotine dependence, cigarettes, uncomplicated; R53.81 Other malaise; R63.0 Anorexia; F41.9 Anxiety disorder, unspecified; E66.9 Obesity, unspecified; Z68.28 Body mass index [BMI] 28.0-28.9, adult
CPT/HCPCS: 00123; 36415; 80053; 80076; 80307; 83690; 84145; 85027; 87040; 87637; 96365; 96372; 96375; 99285; J1650; 71046; 80320; 81003; 83605; 83735; 84443; 85025; 85610; 86140; 94640; 99223; 99238; J0696; J2405; J3475; J3480; J7613

== ENCOUNTER 2024-03-12 13:24 | Outpatient (REF) | payer MEDICAID, SELFPAY ==
[2024-03-12 15:34] LABS: ALT 59 U/L (14-59); AST 48 U/L (15-37); Albumin 3.5 g/dL (3.4-5.0); Alkaline Phosphatase 119 U/L (46-116); Anion Gap 8.2 mmol/L (3-11); BUN 6 mg/dL (7-18); Bilirubin, Total 0.3 mg/dL (0.2-1.0); CO2 28.8 mmol/L (21.0-32.0); CREATININE 0.8 mg/dL (0.55-1.02); Calcium 8.8 mg/dL (8.5-10.1); Chloride 96 mmol/L (98-107); Estimated GFR 86.42 (mL/min/1.73m2); Glucose 89 mg/dL (74-106); Potassium 4.6 mmol/L (3.5-5.1); Sodium 133 mmol/L (136-145); Total Protein 7.3 g/dL (6.4-8.2)
== END 2024-03-12 13:25 | disposition home or self-care (01) ==
LOC: NCHCN 13:24
PROVIDERS: PCP Physician Assistant; Visit Provider Physician Assistant
DX: E87.1 Hypo-osmolality and hyponatremia (principal)
CPT/HCPCS: 80053

== ENCOUNTER 2024-07-21 01:05 | Outpatient (CLI) | payer MEDICAID, SELFPAY ==
--- OUTSIDE RECORDS SUMMARY | 2024-06-18 02:23 | XMS_ITS | Encounter Summary ---
Author Organization [facility] Address [address] [place] [address] Care Team Providers Care Television Presenter Name Role Phone Unavailable Primary Care Provider Unavailabl e Encounter Details Date Type Department Care Team (Late st Contact Info) Description 08/07/2005 Results Only [facility] [address] [place] [address] Fahad Lyons, DO [address] [facility] [address] [place], [place] [address] Social History Tobacco Use Types Packs/Day Years Used Date Smoking Tobacco: Never Assessed Sex and Gender Information Value Date Recorded Sex Assigned at Not on file Gender Identity Not on file Sexual Orientation Not on file documented as of this encounter Plan of Treatment Not on file documented as of this encounter Procedures Procedure Name Priority Date/Time Associated Diagnosis Comments SURGICAL PATHOLOGY Routine 08/07/2005 0:00 EDT documented in this encounter Results * SURGICAL PATHOLOGY (08/07/2005 0:00 EDT) Pathology Report: SURGICAL PATHOLOGY REPORT Reports generated via electronic interface contain original data; however they are lacking the format of the original report. Caution should be taken when reading/interpreti ng unformatted reports. Name: ? GUNNER GORDILLO ? Accession #: ? [id number] ? : ? 1965 (Age: 40) ??F ? Collect Date: ? 08/07/2005 ? Location: ? [facility] ? Receive Date: ? 08/08/2005 ? Provider: FAHAD LYONS DO Copy to: [facility] ? Final Pathologic Diagnosis: ? Breast, right upper outer quadrant, ultrasound-guided needle core biopsy: - Fibroadenoma (7.0 mm). Document reviewed and electronically signed by: FABIO WHITLOCK MD Report ??Date: 08/10/2005 17:08 By the signature above, the attending physician certifies that he/she has personally conducted a gross and/or microscopic examination of the described specimens and rendered or confirmed the above diagnosis. Specimen(s) Received: ? Ultrasound guided core biopsy right breast core bx Clinical History: ? Breast mass UOQ Rt breast Gross Description: ? Received in formalin labelled Pia and R breast core bx are nine white to yellow cylindrical pieces of soft tissue which vary in length from 0.1 cm to 1.4 cm and average 0.1 cm in diameter. ??They are submitted entirely as (A1) to (A3). ??(Dr. Darling)/[facility] End of Report ARMANDO MAYO 08/07/2005 08/08/2005 15: 26 EDT Fahad Lyons DO PATHOLOGY ORDER STACY ARMANDO MAYO [address] [place] [address] documented in this encounter Visit Diagnoses Not on filedocumented in this encounter
--- OUTSIDE RECORDS SUMMARY | 2024-06-18 02:23 | XMS_ITS | Referral Summary ---
Author Organization [facility] Address [address] [place] [address] Care Team Providers Care Molded Goods Embossing Press Operator Name Role Phone VandanacurlyRacquel roberts NED Primary Care Provider [phone] Social History Tobacco Use Types Packs/Day Years Used Date Smoking Tobacco: Never Assessed Interpersonal Safety Answer Date Record ed Physically Hurt Never 08/16/2020 Verbally Threaten Not on file 08/16/2020 Sex and Gender Information Value Date Recorded Sex Assigned at Not on file Gender Identity Not on file Sexual Orientation Not on file Plan of Treatment Not on file Care Teams Molded Goods Embossing Press Operator Relationship Specialty Start Date End Date Racquel Galvan NP [facility] [address] [facility] [address] PCP - General 08/03/20
--- OUTSIDE RECORDS SUMMARY | 2024-06-18 02:23 | XMS_ITS | Encounter Summary ---
[facility] [place] [address] Care Team Providers Care Housekeeper Supervisor Name Role Phone Aimee Fernando MD Primary Care Provider [phone] Encounter Details Date Type Department Care Team (Late st Contact Info) Description 07/10/2006 [place] [id number] Malik Krause MD OBSTETRICS & GYNECOLOGY Social History Tobacco Use Types Packs/Day Years Used Date Smoking Tobacco: Never Assessed Sex and Gender Information Value Date Recorded Sex Assigned at Not on file Gender Identity Not on file Sexual Orientation Not on file documented as of this encounter Plan of Treatment Not on file documented as of this encounter Procedures Procedure Name Priority Date/Time Associated Diagnosis Comments SURGICAL PATHOLOGY REPORT Routine 07/10/2006 9:42 AM EDT documented in this encounter Results * Surgical Pathology Report (07/10/2006 9:42 AM EDT) Surgical Pathology Report [id number] ? Location: The signing pathologist has (i) examined the relevant preparation(s) for the specimen(s) and (ii) rendered or confirmed the diagnosis(es). . ?Pathology Surgical Pathology Final Report Clinical Information Specimen Submitted: A - Polyp, Uterus. B - Fallopian tube: ??left. C - Fallopian tube: ??right. Clinical Diagnosis: Previous tubal/endometria l polyp. Gross Description A - Labeled/Fixative : Polyp, uterus; formalin. Qty/Size/Weight: ?Fragments, 2.0 x 1.0 x 0.3 cm. Tissue Description: ?? Aggregate of red-brown, hemorrhagic soft tissue ?fragments admixed with blood and mucus. Sections/Process ing: ??(T1) ??aje/CSS B - Labeled/Fixative : Left fallopian tube, formalin. Qty/Size/Weight: ?Three, 0.5 x 0.4 cm to 1.0 x 0.5 cm. Tissue Description: ?? Soft, ellington-pink tubular portions of tissue. ??Within ?one of the tissues a 0.5-cm, white, opaque, plastic ?band is present consistent with a previous tubal ?ligation. Sections/Process ing: ??(R1) C - Labeled/Fixative : Right fallopian tube, formalin. Qty/Size/Weight: ?Two, averaging 0.8 x 0.6 x 0.4 cm. Tissue Description: ?? Soft, ellington-pink tubular portions of tissue. ??Within ?one of the tissues a 0.5-cm, white, opaque, plastic ?band is present consistent with a previous tubal ?ligation. Sections/Process ing: ??(R1) ??aje/SNS Microscopic Description Slides reviewed, microscopic description not recorded. Diagnosis A - Endometrium, curettings: ?1 - Benign endometrial polyp. ?2 - Fragments of secretory endometrium. ?3 - Fragments of benign endocervical glandular epithelium with focal ?squamous metaplasia. B - Segment of left fallopian tube. C - Segment of right fallopian tube. CR-0 07/11/06 ARS 07/11/06 Verified by: ? Tyler Bailey MD ?Pathologist ?(Electronic Signature) The attending pathologist whose signature appears on this report has reviewed all diagnostic slides and has edited the gross and/or microscopic portion of the report in rendering the final pathologic diagnosis. TABATHA AVINA 07/10/2006 9:42 AM EDT Malik Krause MD PATHOLOGY/CYTOLOGY O RDERABLES [facility] documented in this encounter Visit Diagnoses Not on filedocumented in this encounter Care Teams Housekeeper Supervisor Relationship Specialty Start Date End Date Aimee Fernando MD [address] [place] [address] PCP - General 09/26/10 documented as of this encounter
--- OUTSIDE RECORDS SUMMARY | 2024-06-18 02:23 | XMS_ITS | Encounter Summary ---
Author Organization [facility] Address [address] [place] [address] Care Team Providers Care Aviation Neuropsychologist Name Role Phone VandanacurlyRacquel roberts NED Primary Care Provider [phone] Encounter Details Date Type Department Care Team (Late st Contact Info) Description 05/12/2022 Lab Requisition [facility] Pathology & Laboratory Medicine - [facility] [address] [place] [address] Femi Cruz, [facility] [address] [place] [address] Encounter for other general examination Social History Tobacco Use Types Packs/Day Years [...] Priority Date/Time Associated Diagnosis Comments SURGICAL PATHOLOGY Today 05/11/2022 9: 00 EDT Encounter for other general examination documented in this encounter Results * SURGICAL PATHOLOGY (05/11/2022 9:00 EDT) Note to Patient The following pathology results have been interpreted by your pathologist and may be available to you before your health provider has had the opportunity to review them. Please allow time for your provider to receive these results and explore management options, if applicable. 05/15/2022 9:10 [facility] Final Diagnosis A. SKIN OF ARM, RIGHT UPPER, SHAVE BIOPSY: - Superficial portion of skin with features suggestive of verruca vulgaris. See comment. 05/15/2022 9:10 [facility] Diagnosis Comment The biopsy is somewhat superficial, transected through the stratum spinosum. Where the epidermis is represented, the findings are suggestive of a verruca vulgaris. However, the superficial nature precludes definitive assessment. Deeper levels have been examined on blocks A1 and A2.. 05/15/2022 9:10 [facility] Attestation By the signature below, the attending physician certifies that they have 1) personally conducted a gross and/or microscopic examination of the described specimen(s), and/or personally interpreted the results of laboratory testing of the described specimen(s), and 2) personally rendered or confirmed the above diagnosis. 05/15/2022 9:10 [facility] at 0910 Clinical History Inflamed skin tag raised hyperkeratotic lesion on R flank 05/15/2022 9:10 [facility] Gross Description A. Received in formalin labelled with proper patient identification (initials G, L) and lesion on R upper arm is a mottled brown ellington, friable nodular skin lesion, 0.6 x 0.5 x 0.4 cm. The base margin is inked. Bisected and entirely submitted in A1. Received in the same container is an irregular ellington-brown tissue, 0.3 x 0.2 x 0.1 cm. Entirely submitted in A2. MARIJA LOVETT(ASCP) 05/14/2022 8:32 05/15/2022 9:10 [facility] Performing Lab [facility] 05/15/2022 9:10 [facility] Scanned Images 05/15/2022 9:10 [facility] Tissue TISSUE SPECIMEN FROM SKIN / Unknown 05/11/2022 9:00 EDT 05/12/2022 10:03 EDT Femi Cruz RPA PATHOLOGY ORDERAB LES [facility] [address] [place] [address] documented in this encounter Visit Diagnoses Diagnosis Encounter for other general examination documented in this encounter Care Teams Aviation Neuropsychologist Relationship Specialty Start Date End Date Racquel Galvan NP [address] [place] [address] PCP - General 08/03/20 documented as of this encounter
--- OUTSIDE RECORDS SUMMARY | 2024-06-18 02:23 | XMS_ITS | Clinical Summary ---
Author Organization Pending Sale To [place] [address] Care Team Providers Care Food Service Manager Name Role Phone Aimee Fernando MD Primary Care Provider [phone] Allergies Active Allergy Reactions Criticality Noted Date Comments Erythromycin Base High CIS - sick to stomach,severe pain Medications Medication Sig Dispensed Refills Start Date End Date Status multivitamin (THERAGRAN) tablet 11/10/2007 Active ascorbic acid (VITAMIN C) 250 mg tablet 11/10/2007 Active levonorgestrel (LEVONORGESTREL) 20 mcg/24 hr IUD 11/10/2007 Active Social History Tobacco Use Types Packs/Day Years Used Date Smoking Tobacco: Never Assessed Sex and Gender Information Value Date Recorded Sex Assigned at Not on file Gender Identity Not on file Sexual Orientation Not on file Plan of Treatment Health Maintenance Due Date Last Done Comments CT Colonography 1967 Colonoscopy 1967 Colorectal Cancer Screening 1967 FIT DNA 1967 FIT 1967 Sigmoidoscopy (10 year) with FIT yearly 1967 Sigmoidoscopy 1965 HIV screen 1985 Hepatitis C Screening 1985 Hepatitis B vaccine (0-59 yrs) (1) 1986 Tdap adult 1986 Tetanus vaccine 1986 HPV test 1997 PAP Smear 1997 Breast Cancer Share Decision Needed 2007 Breast Cancer screening 2007 Zoster vaccine (1 of 2) 2017 Advance Directive 2022 Covid-19 Vaccine (1 - 2022-24 season) 2023 Influenza (Flu) vaccine (1 o f 1 - Influenza standard series) 07/05/2024 Care Teams Food Service Manager Relationship Specialty Start Date End Date Aimee Fernando MD [address] [place] [address] PCP - General 09/26/10
--- OUTSIDE RECORDS SUMMARY | 2024-06-18 02:23 | XMS_ITS | Encounter Summary ---
Author Organization [facility] Address [address] [place] [address] Care Team Providers Care Ux Design Lead Name Role Phone Unavailable Primary Care Provider Unavailabl e Encounter Details Date Type Department Care Team (Late st Contact Info) Description 10/20/2010 Results Only [address] [address] Aimee Fernando MD [address] [place] [address] Social History Tobacco Use Types Packs/Day Years Used Date Smoking Tobacco: Never Assessed Sex and Gender Information Value Date Recorded Sex Assigned at Not on file Gender Identity Not on file Sexual Orientation Not on file documented as of this encounter Plan of Treatment Not on file documented as of this encounter Procedures Procedure Name Priority Date/Time Associated Diagnosis Comments CYTOPATHOLOGY Routine 10/20/2010 0:00 EST documented in this encounter Results * CYTOPATHOLOGY (10/20/2010 0:00 EST) Pathology Report: CYTOPATHOLOGY REPORT ? Reports generated via electronic interface contain original data; ? however they are lacking the format of the original report. ? Caution should be taken when reading/interpreti ng unformatted reports. ? Name: ? GUNNER GORDILLO S ? Accession #: ? [id number] ? : ? 1965 (Age: 45) ??F ?Collect Date: ? 10/20/2010 ? Location: ? [facility] ? Receive Date: ? 10/23/2010 ? Provider: ?AIMEE FERNANDO MD ? Copy to: ? Specimen/Source: ?Pap Test, Endocervix, ThinPrep Imaging System with ? manual evaluation ? Last Menstrual Period: ? 12/10/10 ? Hormonal/Contracep tive Status: ? Intrauterine device ? SPECIMEN ADEQUACY ? Satisfactory for Evaluation ? - transformation zone component present ? - scant squamous epithelial component ? GENERAL CATEGORIZATION ? Negative for Intraepithelial Lesion or Malignancy ? Document reviewed and electronically signed by: ? Jermaine Castillo, CT(ASCP) ? Report Date: ??10/25/2010 16:10 ? End of Report ? ARMANDO MAYO 10/20/2010 10/23/2010 Aimee Fernando MD PATHOLOGY ORDERABLES [facility] [address] [place] [address] documented in this encounter Visit Diagnoses Not on filedocumented in this encounter
--- OUTSIDE RECORDS SUMMARY | 2024-06-18 02:23 | XMS_ITS | Encounter Summary ---
Author Organization [facility] Address [address] [place] [address] Care Team Providers Care Automatic Mold Sander Name Role Phone Unavailable Primary Care Provider Unavailabl e Encounter Details Date Type Department Care Team (Late st Contact Info) Description 11/26/2012 Results Only [facility] [phone] Courtney Valencia, DO [address] [place] [address] Social History Tobacco Use Types Packs/Day Years Used Date Smoking Tobacco: Never Assessed Sex and Gender Information Value Date Recorded Sex Assigned at Not on file Gender Identity Not on file Sexual Orientation Not on file documented as of this encounter Plan of Treatment Not on file documented as of this encounter Procedures Procedure Name Priority Date/Time Associated Diagnosis Comments SURGICAL PATHOLOGY Routine 11/26/2012 21 :54 EST documented in this encounter Results * SURGICAL PATHOLOGY (11/26/2012 21:54 EST) Pathology Report: SURGICAL PATHOLOGY REPORT Reports generated via electronic interface contain original data; however they are lacking the format of the original report. Caution should be taken when reading/interpreti ng unformatted reports. Name: ? GUNNER GORDILLO ? Accession #: ? [id number] ? : ? 1965 (Age: 47) ??F ? Collect Date: ? 11/26/2012 ? Location: ? [facility] ? Receive Date: ? 11/26/2012 ? Provider: COURTNEY VALENCIA DO Copy to: VITOR LEE MD ? Final Pathologic Diagnosis: ? Skin of scalp, top, excision: - Seborrheic keratosis. ?? Microscopic Description: ? The stratum corneum is thickened by compact and basketweave orthokeratosis with formation of horn pseudocysts. ??The epidermis is acanthotic with formation of broad and anastomosing trabeculae. ??The trabeculae are composed of basaloid keratinocytes with round uniform nuclei. ??The keratinocytes have a variable amount of melanin pigment. ??(Dr. Ferguson)/[facility] Document reviewed and electronically signed by: RADHA FERGUSON MD Report ??Date: 11/28/2012 13:00 By the signature above, the attending physician certifies that he/she has personally conducted a gross and/or microscopic examination of the described specimens and rendered or confirmed the above diagnosis. Specimen(s) Received: ? Lesion top of scalp Clinical History: ? Lesion 1.0 x 1.0 cm top of scalp Gross Description: ? Received in formalin labelled Arjun, Gunner and lesion top of scalp is an unoriented elliptical excision of ellington-white hairbearing skin measuring 1.8 x 1.1 cm and is excised to a depth of 0.4 cm. ??There is a central 1.1 x 0.8 by less than 0.1 cm irregular ellington-escobar hairbearing nodule. ??The margins are inked. ??The specimen is serially sectioned and entirely submitted as (1) and (2)-central sections and (3)-tips, reverse en face. ??(John Peter)/[facility] End of Report ARMANDO MAYO 11/26/2012 21:5 4 EST 11/26/2012 21:54 EST Courtney Valencia DO PATHOLOGY ORDERABLES Performing Organization Address City/State/[facility] Co de Phone Number ARMANDO [address] [address] documented in this encounter Visit Diagnoses Not on filedocumented in this encounter
--- OUTSIDE RECORDS SUMMARY | 2024-06-18 02:23 | XMS_ITS | Encounter Summary ---
Author Organization [facility] Address [address] [place] [address] Care Team Providers Care Mushroom Cultivator Name Role Phone Aimee Fernando MD Primary Care Provider [phone] Encounter Details Date Type Department Care Team (Late st Contact Info) Description 12/08/2013 Results Only [facility] - [facility] ([facility]) [address] [place], [place] [phone] Lazara Ann, [facility] [address] [place] [phone] Social History Tobacco Use Types Packs/Day Years Used Date Smoking Tobacco: Never Assessed Sex and Gender Information Value Date Recorded Sex Assigned at Not on file Gender Identity Not on file Sexual Orientation Not on file documented as of this encounter Plan of Treatment Not on file documented as of this encounter Procedures Procedure Name Priority Date/Time Associated Diagnosis Comments PAP TEST- RESULT ONLY Routine 12/08/2013 0:00 EST documented in this encounter Results * PAP TEST- RESULT ONLY (12/08/2013 0:00 EST) Pathology Report: CYTOPATHOLOGY REPORT Reports generated via electronic interface contain original data; however they are lacking the format of the original report. Caution should be taken when reading/interpreti ng unformatted reports. Name: ? GUNNER GORDILOL ? Accession #: ? [id number] ? : ? 1965 (Age: 48) ??F ?Collect Date: ? 12/08/2013 ? Location: ? [facility] ? Receive Date: ? 12/09/2013 ? Provider: LAZARA ANN [facility] Copy to: AIMEE FERNANDO MD ? Final Report SPECIMEN ADEQUACY ? Satisfactory for Evaluation - transformation zone component present GENERAL CATEGORIZATION ? Negative for Intraepithelial Lesion or Malignancy INTERPRETATION ? Shift in kelsy present suggestive of bacterial vaginosis. Hormonal/Contracep tive status: Intrauterine device: Mirena Previous Gynecologic Pathology: HPV: + 11/20/12; Pap WNL Specimen/Source: ??Pap Test, Cervix/Endocervix, ThinPrep Imaging System with manual evaluation Document reviewed and electronically signed by: ? Eli Vargas, CT(ASCP) ? Report ??Date: 12/15/2013 07:45 HPV with Pap Test ? Date Ordered: ? 12/14/2013 ? Status: ?? Signed Out ?Date Complete: ? 12/17/2013 ? By: ??System Interface ? Date Reported: ? 12/17/2013 ? Interpretation RESULT: Negative for HPV. No E6 or E7 mRNA is detected from HPV types 16,18,31,33,35, 39,45,51,52,56,58, 59,66, and 68 by taping machine operator mediated amplification. Comments Document reviewed and electronically signed by: ? System Interface ? Report date: 12/17/2013 By the signature above, the attending physician certifies that he/she has personally conducted a gross and/or microscopic examination of the described specimens and rendered or confirmed the above diagnosis. End of Report [facility] 12/08/2013 12/09/2013 Lazara Ann MOLD MOVER PATHOLOGY ORDERABLES Performing Organization Address City/State/[facility] Co de Phone Number [facility] [address] [place] [address] documented in this encounter Visit Diagnoses Not on filedocumented in this encounter Care Teams Mushroom Cultivator Relationship Specialty Start Date End Date Aimee Fernando MD [address] [place] [phone] PCP - General 11/28/12 08/02/20 documented as of this encounter
--- OUTSIDE RECORDS SUMMARY | 2024-06-18 02:23 | XMS_ITS | Encounter Summary ---
Author Organization [facility] Address [address] [place] [address] Care Team Providers Care Factory Assembler Name Role Phone Unavailable Primary Care Provider Unavailabl e Encounter Details Date Type Department Care Team (Late st Contact Info) Description 03/30/[address] [facility] - Maple conversion [address] [place] [address] Maren Oglesby, NED [address] [place] [address] Social History Tobacco Use Types Packs/Day Years Used Date Smoking Tobacco: Never Assessed Sex and Gender Information Value Date Recorded Sex Assigned at Not on file Gender Identity Not on file Sexual Orientation Not on file documented as of this encounter Plan of Treatment Not on file documented as of this encounter Procedures Procedure Name Priority Date/Time Associated Diagnosis Comments CYTOPATHOLOGY Routine 03/30/2004 0:00 EDT documented in this encounter Results * CYTOPATHOLOGY (03/30/2004 0:00 EDT) Pathology Report: CYTOPATHOLOGY REPORT Reports generated via electronic interface contain original data; however they are lacking the format of the original report. Caution should be taken when reading/interpreti ng unformatted reports. Name: ? GUNNER GORDILLO ? Accession #: ? [id number] : ? 1965 (Age: 38) ??F ?Collect Date: ? 03/30/2004 Location: ? [facility] ? Receive Date: ? 04/04/2004 Provider: ?MAREN OGELSBY CLEANING MAID Copy to: ? Specimen/Source: ?ThinPrep Pap Test, Cervix/Endocervix Last Menstrual Period: ? 03/08/04 Other: ? HPVA - HPV testing requested if ASC-US on the current ThinPrep Pap test. ? SPECIMEN ADEQUACY ? Satisfactory for Evaluation - transformation zone component present GENERAL CATEGORIZATION ? Negative for Intraepithelial Lesion or Malignancy ? Document reviewed and electronically signed by: ? SOCORRO Liang(ASCP) ? Report Date: ??04/07/2004 11:55 End of Report [facility] 03/30/2004 04/04/2004 Maren Oglesby NP PATHOLOGY ORDERABLE S [facility] [address] [place] [address] documented in this encounter Visit Diagnoses Not on filedocumented in this encounter
--- OUTSIDE RECORDS SUMMARY | 2024-06-18 02:23 | XMS_ITS | Encounter Summary ---
Author Organization [facility] Address [address] [place] [address] Care Team Providers Care Business Services Tech Name Role Phone Racquel Galvan MANAGER OF PLANNING Primary Care Provider [phone] Encounter Details Date Type Department Care Team (Late st Contact Info) Description 05/26/2021 Lab Requisition [facility] Pathology & Laboratory Medicine - [address] [address] Outr Resulting Lab, Provider Social History Tobacco Use Types Packs/Day Years [...] Procedure Name Priority Date/Time Associated Diagnosis Comments ZZCOVID-19 TEST [facility] PCR Today 05/26/2021 10:35 EDT COVID-19 TESTING Routine 05/26/2021 10:3 5 EDT documented in this encounter Results * COVID-19 TEST [facility] PCR (05/26/2021 10:35 EDT) Swab ENTIRE NASOPHARYNX / Unknown 05/26/2021 10:35 EDT 05/26/2021 20:54 EDT Provider Outr Resulting Lab MICROBIOLOGY - GENERAL ORDERABLES [facility] [address] [place] [address] * COVID-19 TESTING (05/26/2021 10:35 EDT) COVID-19 rt-PCR Result Negative Negative 05/27/2021 14:11 EDT [facility] Comment: This test has not been FDA cleared or approved. This test has been authorized by FDA under an EUA for use by authorized laboratories. This test has been authorized only for detection of nucleic acid from 2019-nCoV, not for any other viruses or pathogens. This test is only authorized for the duration of the declaration that circumstances exist justifying the authorization of emergency use of in vitro diagnostic tests for detection and/or diagnosis of 2019-nCoV under section 564(b)(1) of Act, 21 U.S.C ?? 360bbb-3(b) (1), unless the authorization is terminated or revoked sooner. Negative results do not preclude 2019-nCoV infection and should not be used as the sole basis for treatment or other patient management decisions. Negative results must be combined with clinical observations, patient history, and epidemiological information. Testing was performed using the brina SARS-CoV-2 assay ([employer] on the Brina 6800 System Performing Lab Brina [address] [facility] 05/27/2021 14:11 EDT [facility] Swab 05/26/2021 10:3 5 EDT 05/26/2021 20:54 EDT Provider Outr Resulting Lab MICROBIOLOGY - GENERAL ORDERABLES [facility] [address] [place] [address] documented in this encounter Visit Diagnoses Not on filedocumented in this encounter Care Teams Business Services Tech Relationship Specialty Start Date End Date Racquel Galvan [place] [address] PCP - General 08/03/20 documented as of this encounter
--- OUTSIDE RECORDS SUMMARY | 2024-06-18 02:23 | XMS_ITS | Encounter Summary ---
Author Organization [facility] Address [address] [place] [address] Care Team Providers Care Raw Material Handler Name Role Phone Unavailable Primary Care Provider Unavailabl e Encounter Details Date Type Department Care Team (Late st Contact Info) Description 11/20/2012 Results Only [facility] Services - [facility] ([facility]) [address] [place], [place] [address] Lazara Ann, [facility] [address] [place] [phone] Social History Tobacco Use Types Packs/Day Years [...] Diagnosis Comments PAP TEST- RESULT ONLY Routine 11/20/2012 0:00 EST documented in this encounter Results * PAP TEST- RESULT ONLY (11/20/2012 0:00 EST) Pathology Report: CYTOPATHOLOGY REPORT Reports generated via electronic interface contain original data; however they are lacking the format of the original report. Caution should be taken when reading/interpreti ng unformatted reports. Name: ? GUNNER GORDILLO ? Accession #: ? [id number] ? : ? 1965 (Age: 47) ??F ?Collect Date: ? 11/20/2012 ? Location: ? [facility] ? Receive Date: ? 11/21/2012 ? Provider: LAZARA ANN GRAPHIC DESIGN ASSISTANT Copy to: ? Final Report SPECIMEN ADEQUACY ? Satisfactory for Evaluation - transformation zone component present GENERAL CATEGORIZATION ? Negative for Intraepithelial Lesion or Malignancy INTERPRETATION ? Reactive cellular changes associated with inflammation present (includes repair). Hormonal/Contracep tive status: Intrauterine device: mirena Specimen/Source: ??Pap Test, Cervix/Endocervix, ThinPrep Imaging System with manual evaluation Document reviewed and electronically signed by: ? DON GORMAN MD ? Report ??Date: 11/29/2012 15:06 HPV with Pap Test ? Date Ordered: ? 11/28/2012 ? Status: ?? Signed Out ?Date Complete: ? 12/04/2012 ? By: ??System Interface ? Date Reported: ? 12/04/2012 ? Interpretation RESULT: Positive for high or intermediate risk HPV. E6 OR E7 mRNA from one or more types of HPV types 16,18,31, 33,35,39,45,51,52, 56,58,59,66, and 68 is detected by road gang supervisor mediated amplification. High and intermediate risk HPV types are associated with most squamous intraepithelial lesions and cervical cancers. Comments Document reviewed and electronically signed by: ? System Interface ? Report date: 12/04/2012 By the signature above, the attending physician certifies that he/she has personally conducted a gross and/or microscopic examination of the described specimens and rendered or confirmed the above diagnosis. End of Report ARM[facility]O MAYO 11/20/2012 11/21/2012 Lazara Ann GRAPHIC DESIGN ASSISTANT PATHOLOGY ORDERABLES Performing Organization Address City/State/[facility] Co de Phone Number ARMANDO MAYO [address] [place] [address] documented in this encounter Visit Diagnoses Not on filedocumented in this encounter
--- OUTSIDE RECORDS SUMMARY | 2024-06-18 02:23 | XMS_ITS | Encounter Summary ---
Author Organization [facility] Address [facility] [place] [address] Care Team Providers Care Printed Circuit Board Assembly Repairer Name Role Phone Aimee Fernando MD Primary Care Provider [phone] Encounter Details Date Type Department Care Team (Late st Contact Info) Description 12/31/2006 Orders Only Obstetrics [place] [phone] Susan Fierro [facility] [place] [address] Social History Tobacco Use Types Packs/Day Years [...] Associated Diagnosis Comments SURGICAL PATHOLOGY REPORT Routine 12/31/2006 2:53 PM EST documented in this encounter Results * Surgical Pathology Report (12/31/2006 2:53 PM EST) Surgical Pathology Report [id number] ? Location: The signing pathologist has (i) examined the relevant preparation(s) for the specimen(s) and (ii) rendered or confirmed the diagnosis(es). . ?Pathology Surgical Pathology Final Report Clinical Information Specimen Submitted: A - Products of conception Clinical History: Spontaneous abort @ 10 wks Clinical Diagnosis: As above Gross Description Labeled/Fixative : ? Labeled with the patient's name, formalin. Qty/Size/Weight: ?Two. ??The placental tissue is 8.0 x 4.0 x 0.5 cm. ?The amniotic sac and attached cord is overall ?13.0 x 4.0 x 0.5 cm. Tissue Description: ?? Received are two fragments of tissue. ??The first is ?spongy, ellington-red, homogeneous placental tissue. ??The second is a completely intact amniotic sac with attached cord. ??Within the amniotic sac there is scant, gelatinous fluid and an identifiable fetus noted within, 2.0 x 0.5 x 0.5 cm. Sections/Process ing: ??Gross photographs are taken. ??(1) fetus; (2) sections ?of the amniotic sac; (3) placental tissue with cross ?section of cord. ??(R3) aje/RR Microscopic Description Slides reviewed, microscopic description not recorded. Diagnosis Products of conception (clinically, spontaneous ). CR-0 01/02/07 ARS 01/03/07 Verified by: ? Tyler Bailey MD ?Pathologist ?(Electronic Signature) The attending pathologist whose signature appears on this report has reviewed all diagnostic slides and has edited the gross and/or microscopic portion of the report in rendering the final pathologic diagnosis. [facility] 12/31/2006 2:53 PM EST Susan Fierro [facility] PATHOLOGY/CYTO LOGY ORDERABLES [facility] documented in this encounter Visit Diagnoses Not on filedocumented in this encounter Care Teams Printed Circuit Board Assembly Repairer Relationship Specialty Start Date End Date Aimee Fernando MD [address] [place] [address] PCP - General 09/26/10 documented as of this encounter
--- OUTSIDE RECORDS SUMMARY | 2024-06-18 02:23 | XMS_ITS | Encounter Summary ---
Author Organization [facility] Address [address] [place] [address] Care Team Providers Care Machine Cloth Trimmer Name Role Phone Unavailable Primary Care Provider Unavailabl e Encounter Details Date Type Department Care Team (Late st Contact Info) Description 07/20/2005 Results Only [facility] - Maple conversion [address] [place] [address] Misha Ann, [facility] [address] [place] [phone] Social History Tobacco Use Types Packs/Day Years Used Date Smoking Tobacco: Never Assessed Sex and Gender Information Value Date Recorded Sex Assigned at Not on file Gender Identity Not on file Sexual Orientation Not on file documented as of this encounter Plan of Treatment Not on file documented as of this encounter Procedures Procedure Name Priority Date/Time Associated Diagnosis Comments CYTOPATHOLOGY Routine 07/20/2005 0:00 EDT documented in this encounter Results * CYTOPATHOLOGY (07/20/2005 0:00 EDT) Pathology Report: CYTOPATHOLOGY REPORT Reports generated via electronic interface contain original data; however they are lacking the format of the original report. Caution should be taken when reading/interpreti ng unformatted reports. Name: ? GUNNER GORDILLO ? Accession #: ? [id number] : ? 1965 (Age: 39) ??F ?Collect Date: ? 07/20/2005 Location: ? [facility] ? Receive Date: ? 07/23/2005 Provider: ?MISHA ANN WARP TRUCKER Copy to: ? Specimen/Source: ?ThinPrep Pap Test, Cervix/Endocervix, processed on [employer] ThinPrep Imaging System, with manual evaluation Last Menstrual Period: ? 07/09/05 Other: ? HPVA - HPV testing requested if ASC-US on the current ThinPrep Pap test. ? SPECIMEN ADEQUACY ? Satisfactory for Evaluation - transformation zone component present GENERAL CATEGORIZATION ? Negative for Intraepithelial Lesion or Malignancy INTERPRETATION ? Reactive cellular changes associated with inflammation present (includes repair). ? Document reviewed and electronically signed by: ? DON GORMAN MD ? Report Date: ??07/30/2005 15:17 End of Report ARMANDO MAYO 07/20/2005 07/23/2005 Misha Ann WARP TRUCKER PATHOLOGY ORDERABLES [facility]O [address] [place] [address] documented in this encounter Visit Diagnoses Not on filedocumented in this encounter
--- OUTSIDE RECORDS SUMMARY | 2024-06-18 02:23 | XMS_ITS | Encounter Summary ---
[facility] Organization [facility] [place] [address] Care Team Providers Care Member Of Congress Name Role Phone Aimee Fernando MD Primary Care Provider [phone] Encounter Details Date Type Department Care Team (Late st Contact Info) Description 02/05/2007 [place] [id number] Malik Krause MD OBSTETRICS & GYNECOLOGY Social [...] Associated Diagnosis Comments SURGICAL PATHOLOGY REPORT Routine 02/05/2007 4:42 PM EDT documented in this encounter Results * Surgical Pathology Report (02/05/2007 4:42 PM EDT) Surgical Pathology Report [id number] ? Location: The signing pathologist has (i) examined the relevant preparation(s) for the specimen(s) and (ii) rendered or confirmed the diagnosis(es). . ?Pathology Surgical Pathology Final Report Clinical Information Specimen Submitted: A - Polyp & curettings: ??endometrial. Clinical Diagnosis: Endometrial polyp. Gross Description Labeled/Fixative: ? Polyp and curettings, formalin. Qty/Size/Weight: ?Fragments, 4.0 x 1.9 x 0.3 cm. Tissue Description: ?? Aggregate of red-brown, hemorrhagic soft tissue ?fragments admixed with blood and mucus. Sections/Processi ng: ??Formalin is filtered. ??(T2) ??aje/CSS Microscopic Description Slides reviewed, microscopic description not recorded. Diagnosis Endometrium, curettings: ?1 - Fragments of benign proliferative endometrium, negative for ?hyperplasia, malignancy, and endometritis. ?2 - Fragments of a benign endometrial polyp. CR-0 02/06/07 ARS 02/06/07 Verified by: ? Tyler Bailey MD ?Pathologist ?(Electronic Signature) The attending pathologist whose signature appears on this report has reviewed all diagnostic slides and has edited the gross and/or microscopic portion of the report in rendering the final pathologic diagnosis. TABATHA AVINA 02/05/2007 4:42 PM EDT Malik Krause MD PATHOLOGY/CYTOLOGY O RDERABLES Performing Organization Address City/State/[facility] Co de Phone Number [facility] documented in this encounter Visit Diagnoses Not on filedocumented in this encounter Care Teams Member Of Congress Relationship Specialty Start Date End Date Aimee Fernando MD [address] [place] [address] PCP - General 09/26/10 documented as of this encounter
--- OUTSIDE RECORDS SUMMARY | 2024-06-18 02:23 | XMS_ITS | Encounter Summary ---
Author Organization [facility] Address [address] [place] [address] Care Team Providers Care Casino Cashier Manager Name Role Phone Unavailable Primary Care Provider Unavailabl e Encounter Details Date Type Department Care Team (Late st Contact Info) Description 10/19/2002 Results Only [facility] - Maple conversion [address] [place] [address] Sadaf Davenport, NED Social History Tobacco Use Types Packs/Day Years Used Date Smoking Tobacco: Never Assessed Sex and Gender Information Value Date Recorded Sex Assigned at Not on file Gender Identity Not on file Sexual Orientation Not on file documented as of this encounter Plan of Treatment Not on file documented as of this encounter Procedures Procedure Name Priority Date/Time Associated Diagnosis Comments CYTOPATHOLOGY Routine 10/19/2002 0:00 EST documented in this encounter Results * CYTOPATHOLOGY (10/19/2002 0:00 EST) Pathology Report: CYTOPATHOLOGY REPORT Reports generated via electronic interface contain original data; however they are lacking the format of the original report. Caution should be taken when reading/interpreti ng unformatted reports. Name: ? GUNNER GORDILLO ? Accession #: ? [id number] : ? 1965 (Age: 37) ??F ?Collect Date: ? 10/19/2002 Location: ? [facility] ? Receive Date: ? 10/20/2002 Provider: ?SADAF DAVENPORT BEEF BREAKER Copy to: ? Specimen/Source: ?ThinPrep Pap Test, Cervix/Endocervix Last Menstrual Period: ? 09/21/02 ? SPECIMEN ADEQUACY ? Satisfactory for Evaluation - transformation zone component present GENERAL CATEGORIZATION ? Negative for Intraepithelial Lesion or Malignancy ? Document reviewed and electronically signed by: ? SOCORRO Ayala(ASCP) ? Report Date: ??10/21/2002 09:21 End of Report [facility] 10/19/2002 10/20/2002 Sadaf Davenport NP PATHOLOGY ORDERABLES [facility] [address] [place] [address] documented in this encounter Visit Diagnoses Not on filedocumented in this encounter
--- OUTSIDE RECORDS SUMMARY | 2024-06-18 02:23 | XMS_ITS | Encounter Summary ---
Author Organization [facility] Address [address] [place] [address] Care Team Providers Care Apparel Patternmaker Name Role Phone Unavailable Primary Care Provider Unavailabl e Encounter Details Date Type Department Care Team (Late st Contact Info) Description 10/03/2007 Results Only [address] [address] Aimee Fernando MD [address] [place] [address] Social History Tobacco Use Types Packs/Day Years Used Date Smoking Tobacco: Never Assessed Sex and Gender Information Value Date Recorded Sex Assigned at Not on file Gender Identity Not on file Sexual Orientation Not on file documented as of this encounter Plan of Treatment Not on file documented as of this encounter Procedures Procedure Name Priority Date/Time Associated Diagnosis Comments CYTOPATHOLOGY Routine 10/03/2007 0:00 EST documented in this encounter Results * CYTOPATHOLOGY (10/03/2007 0:00 EST) Pathology Report: CYTOPATHOLOGY REPORT Reports generated via electronic interface contain original data; however they are lacking the format of the original report. Caution should be taken when reading/interpreti ng unformatted reports. Name: ? GUNNER GORDILLO ? Accession #: ? [id number] : ? 1965 (Age: 42) ??F ?Collect Date: ? 10/03/2007 Location: ? [facility] ? Receive Date: ? 10/07/2007 Provider: ?AIMEE FERNANDO MD Copy to: ? Specimen/Source: ?ThinPrep Pap Test, Endocervix, processed on Digital Bloom ThinPrep Imaging System, with manual evaluation Last Menstrual Period: ? 09/30/07 Other: ? HPVA - HPV testing requested if ASC-US on the current ThinPrep Pap test. ? SPECIMEN ADEQUACY ? Satisfactory for Evaluation - transformation zone component present GENERAL CATEGORIZATION ? Negative for Intraepithelial Lesion or Malignancy ? Document reviewed and electronically signed by: ? Henok Kwan, SOCORRO(ASCP) ? Report Date: ??10/09/2007 09:53 End of Report ARMANDO MAYO 10/03/2007 10/07/2007 Aimee Fernando MD PATHOLOGY ORDERABLES Performing Organization Address City/State/[facility] Co de Phone Number ARMANDO MAYO [address] [place] [address] documented in this encounter Visit Diagnoses Not on filedocumented in this encounter
--- OUTSIDE RECORDS SUMMARY | 2024-06-18 02:23 | XMS_ITS | Encounter Summary ---
Author Organization [facility] Address [address] [place] [address] Care Team Providers Care Wireless Team Member Name Role Phone Aimee Fernando MD Primary Care Provider [phone] Encounter Details Date Type Department Care Team (Late st Contact Info) Description 07/20/2019 Results Only [facility] [phone] Racquel Galvan NP [address] [place], [place] [phone] Social History Tobacco Use Types Packs/Day Years [...] Diagnosis Comments PAP TEST- RESULT ONLY Routine 07/20/2019 0:00 EDT documented in this encounter Results * PAP TEST- RESULT ONLY (07/20/2019 0:00 EDT) Pathology Report: CYTOPATHOLOGY REPORT Reports generated via electronic interface contain original data; however they are lacking the format of the original report. Caution should be taken when reading/interpreti ng unformatted reports. Name: ? GUNNER CORONA ? Accession #: ? [id number] ? : ? 1965 (Age: 53) ??F ?Collect Date: ? 07/20/2019 ? Location: ? [facility] ? Receive Date: ? 07/21/2019 ? Provider: RACQUEL GALVAN MANAGER ESTATE Copy to: ? Final Report SPECIMEN ADEQUACY ? Satisfactory for Evaluation - transformation zone component present GENERAL CATEGORIZATION ? Negative for Intraepithelial Lesion or Malignancy ?? Last Menstrual Period: 07/05/18 Hormonal/Contracep tive status: Intrauterine device Other: Additional clinical information: Z00.00 Z12.4 Z11.51 Specimen/Source: ??Pap Test, Cervix, ThinPrep Imaging System with manual evaluation Document reviewed and electronically signed by: ? SOCORRO Ayala(ASCP) ? Report ??Date: 07/23/2019 10:27 HPV with Pap Test ? Date Ordered: ? 07/23/2019 ? Status: ?? Signed Out ?Date Complete: ? 07/24/2019 ? By: ??System Interface ? Date Reported: ? 07/24/2019 ? Interpretation RESULT: Negative for HPV. No E6 or E7 mRNA is detected from HPV types 16,18,31,33,35, 39,45,51,52,56,58, 59,66, and 68 by oil and gas recruiter mediated amplification. Comments Document reviewed and electronically signed by: ? System Interface ? Report date: 07/24/2019 By the signature above, the attending physician certifies that he/she has personally conducted a gross and/or microscopic examination of the described specimens and rendered or confirmed the above diagnosis. End of Report [facility] 07/20/2019 07/21/2019 Racquel Galvan MANAGER ESTATE PATHOLOGY ORDERABLES [facility] [address] [place] [address] documented in this encounter Visit Diagnoses Not on filedocumented in this encounter Care Teams Wireless Team Member Relationship Specialty Start Date End Date Aimee Fernando MD [address] [place] [address] PCP - General 11/28/12 08/02/20 documented as of this encounter
--- OUTSIDE RECORDS SUMMARY | 2024-06-18 02:23 | XMS_ITS | Encounter Summary ---
Author Organization [facility] Address [address] [place] [address] Care Team Providers Care Tooth Cutter Name Role Phone Racquel Galvan BUS AND TROLLEY INSPECTING DISPATCHER Primary Care Provider [phone] Encounter Details Date Type Department Care Team (Late st Contact Info) Description 08/26/2021 Lab Requisition [facility] Pathology & Laboratory Medicine - [address] [address] Outr Resulting Lab, Provider Social History Tobacco [...] Procedure Name Priority Date/Time Associated Diagnosis Comments ACUTE HEPATITIS PROFILE Routine 08/25/2021 13:55 EDT documented in this encounter Results * ACUTE HEPATITIS PROFILE (08/25/2021 13:55 EDT) Hep B Surface Ag Negative Negative 08/28/2021 12:38 EDT [facility] Hep C Antibody Negative Negative 08/28/2021 12:38 EDT [facility] Hepatitis A Antibody, IgM Negative Negative 08/28/2021 12:38 EDT [facility] Comment:The results of this assay can be falsely lowered due to the consumption of Biotin. Hepatitis B Core Ab, Total Negative Negative 08/28/2021 12:38 EDT [facility] Blood VENOUS BLOOD / Unknown 08/25/2021 13:55 EDT 08/27/2021 17:04 EDT Provider Outr Resulting Lab CHEMISTRY & BLOOD GAS ORDERABLES Performing Organization Address City/State/[facility] Co de Phone Number [facility] [address] [place] [address] documented in this encounter Visit Diagnoses Not on filedocumented in this encounter Care Teams Tooth Cutter Relationship Specialty Start Date End Date Racquel [place] [address] [place] [address] PCP - General 08/03/20 documented as of this encounter
--- OUTSIDE RECORDS SUMMARY | 2024-06-18 02:23 | XMS_ITS | Encounter Summary ---
Author Organization [facility] Address [address] [place] [address] Care Team Providers Care Can Crimper Name Role Phone Racquel Galvan NED Primary Care Provider [phone] Encounter Details Date Type Department Care Team (Late st Contact Info) Description 08/03/2020 Lab Requisition [facility] Pathology & Laboratory Medicine - [address] [address] Azael Shah MD [address] [place] [address] Encounter for other general examination Social History [...] Date/Time Associated Diagnosis Comments SURGICAL PATHOLOGY Today 08/03/2020 14 :30 EDT Encounter for other general examination documented in this encounter Results * SURGICAL PATHOLOGY (08/03/2020 14:30 EDT) Final Diagnosis A. ENDOMETRIUM, BIOPSY: - Fragments of benign inactive endometrium with tubal metaplasia. 08/08/2020 9:[address] [facility] Attestation There was significant resident/fellow involvement in the diagnostic evaluation of this case. By the signature below, the attending physician certifies that they have personally conducted a gross and/or microscopic examination of the described specimens and rendered or confirmed the above diagnosis. 08/08/2020 9:[address] [facility] at 0922 Clinical History PMB, fibroid uterus 08/08/2020 9:[address] [facility] Gross Description A. Received in formalin labelled with proper patient identification (initials G, L) and endometrial Bx is an aggregate of dark brown cloudy focally ellington clear mucus (1.3 x 1.1 x 0.3 cm). Entirely submitted in A1-A2. Grayson Dean 8:38 08/08/2020 9:[address] [facility] Resident/Charbel w: Kiran Kearns MD 08/08/2020 9:[address] [facility] Performing Lab [facility] 08/08/2020 9:[address] [facility] Scanned Images 08/08/2020 9:[address] [facility] Tissue ENTIRE ENDOMETRIUM / Unknown 08/03/2020 14:30 EDT 08/03/2020 22:50 EDT Azael Shah MD PATHOLOGY ORDERABLES [facility] [address] [place] [address] documented in this encounter Visit Diagnoses Diagnosis Encounter for other general examination documented in this encounter Care Teams Can Crimper Relationship Specialty Start Date End Date Racquel [place] [address] [place] [address] PCP - General 08/03/20 documented as of this encounter
--- OUTSIDE RECORDS SUMMARY | 2024-06-18 02:23 | XMS_ITS | Clinical Summary ---
Author Organization [facility] Address [address] [place] [address] Care Team Providers Care Electrical Appliance Servicer Name Role Phone Racquel Galvan NP Primary Care Provider [phone] Social History Tobacco Use Types Packs/Day Years Used Date Smoking Tobacco: Never Assessed Interpersonal Safety Answer Date Record ed Physically Hurt Never 08/16/2020 Verbally Threaten Not on file 08/16/2020 Sex and Gender Information Value Date Recorded Sex Assigned at Not on file Gender Identity Not on file Sexual Orientation Not on file Plan of Treatment Health Maintenance Due Date Last Done Comments Hepatitis C Screen 1965 Hepatitis B Vaccine (1 of 3 - 19+ 3-dose series) 07/25 COVID-19 Vaccine ( season) 2023 Care Teams Electrical Appliance Servicer Relationship Specialty Start Date End Date Racquel Galvan NP [address] [place] [place] [address] PCP - General 08/03/20
--- OUTSIDE RECORDS SUMMARY | 2024-06-23 01:22 | XMS_ITS | Encounter Summary ---
Author Organization [facility] Address [address] [place] [address] Care Team Providers Care Customer Service Leader Name Role Phone Racquel Galvan SENIOR MANAGING DIRECTOR Primary Care Provider [phone] Encounter Details Date Type Department Care Team (Late st Contact Info) Description 05/26/2021 Lab Requisition [facility] Pathology & Laboratory Medicine - [address] [address] Outr Resulting Lab, Provider Social History Tobacco [...] Outr Resulting Lab MICROBIOLOGY - GENERAL ORDERABLES [facility] [address] [place] [address] * COVID-19 TESTING (05/26/2021 10:35 EDT) COVID-19 rt-PCR Result Negative Negative 05/27/2021 14:11 EDT [facility] Comment: This test has [...] performed using the brina SARS-CoV-2 assay ([employer] on the Brina 6800 System Performing Lab Brina [address] [facility] 05/27/2021 14:11 EDT [facility] Swab 05/26/2021 10:3 5 EDT 05/26/2021 20:54 EDT Provider Outr Resulting Lab MICROBIOLOGY - GENERAL ORDERABLES [facility] [address] [place] [address] documented in this encounter Visit Diagnoses Not on filedocumented in this encounter Care Teams Customer Service Leader Relationship Specialty Start Date End Date Racquel Galvan NP [address] [place] [address] PCP - General 08/03/20 documented as of this encounter
--- OUTSIDE RECORDS SUMMARY | 2024-06-23 01:22 | XMS_ITS | Encounter Summary ---
Author Organization [facility] Address [address] [place] [address] Care Team Providers Care Real Estate Salesperson Name Role Phone Unavailable Primary Care Provider Unavailabl e Encounter Details Date Type Department Care Team (Late st Contact Info) Description 10/20/2010 Results Only [address] [address] Aimee Fernando MD [address] [place] [address] Social History Tobacco Use Types Packs/Day Years [...] GUNNER GORDILLO S ? Accession #: ? [id number] ? : ? 1965 (Age: 45) ??F [...] Fernando MD PATHOLOGY ORDERABLES [facility] [address] [place] [address] documented in this encounter Visit Diagnoses Not on filedocumented in this encounter
--- OUTSIDE RECORDS SUMMARY | 2024-06-23 01:22 | XMS_ITS | Referral Summary ---
Author Organization [facility] Address [address] [place] [address] Care Team Providers Care Airframe And Power Plant Mechanic Name Role Phone Janemalcomoksana Racquel MARINO Primary Care Provider [phone] Social History Tobacco Use Types Packs/Day Years Used Date Smoking Tobacco: Never Assessed Interpersonal Safety Answer Date Record ed Physically Hurt Never 08/16/2020 Verbally Threaten Not on file 08/16/2020 Sex and Gender Information Value Date Recorded Sex Assigned at Not on file Gender Identity Not on file Sexual Orientation Not on file Plan of Treatment Not on file Care Teams Airframe And Power Plant Mechanic Relationship Specialty Start Date End Date Racquel Galvan NP [facility] [address] [place] [address] PCP - General 08/03/20
--- OUTSIDE RECORDS SUMMARY | 2024-06-23 01:22 | XMS_ITS | Encounter Summary ---
Author Organization [facility] Address [address] [place] [address] Care Team Providers Care Health Safety Specialist Name Role Phone Racquel Galvan PEAR PICKER Primary Care Provider [phone] Encounter Details Date Type Department Care Team (Late st Contact Info) Description 08/26/2021 Lab Requisition [facility] Pathology & Laboratory Medicine - [address] [address] Outr Resulting Lab, Provider Social History Tobacco [...] Surface Ag Negative Negative 08/28/2021 12:38 EDT [facility] Hep C Antibody Negative Negative 08/28/2021 12:38 EDT [facility] Hepatitis A Antibody, IgM Negative Negative 08/28/2021 12:38 EDT [facility] Comment:The results of this assay can be falsely lowered due to the consumption of Biotin. Hepatitis B Core Ab, Total Negative Negative 08/28/2021 12:38 EDT [facility] Blood VENOUS BLOOD / Unknown 08/25/2021 13:55 EDT 08/27/2021 17:04 EDT Provider Outr Resulting Lab CHEMISTRY & BLOOD GAS ORDERABLES Performing Organization Address City/State/[facility] Co de Phone Number [facility] [address] [place] [address] documented in this encounter Visit Diagnoses Not on filedocumented in this encounter Care Teams Health Safety Specialist Relationship Specialty Start Date End Date Racquel [place] [address] [place] [address] PCP - General 08/03/20 documented as of this encounter
--- OUTSIDE RECORDS SUMMARY | 2024-06-23 01:22 | XMS_ITS | Encounter Summary ---
Author Organization [facility] Address [address] [place] [address] Care Team Providers Care Assurance Manager Name Role Phone Unavailable Primary Care Provider Unavailabl e Encounter Details Date Type Department Care Team (Late st Contact Info) Description 03/30/2004 Results Only [facility] - Maple conversion [address] [place] [address] Maren Oglesby, NED [address] [place] [address] Social History Tobacco Use Types [...] ? GUNNER GORDILLO ? Accession #: ? [id number] : ? 1965 (Age: 38) ??F ?Collect Date: ? 03/30/2004 Location: ? [facility] ? Receive Date: ? 04/04/2004 Provider: ?MAREN OGLESBY LICENSED SALES PRODUCER Copy to: ? Specimen/Source: ?ThinPrep Pap Test, [...] NP PATHOLOGY ORDERABLE S [facility] MAYO [address] [place] [address] documented in this encounter Visit Diagnoses Not on filedocumented in this encounter
--- OUTSIDE RECORDS SUMMARY | 2024-06-23 01:22 | XMS_ITS | Encounter Summary ---
Author Organization [facility] Address [address] [place] [address] Care Team Providers Care Shoe Repair Cobbler Name Role Phone Aimee Fernando MD Primary Care Provider [phone] Encounter Details Date Type Department Care Team (Late st Contact Info) Description 07/20/2019 Results Only [facility] [phone] Racquel Galvan NP [address] [place], [place] [phone] Social History Tobacco Use Types Packs/Day Years [...] ? GUNNER CORONA ? Accession #: ? [id number] ? : ? 1965 (Age: 53) ??F ?Collect Date: ? 07/20/2019 ? Location: ? [facility] ? Receive Date: ? 07/21/2019 ? Provider: RACQUEL GALVAN DIRECTOR INTERNAL CONTROL Copy to: ? Final Report SPECIMEN ADEQUACY [...] types 16,18,31,33,35, 39,45,51,52,56,58, 59,66, and 68 by net c developer mediated amplification. Comments Document reviewed and electronically signed by: ? System Interface ? Report date: 07/24/2019 By the signature above, the attending physician certifies that he/she has personally conducted a gross and/or microscopic examination of the described specimens and rendered or confirmed the above diagnosis. End of Report [facility] 07/20/2019 07/21/2019 Racquel Galvan DIRECTOR INTERNAL CONTROL PATHOLOGY ORDERABLES [facility] [address] [place] [address] documented in this encounter Visit Diagnoses Not on filedocumented in this encounter Care Teams Shoe Repair Cobbler Relationship Specialty Start Date End Date Aimee Fernando MD [address] [place] [address] PCP - General 11/28/12 08/02/20 documented as of this encounter
--- OUTSIDE RECORDS SUMMARY | 2024-06-23 01:22 | XMS_ITS | Encounter Summary ---
Author Organization [facility] Address [address] [place] [address] Care Team Providers Care Engineer Name Role Phone Unavailable Primary Care Provider Unavailabl e Encounter Details Date Type Department Care Team (Late st Contact Info) Description 11/20/2012 Results Only [facility] - [facility] ([facility] [address] [place], [place] [address] Lazara Ann, [facility] [address] [place] [phone] Social History Tobacco Use Types Packs/Day Years [...] ? GUNNER GORDILLO ? Accession #: ? [id number] ? : ? 1965 (Age: 47) ??F ?Collect Date: ? 11/20/2012 ? Location: ? [facility] ? Receive Date: ? 11/21/2012 ? Provider: LAZARA ANN FOOD SERVICE TEAM MEMBER Copy to: ? Final Report SPECIMEN ADEQUACY [...] 33,35,39,45,51,52, 56,58,59,66, and 68 is detected by heat treat inspector mediated amplification. High and intermediate risk HPV [...] Report [facility]O 11/20/2012 11/21/2012 Lazara Ann FOOD SERVICE TEAM MEMBER PATHOLOGY ORDERABLES Performing Organization Address City/State/[facility] Co de Phone Number ARMANDO MAYO [address] [place] [address] documented in this encounter Visit Diagnoses Not on filedocumented in this encounter
--- OUTSIDE RECORDS SUMMARY | 2024-06-23 01:22 | XMS_ITS | Encounter Summary ---
Author Organization [facility] Address [address] [place] [address] Care Team Providers Care Airport Operations Crew Member Name Role Phone Unavailable Primary Care Provider Unavailabl e Encounter Details Date Type Department Care Team (Late st Contact Info) Description 10/19/2002 Results Only [facility] - Maple conversion [address] [place] [address] Sadaf Davenport, NED Social History Tobacco Use [...] ? GUNNER GORDILLO ? Accession #: ? [id number] : ? 1965 (Age: 37) ??F ?Collect Date: ? 10/19/2002 Location: ? [facility] ? Receive Date: ? 10/20/2002 Provider: ?SADAF DAVENPORT SENIOR BUSINESS OBJECTS DEVELOPER Copy to: ? Specimen/Source: ?ThinPrep Pap Test, [...] Davenport NP PATHOLOGY ORDERABLES [facility] [address] [place] [address] documented in this encounter Visit Diagnoses Not on filedocumented in this encounter
--- OUTSIDE RECORDS SUMMARY | 2024-06-23 01:22 | XMS_ITS | Encounter Summary ---
Author Organization [facility] [place] [address] Care Team Providers Care Parking Attendant Name Role Phone Aimee Fernando MD Primary Care Provider [phone] Encounter Details Date Type Department Care Team (Late st Contact Info) Description 07/10/2006 [place] [phone] Malik Krause MD OBSTETRICS & GYNECOLOGY Social [...] 9:42 AM EDT) Surgical Pathology Report [id number] ? Location: The signing pathologist has (i) [...] Malik Krause MD PATHOLOGY/CYTOLOGY O RDERABLES [facility] documented in this encounter Visit Diagnoses Not on filedocumented in this encounter Care Teams Parking Attendant Relationship Specialty Start Date End Date Aimee Fernando MD [address] [place] [address] PCP - General 09/26/10 documented as of this encounter
--- OUTSIDE RECORDS SUMMARY | 2024-06-23 01:22 | XMS_ITS | Encounter Summary ---
Author Organization [facility] Address [address] [place] [address] Care Team Providers Care Car Body Designer Name Role Phone VandanacurlyRacquel roberts NED Primary Care Provider [phone] Encounter Details Date Type Department Care Team (Late st Contact Info) Description 05/12/2022 Lab Requisition [facility] Pathology & Laboratory Medicine - [facility] [address] [place] [address] Femi Cruz, [facility] [address] [place] [address] Encounter for other general examination [...] explore management options, if applicable. 05/15/2022 9:10 [facility] Final Diagnosis A. SKIN OF ARM, RIGHT UPPER, SHAVE BIOPSY: - Superficial portion of skin with features suggestive of verruca vulgaris. See comment. 05/15/2022 9:10 [facility] Diagnosis Comment The biopsy is somewhat superficial, transected through the stratum spinosum. Where the epidermis is represented, the findings are suggestive of a verruca vulgaris. However, the superficial nature precludes definitive assessment. Deeper levels have been examined on blocks A1 and A2.. 05/15/2022 9:10 [facility] Attestation By the signature below, the attending physician certifies that they have 1) personally conducted a gross and/or microscopic examination of the described specimen(s), and/or personally interpreted the results of laboratory testing of the described specimen(s), and 2) personally rendered or confirmed the above diagnosis. 05/15/2022 9:10 [facility] at 0910 Clinical History Inflamed skin tag raised hyperkeratotic lesion on R flank 05/15/2022 9:10 [facility] Gross Description A. [...] A2. MARIJA LOVETT(ASCP) 05/14/2022 8:32 05/15/2022 9:10 [facility] Performing Lab [facility] 05/15/2022 9:10 [facility] Scanned Images 05/15/2022 9:10 [facility] Tissue TISSUE SPECIMEN FROM SKIN / Unknown 05/11/2022 9:00 EDT 05/12/2022 10:03 EDT Femi Cruz RPA PATHOLOGY ORDERAB LES [facility] [address] [place] [address] documented in this encounter Visit Diagnoses Diagnosis Encounter for other general examination documented in this encounter Care Teams Car Body Designer Relationship Specialty Start Date End Date Racquel Galvan NP [address] [place] [address] PCP - General 08/03/20 documented as of this encounter
--- OUTSIDE RECORDS SUMMARY | 2024-06-23 01:22 | XMS_ITS | Encounter Summary ---
Author Organization [facility] Address [address] [place] [address] Care Team Providers Care Blower Mechanic Name Role Phone Racquel Galvan NED Primary Care Provider [phone] Encounter Details Date Type Department Care Team (Late st Contact Info) Description 08/03/2020 Lab Requisition [facility] Pathology & Laboratory Medicine - [address] [address] Azael Shah MD [address] [place] [address] Encounter for other general examination Social History [...] endometrium with tubal metaplasia. 08/08/2020 9:22 EDT [facility] Attestation There was significant resident/fellow involvement in the diagnostic evaluation of this case. By the signature below, the attending physician certifies that they have personally conducted a gross and/or microscopic examination of the described specimens and rendered or confirmed the above diagnosis. 08/08/2020 9:22 EDT [facility] at 0922 Clinical History PMB, fibroid uterus 08/08/2020 9:22 EDT [facility] Gross Description A. Received in formalin labelled with proper patient identification (initials G, L) and endometrial Bx is an aggregate of dark brown cloudy focally ellington clear mucus (1.3 x 1.1 x 0.3 cm). Entirely submitted in A1-A2. Grayson Dean 8:38 08/08/2020 9:22 EDT [facility] Resident/Charbel w: Kiran Kearns MD 08/08/2020 9:22 EDT [facility] Performing Lab [facility] 08/08/2020 9:22 EDT [facility] Scanned Images 08/08/2020 9:22 EDT [facility] Tissue ENTIRE ENDOMETRIUM / Unknown 08/03/2020 14:30 EDT 08/03/2020 22:50 EDT Azael Shah MD PATHOLOGY ORDERABLES [facility] [address] [place] [address] documented in this encounter Visit Diagnoses Diagnosis Encounter for other general examination documented in this encounter Care Teams Blower Mechanic Relationship Specialty Start Date End Date Racquel [place] [address] [place] [address] PCP - General 08/03/20 documented as of this encounter
--- OUTSIDE RECORDS SUMMARY | 2024-06-23 01:22 | XMS_ITS | Encounter Summary ---
Author Organization [facility] Address [address] [place] [address] Care Team Providers Care Spine Specialist Name Role Phone Unavailable Primary Care Provider Unavailabl e Encounter Details Date Type Department Care Team (Late st Contact Info) Description 07/20/2005 Results Only [facility] - Maple conversion [address] [place] [address] Misha Ann, [facility] [address] [place] [phone] Social History Tobacco Use Types Packs/Day Years [...] ? GUNNER GORDILLO ? Accession #: ? [id number] : ? 1965 (Age: 39) ??F ?Collect Date: ? 07/20/2005 Location: ? [facility] ? Receive Date: ? 07/23/2005 Provider: ?MISHA ANN WOOD SCIENCE PROFESSOR Copy to: ? Specimen/Source: ?ThinPrep Pap Test, Cervix/Endocervix, processed on Shake ThinPrep Imaging System, with manual evaluation Last [...] of Report [facility] 07/20/2005 07/23/2005 Misha nAn WOOD SCIENCE PROFESSOR PATHOLOGY ORDERABLES [facility] MAYO [address] [place] [address] documented in this encounter Visit Diagnoses Not on filedocumented in this encounter
--- OUTSIDE RECORDS SUMMARY | 2024-06-23 01:22 | XMS_ITS | Clinical Summary ---
Author Organization [facility] [place] [address] Care Team Providers Care Traffic Control Technician Name Role Phone Aimee Fernando MD Primary Care Provider [phone] Allergies Active Allergy Reactions Criticality Noted Date [...] - Influenza standard series) 07/05/2024 Care Teams Traffic Control Technician Relationship Specialty Start Date End Date Aimee Fernando MD [address] [place] [address] PCP - General 09/26/10
--- OUTSIDE RECORDS SUMMARY | 2024-06-23 01:22 | XMS_ITS | Encounter Summary ---
Author Organization [facility] Address [address] [place] [address] Care Team Providers Care Numerical Control Programmer Name Role Phone Unavailable Primary Care Provider Unavailabl e Encounter Details Date Type Department Care Team (Late st Contact Info) Description 10/03/2007 Results Only [address] [address] Aimee Fernando MD [address] [place] [address] Social History Tobacco Use Types Packs/Day Years [...] ? GUNNER GORDILLO ? Accession #: ? [id number] : ? 1965 (Age: 42) ??F ?Collect Date: ? 10/03/2007 Location: ? [facility] ? Receive Date: ? 10/07/2007 Provider: ?AIMEE FERNANDO MD Copy to: ? Specimen/Source: ?ThinPrep Pap Test, Endocervix, processed on [facility] ThinPrep Imaging System, with manual evaluation Last [...] Fernando MD PATHOLOGY ORDERABLES Performing Organization Address City/State/[facility] Co de Phone Number ARMANDO MAYO [address] [place] [address] documented in this encounter Visit Diagnoses Not on filedocumented in this encounter
--- OUTSIDE RECORDS SUMMARY | 2024-06-23 01:22 | XMS_ITS | Encounter Summary ---
Author Organization [facility] Address [address] [place] [address] Care Team Providers Care Professor Of Philosophy Name Role Phone Unavailable Primary Care Provider Unavailabl e Encounter Details Date Type Department Care Team (Late st Contact Info) Description 11/26/2012 Results Only [facility] [phone] Courtney Valencia, DO [address] [place] [address] Social History Tobacco Use Types [...] ? GUNNER GORDILLO ? Accession #: ? [id number] ? : ? 1965 (Age: 47) ??F [...] a variable amount of melanin pigment. ??(Dr. Ferguson)/[facility] Document reviewed and electronically signed by: RADHA [...] sections and (3)-tips, reverse en face. ??(John Peter)/[facility] End of Report [facility] MAYO 11/26/2012 21:5 4 EST 11/26/2012 21:54 EST Courtney Valencia DO PATHOLOGY ORDERABLES Performing Organization Address City/State/[facility] Co de Phone Number ARMANDO [address] [address] documented in this encounter Visit Diagnoses Not on filedocumented in this encounter
--- OUTSIDE RECORDS SUMMARY | 2024-06-23 01:22 | XMS_ITS | Encounter Summary ---
Author Organization [facility] Address [address] [place] [address] Care Team Providers Care Airplane Cover Maker Name Role Phone Unavailable Primary Care Provider Unavailabl e Encounter Details Date Type Department Care Team (Late st Contact Info) Description 08/07/2005 Results Only [facility] - Maple conversion [address] [place] [address] Fahad Lyons, DO [address] [facility] [address] [place], [place] [address] Social History Tobacco Use Types Packs/Day Years [...] ? GUNNER GORDILLO ? Accession #: ? [id number] ? : ? 1965 (Age: 40) ??F ? Collect Date: ? 08/07/2005 ? Location: ? [facility] ? Receive Date: ? 08/08/2005 ? Provider: FAHAD LYONS DO Copy to: ASHLEE GRIGGS QUANTITATIVE ASSOCIATE ? Final Pathologic Diagnosis: ? Breast, right [...] submitted entirely as (A1) to (A3). ??(Dr. Darling)/[facility] End of Report [facility] MAYO 08/07/2005 08/08/2005 15: 26 EDT Fahad Lyons DO PATHOLOGY ORDER STACY [facility] MAYO [address] [place] [address] documented in this encounter Visit Diagnoses Not on filedocumented in this encounter
--- OUTSIDE RECORDS SUMMARY | 2024-06-23 01:22 | XMS_ITS | Encounter Summary ---
Author Organization [facility] [place] [address] Care Team Providers Care Accredited Legal Secretary Name Role Phone Aimee Fernando MD Primary Care Provider [phone] Encounter Details Date Type Department Care Team (Late st Contact Info) Description 02/05/2007 [place] [phone] Malik Krause MD OBSTETRICS & GYNECOLOGY Social [...] 4:42 PM EDT) Surgical Pathology Report [id number] ? Location: The signing pathologist has (i) [...] MD PATHOLOGY/CYTOLOGY O RDERABLES Performing Organization Address City/State/[facility] Co de Phone Number [facility] documented in this encounter Visit Diagnoses Not on filedocumented in this encounter Care Teams Accredited Legal Secretary Relationship Specialty Start Date End Date Aimee Fernando MD [address] [place] [address] PCP - General 09/26/10 documented as of this encounter
--- OUTSIDE RECORDS SUMMARY | 2024-06-23 01:22 | XMS_ITS | Encounter Summary ---
Author Organization [facility] Address [facility] [place] [address] Care Team Providers Care Distributor Advertising Material Name Role Phone Aimee Fernando MD Primary Care Provider [phone] Encounter Details Date Type Department Care Team (Late st Contact Info) Description 12/31/2006 Orders Only Obstetrics [place] [phone] Susan Fierro [facility] [place] [address] Social History Tobacco Use Types Packs/Day Years [...] 2:53 PM EST) Surgical Pathology Report [id number] ? Location: The signing pathologist has (i) [...] report in rendering the final pathologic diagnosis. [facility] 12/31/2006 2:53 PM EST Susan Fierro [facility] PATHOLOGY/CYTO LOGY ORDERABLES [facility] documented in this encounter Visit Diagnoses Not on filedocumented in this encounter Care Teams Distributor Advertising Material Relationship Specialty Start Date End Date Aimee Fernando MD [address] [place] [address] PCP - General 09/26/10 documented as of this encounter
--- OUTSIDE RECORDS SUMMARY | 2024-06-23 01:22 | XMS_ITS | Clinical Summary ---
Author Organization [facility] Address [address] [place] [address] Care Team Providers Care Marquetry Worker Name Role Phone Racquel Galvan NP Primary Care Provider [phone] Social History Tobacco Use Types Packs/Day Years [...] COVID-19 Vaccine ( season) 2023 Care Teams Marquetry Worker Relationship Specialty Start Date End Date Racquel Galvan NP [address] [place] [address] PCP - General 08/03/20
--- OUTSIDE RECORDS SUMMARY | 2024-06-23 01:22 | XMS_ITS | Encounter Summary ---
Author Organization [facility] Address [address] [place] [address] Care Team Providers Care Manager Of Community Relations Name Role Phone Aimee Fernando MD Primary Care Provider [phone] Encounter Details Date Type Department Care Team (Late st Contact Info) Description 12/08/2013 Results Only [facility] Laboratory Services - [facility] ([facility] [address] [place], [place] [address] Lazara Ann, [facility] [address] [place] [phone] Social History Tobacco Use Types Packs/Day [...] ? GUNNER GORDILLO ? Accession #: ? [id number] ? : ? 1965 (Age: 48) ??F ?Collect Date: ? 12/08/2013 ? Location: ? [facility] ? Receive Date: ? 12/09/2013 ? Provider: LAZARA ANN [facility] Copy to: AIMEE FERNANDO MD ? Final [...] types 16,18,31,33,35, 39,45,51,52,56,58, 59,66, and 68 by soil expert mediated amplification. Comments Document reviewed and electronically signed by: ? System Interface ? Report date: 12/17/2013 By the signature above, the attending physician certifies that he/she has personally conducted a gross and/or microscopic examination of the described specimens and rendered or confirmed the above diagnosis. End of Report [facility] 12/08/2013 12/09/2013 Lazara Ann DERRICK BOAT OPERATOR PATHOLOGY ORDERABLES Performing Organization Address City/State/[facility] Co de Phone Number [facility] [address] [place] [address] documented in this encounter Visit Diagnoses Not on filedocumented in this encounter Care Teams Manager Of Community Relations Relationship Specialty Start Date End Date Aimee Fernando MD [address] [place] [phone] PCP - General 11/28/12 08/02/20 documented as of this encounter
--- NOTE | 2024-07-21 | DI.MAMMO_ITS ---
Exam(s) MAMMO SCREENING EXAM: MAMMO SCREENING CLINICAL HISTORY: SCREENING MAMMO, Z12.31. TECHNIQUE: Bilateral full field digital CC and MLO mammographic images were obtained with 3D tomosyn thesis and utilizing computer aided detection (CAD). COMPARISON: Prior mammograms were reviewed. Prior ultrasound March 2023 also reviewed FINDINGS: There has been no significant change in the appearance and distribution of the fibroglandular tissue. Dominant nodule in the upper quadrant of the right breast remains unchanged from prior mammograms. Previously described asymmetric tissue posteriorly in left breast also appears unchanged There are no new spiculated masses. There are numerous benign-appearing microcalcifications in the breast. However, posteriorly in the l eft breast there is a microcalcification group which appears slightly increased from prior studies. Should undergo further investigation. There is no significant architectural distortion nor skin thickening-retraction. IMPRESSION: 1. Stable benign-appearing right breast findings. 2. Microcalcification group in the left breast located 8 cm in from the nipple on the MLO view and 9 cm in from the nipple on the CC view which should undergo spot compression 2D Mag views as well as st raight lateral view. BI-RADS Category 0 - Incomplete: Need additional imaging evaluation Breast Density - Category C - Heterogeneously dense Breast density Category C or D implies that the patient has dense breast tissue. Dense breast tissue can make it harder to find cancer on a mammogram. Dense breast tissue is also associated with an incr eased risk of breast cancer. This information about the result of the mammogram report was provided to the patient to raise their awareness. Use this report when you speak with the patient about their risks for breast cancer, which includes their family history. At that time, you may recommend additional screening tests (Ultrasoun d or MRI) as these tests may add significant information. A negative radiographic report should not delay biopsy if a dominant or clinically suspicious mass is present. Up to ten percent of cancers are not identified on mammography. A negative report may reinforce clinical impression. Adenosis and dense breasts may obscure an underlying neoplasm. False positive reports average 6 to 10%. Patient will receive a letter notifying them of these results.
--- NOTE | 2024-07-21 | DI.CTLCSR_ITS ---
Exam(s) CT CHEST LUNG CANCER SCREEN EXAM: CT CHEST LUNG CANCER SCREEN CLINICAL HISTORY: SMOKER, F17.200. TECHNIQUE: Imaging Protocol: Low Dose Technique CONTRAST MATERIAL: None COMPARISON: No exams were available for comparison FINDINGS: CHEST: LUNGS: There few tiny benign granulomas in both lung fletcher. There are no ominous pulmonary nodules. The previously present bilateral ground-glass infiltrates have resolved. There presently no conflue nt infiltrates and there are no pleural effusions. MEDIASTINUM: There is no obvious hilar nor mediastinal adenopathy. CARDIAC: Heart size is normal. There is no pericardial effusion.Caliber of the thoracic aorta is wit hin normal limits. OTHER: Right breast nodule again noted. Measures 3 x 2.5 cm. OSSEOUS: No significant osseous lesions.No fractures.. IMPRESSION: 1. No ominous pulmonary nodules 2. Previously present ground-glass infiltrates in both lung fletcher have resolved. There are no pleur al effusions. 3. Lung RADS Cat 1S - Negative: No nodules and definitely benign nodules. Other: Clinically Significa nt or Potentially Clinically Significant Findings (non lung cancer) Right breast nodule evident which measures 3 x 2.5 cm Lung-RADS 1.0 CATEGORIES: Category 0 - Prior chest CT exam(s) being located for comparison. Category 1 - Annual screening in 12 months. No nodules or definitely benign nodules. Category 2 - Annual screening in 12 months. Benign appearance. Nodules with low likelihood of becomin g active cancer. Category 3 - 6-month follow-up. Probably benign. Short-term follow-up suggested. Nodules with low lik elihood of becoming active cancer. Category 4A - 3-month follow-up and CT/PET if >8 mm in size. Suspicious finding. Findings which requi re additional testing. Category 4B - Findings which require additional testing and tissue sampling. Category 4X - Category 3 or 4 nodules with additional features or imaging findings that increases the suspicion of malignancy. Modifier S- Potentially clinically significant findings (non lung cancer) RADIATION DOSE DELIVERED: 30.25mGy.cm Total DLP DATA REPOSITORY: All CT scans at this facility are submitted to the National Radiology Data Registry (NRDR) Dose Index Registry (DIR) with the [employer] (ACR). RADIATION OPTIMIZATION: All CT scans at this facility use at least one of these dose optimization te chniques: automated exposure control; mA and/or kV adjustment per patient size (includes targeted exa ms where dose is matched to clinical indication); or iterative reconstruction.
== END 2024-07-21 01:25 ==
PROVIDERS: PCP Physician Assistant; Visit Provider Physician Assistant
DX: Z12.31 Encounter for screening mammogram for malignant neoplasm of breast (principal); Z12.2 Encounter for screening for malignant neoplasm of respiratory organs; F17.210 Nicotine dependence, cigarettes, uncomplicated
CPT/HCPCS: 71271; 77063; 77067

== ENCOUNTER 2024-07-24 00:25 | Outpatient (CLI) | payer MEDICAID, SELFPAY ==
--- NOTE | 2024-07-24 | DI.MAMMO_ITS ---
Exam(s) MAMMO SCREEN CALL BACK UNI EXAM: MAMMO SCREEN CALL BACK UNI CLINICAL HISTORY: F/U MAMMO, MICROCALCIFICATION GROUP LT BREAST. TECHNIQUE: Craniocaudal and mediolateral oblique spot compression digital Mammography views cc and M LO magnification views and direct lateral view of the leftbreast including Tomosynthesis. COMPARISON: 21 July 2024 and exams back to 2014. FINDINGS: Mammography/Tomosynthesis: Masses: None seen. Architectural Distortion: None seen. Microcalcifictions: No suspicious pleomorphic-type are seen. Stable appearing coarse, benign calcif ications in the upper outer quadrant. Skin Thickening/Nipple Retraction: None. IMPRESSION: 1. No evidence of malignancy is noted. 2. Unless there is more urgent need, follow-up screening mammography is recommended, as per [place] [employer] guidelines. 3. Benign calcifications in the upper outer quadrant of left breast. BI-RADS Category 2 - Benign Findings Breast Density - Category C - Heterogeneously dense A mammogram that demonstrates density of C or D indicates the patient's breast tissue is dense. Dense breast tissue is very common and is not abnormal, but dense breast tissue can make it harder to find cancer on a mammogram. Also, dense breast tissue may increase their breast cancer risk. This informa tion about the result of the mammogram report was provided to the patient to raise their awareness. U se this report when you speak with the patient about their risks for breast cancer, which includes th eir family history. At that time, you may recommend for more screening tests (Ultrasound or MRI) as t hey might be useful based on their risk. A negative radiographic report should not delay biopsy if a dominant or clinically suspicious mass is present. Up to ten percent of cancers are not identified on mammography. A negative report may reinforce clinical impression. Adenosis and dense breasts may obscure an underlying neoplasm. False positive reports average 6 to 10%. Patient will receive a letter notifying them of these results.
--- OUTSIDE RECORDS SUMMARY | 2024-07-24 00:27 | XMS_ITS | Encounter Summary ---
Author Organization [facility] Address [address] [place] [address] Care Team Providers Care Relay Mechanic Name Role Phone Unavailable Primary Care Provider Unavailabl e Encounter Details Date Type Department Care Team (Late st Contact Info) Description 11/26/2012 Results Only [facility] [phone] Corutney Valencia, DO [address] [place] [address] Social History Tobacco Use Types [...] ? GUNNER GORDILLO ? Accession #: ? [id number] ? : ? 1965 (Age: 47) ??F [...] a variable amount of melanin pigment. ??(Dr. Ferguson)/[facility] Document reviewed and electronically signed by: [...] sections and (3)-tips, reverse en face. ??(John Peter)/[facility] End of Report ARMANDO MAYO 11/26/2012 21:5 4 EST 11/26/2012 21:54 EST Courtney Valencia DO PATHOLOGY ORDERABLES Performing Organization Address City/State/[facility] Co de Phone Number ARMANDO [address] [address] documented in this encounter Visit Diagnoses Not on filedocumented in this encounter
--- OUTSIDE RECORDS SUMMARY | 2024-07-24 00:27 | XMS_ITS | Encounter Summary ---
Author Organization [facility] Address [address] [place] [address] Care Team Providers Care Market Master Name Role Phone Racquel Galvan SENIOR WEB SERVICES DEVELOPER Primary Care Provider [phone] Encounter Details Date Type Department Care Team (Late st Contact Info) Description 05/26/2021 Lab Requisition [facility] Pathology & Laboratory Medicine - [address] [address] Outr Resulting Lab, Provider Social History Tobacco [...] Outr Resulting Lab MICROBIOLOGY - GENERAL ORDERABLES [facility] [address] [place] [address] * COVID-19 TESTING (05/26/2021 10:35 EDT) COVID-19 rt-PCR Result Negative Negative 05/27/2021 14:11 EDT [facility] Comment: This test has [...] performed using the brina SARS-CoV-2 assay (Renetta [employer] on the Brina 6800 System Performing Lab Brina [address] [facility] Lab 05/27/2021 14:11 EDT [facility] Swab 05/26/2021 10:3 5 EDT 05/26/2021 20:54 EDT Provider Outr Resulting Lab MICROBIOLOGY - GENERAL ORDERABLES [facility] [address] [place] [address] documented in this encounter Visit Diagnoses Not on filedocumented in this encounter Care Teams Market Master Relationship Specialty Start Date End Date Racquel Galvan [place] [address] PCP - General 08/03/20 documented as of this encounter
--- OUTSIDE RECORDS SUMMARY | 2024-07-24 00:27 | XMS_ITS | Encounter Summary ---
Author Organization [facility] Address [address] [place] [address] Care Team Providers Care Brain Surgeon Name Role Phone Unavailable Primary Care Provider Unavailabl e Encounter Details Date Type Department Care Team (Late st Contact Info) Description 10/19/2002 Results Only [facility] - Maple conversion [address] [place] [address] Sadaf Davenport, NED Social History Tobacco Use [...] when reading/interpreti ng unformatted reports. Name: ? SHAN GORDILLOA Aidan ? Accession #: ? [id number] : ? 1965 (Age: 37) ??F ?Collect Date: ? 10/19/2002 Location: ? [facility] ? Receive Date: ? 10/20/2002 Provider: ?SADAF DAVENPORT BENCH INSPECTOR Copy to: ? Specimen/Source: ?ThinPrep Pap Test, [...] Davenport NP PATHOLOGY ORDERABLES ARMANDO MAYO [address] [place] [address] documented in this encounter Visit Diagnoses Not on filedocumented in this encounter
--- OUTSIDE RECORDS SUMMARY | 2024-07-24 00:27 | XMS_ITS | Encounter Summary ---
Author Organization [facility] Address [address] [place] [address] Care Team Providers Care Plastic Surgery Assistant Name Role Phone Unavailable Primary Care Provider Unavailabl e Encounter Details Date Type Department Care Team (Late st Contact Info) Description 07/20/2005 Results Only [facility] - Maple conversion [address] [place] [address] Misha Ann, [facility] [address] [place] [phone] Social History Tobacco Use Types Packs/Day Years [...] ? GUNNER GORDILLO ? Accession #: ? [id number] : ? 1965 (Age: 39) ??F ?Collect Date: ? 07/20/2005 Location: ? [facility] ? Receive Date: ? 07/23/2005 Provider: ?MISHA ANN TAIL DOGGER Copy to: ? Specimen/Source: ?ThinPrep Pap Test, Cervix/Endocervix, processed on [employer] ThinPrep Imaging System, with manual evaluation Last [...] Report ARMANDO MAYO 07/20/2005 07/23/2005 Misha Ann TAIL DOGGER PATHOLOGY ORDERABLES ARMANDO MAYO [address] [place] [address] documented in this encounter Visit Diagnoses Not on filedocumented in this encounter
--- OUTSIDE RECORDS SUMMARY | 2024-07-24 00:27 | XMS_ITS | Clinical Summary ---
Author Organization [facility] [place] [address] Care Team Providers Care Loom Checker Name Role Phone Aimee Fernando MD Primary Care Provider [phone] Allergies Active Allergy Reactions Criticality Noted Date [...] 2) 2017 Advance Directive 2022 Covid-19 Vaccine ( - season) 2024 Influenza (Flu) vaccine (1 o f 1 - Influenza standard series) 07/05/2024 Care Teams Loom Checker Relationship Specialty Start Date End Date Aimee Fernando MD [address] [place] [address] PCP - General 09/26/10
--- OUTSIDE RECORDS SUMMARY | 2024-07-24 00:27 | XMS_ITS | Encounter Summary ---
Author Organization [facility] Address [address] [place] [address] Care Team Providers Care Acid Patroller Name Role Phone Unavailable Primary Care Provider Unavailabl e Encounter Details Date Type Department Care Team (Late st Contact Info) Description 10/20/2010 Results Only [address] [address] Aimee Fernando MD [address] [place] [address] Social History Tobacco Use Types Packs/Day Years [...] GUNNER GORDILLO S ? Accession #: ? [id number] ? : ? 1965 (Age: 45) ??F [...] 16:10 ? End of Report ? ARMANDO AMYO 10/20/2010 10/23/2010 Aimee Fernando MD PATHOLOGY ORDERABLES ARMANDO MAYO [address] [place] [address] documented in this encounter Visit Diagnoses Not on filedocumented in this encounter
--- OUTSIDE RECORDS SUMMARY | 2024-07-24 00:27 | XMS_ITS | Encounter Summary ---
Author Organization [facility] Address [facility] [place] [address] Care Team Providers Care Unit Manager Name Role Phone Aimee Fernando MD Primary Care Provider [phone] Encounter Details Date Type Department Care Team (Late st Contact Info) Description 12/31/2006 Orders Only Obst[place] [phone] Susan Fieror [facility] OBSTETRICS [place] [address] Social History Tobacco Use Types Packs/Day Years [...] 2:53 PM EST) Surgical Pathology Report [id number] ? Location: The signing pathologist has (i) [...] report in rendering the final pathologic diagnosis. [facility] 12/31/2006 2:53 PM EST Susan Fierro [facility] PATHOLOGY/CYTO LOGY ORDERABLES [facility] documented in this encounter Visit Diagnoses Not on filedocumented in this encounter Care Teams Unit Manager Relationship Specialty Start Date End Date Aimee Fernando MD [address] [place] [address] PCP - General 09/26/10 documented as of this encounter
--- OUTSIDE RECORDS SUMMARY | 2024-07-24 00:27 | XMS_ITS | Encounter Summary ---
Author Organization [facility] Address [address] [place] [address] Care Team Providers Care Director Of Resource Development Name Role Phone Unavailable Primary Care Provider Unavailabl e Encounter Details Date Type Department Care Team (Late st Contact Info) Description 11/20/2012 Results Only [facility] Laboratory Services - [facility] [address] [place], [place] [address] Lazara Ann, [facility] [address] [place] [phone] Social History Tobacco Use Types Packs/Day Years [...] ? GUNNER GORDILLO ? Accession #: ? [id number] ? : ? 1965 (Age: 47) ??F ?Collect Date: ? 11/20/2012 ? Location: ? [facility] ? Receive Date: ? 11/21/2012 ? Provider: LAZARA ANN CAFETERIA OR LUNCHROOM CHECKER Copy to: ? Final Report SPECIMEN ADEQUACY [...] 33,35,39,45,51,52, 56,58,59,66, and 68 is detected by ekg/ecg technician mediated amplification. High and intermediate risk HPV [...] Report ARMANDO MAYO 11/20/2012 11/21/2012 Lazara Ann CAFETERIA OR LUNCHROOM CHECKER PATHOLOGY ORDERABLES Performing Organization Address City/State/[facility] Co de Phone Number ARMANDO MAYO [address] [place] [address] documented in this encounter Visit Diagnoses Not on filedocumented in this encounter
--- OUTSIDE RECORDS SUMMARY | 2024-07-24 00:27 | XMS_ITS | Encounter Summary ---
Author Organization [facility] Address [address] [place] [address] Care Team Providers Care Editor Managing Newspaper Name Role Phone Racquel Galvan TRANSPLANTER Primary Care Provider [phone] Encounter Details Date Type Department Care Team (Late st Contact Info) Description 08/26/2021 Lab Requisition [facility] Pathology & Laboratory Medicine - [address] [address] Outr Resulting Lab, Provider Social History Tobacco [...] Surface Ag Negative Negative 08/28/2021 12:38 EDT [facility] Hep C Antibody Negative Negative 08/28/2021 12:38 EDT [facility] Hepatitis A Antibody, IgM Negative Negative 08/28/2021 12:38 EDT [facility] Comment:The results of this assay can be falsely lowered due to the consumption of Biotin. Hepatitis B Core Ab, Total Negative Negative 08/28/2021 12:38 EDT [facility] Blood VENOUS BLOOD / Unknown 08/25/2021 13:55 EDT 08/27/2021 17:04 EDT Provider Outr Resulting Lab CHEMISTRY & BLOOD GAS ORDERABLES Performing Organization Address City/State/[facility] Co de Phone Number [facility] [address] [place] [address] documented in this encounter Visit Diagnoses Not on filedocumented in this encounter Care Teams Editor Managing Newspaper Relationship Specialty Start Date End Date Racquel Galvan NP [place] [address] PCP - General 08/03/20 documented as of this encounter
--- OUTSIDE RECORDS SUMMARY | 2024-07-24 00:27 | XMS_ITS | Referral Summary ---
Author Organization [facility] Address [address] [place] [address] Care Team Providers Care Sprayer Leather Name Role Phone Janemalcomoksana Racquel MARINO Primary Care Provider [phone] Social History Tobacco Use Types Packs/Day Years Used Date Smoking Tobacco: Never Assessed Interpersonal Safety Answer Date Record ed Physically Hurt Never 08/16/2020 Verbally Threaten Not on file 08/16/2020 Sex and Gender Information Value Date Recorded Sex Assigned at Not on file Gender Identity Not on file Sexual Orientation Not on file Plan of Treatment Not on file Care Teams Sprayer Leather Relationship Specialty Start Date End Date Racquel Galvan NP [facility] [address] [place] [address] PCP - General 08/03/20
--- OUTSIDE RECORDS SUMMARY | 2024-07-24 00:27 | XMS_ITS | Encounter Summary ---
Author Organization [facility] [place] [address] Care Team Providers Care Candy Cooker Helper Name Role Phone Aimee Fernando MD Primary Care Provider [phone] Encounter Details Date Type Department Care Team (Late st Contact Info) Description 07/10/2006 [place] [phone] Malik Krause MD OBSTETRICS & GYNECOLOGY Social [...] 9:42 AM EDT) Surgical Pathology Report [id number] ? Location: The signing pathologist has (i) [...] Malik Krause MD PATHOLOGY/CYTOLOGY O RDERABLES [facility] documented in this encounter Visit Diagnoses Not on filedocumented in this encounter Care Teams Candy Cooker Helper Relationship Specialty Start Date End Date Aimee Fernando MD [address] [place] [address] PCP - General 09/26/10 documented as of this encounter
--- OUTSIDE RECORDS SUMMARY | 2024-07-24 00:27 | XMS_ITS | Encounter Summary ---
Author Organization [facility] Address [address] [place] [address] Care Team Providers Care Marble Mechanic Helper Name Role Phone Aimee Fernando MD Primary Care Provider [phone] Encounter Details Date Type Department Care Team (Late st Contact Info) Description 12/08/2013 Results Only [facility] Laboratory Services - [facility] ([facility]) [address] [place], [place] [address] Lazara Ann, [facility] [address] [place] [phone] Social History Tobacco Use Types Packs/Day [...] ? GUNNER GORDILLO ? Accession #: ? [id number] ? : ? 1965 (Age: 48) ??F ?Collect Date: ? 12/08/2013 ? Location: ? [facility] ? Receive Date: ? 12/09/2013 ? Provider: LAZARA ANN [facility] Copy to: AIMEE FERNANDO MD ? Final [...] types 16,18,31,33,35, 39,45,51,52,56,58, 59,66, and 68 by industrial engineering professor mediated amplification. Comments Document reviewed and electronically signed by: ? System Interface ? Report date: 12/17/2013 By the signature above, the attending physician certifies that he/she has personally conducted a gross and/or microscopic examination of the described specimens and rendered or confirmed the above diagnosis. End of Report [facility] 12/08/2013 12/09/2013 Lazara Ann DIRECTOR TARGETED MARKETING PATHOLOGY ORDERABLES Performing Organization Address City/State/[facility] Co de Phone Number [facility] [address] [place] [address] documented in this encounter Visit Diagnoses Not on filedocumented in this encounter Care Teams Marble Mechanic Helper Relationship Specialty Start Date End Date Aimee Fernando MD [address] [place] [phone] PCP - General 11/28/12 08/02/20 documented as of this encounter
--- OUTSIDE RECORDS SUMMARY | 2024-07-24 00:27 | XMS_ITS | Encounter Summary ---
Author Organization [facility] Address [address] [place] [address] Care Team Providers Care Primer Inserting Machine Operator Name Role Phone Aimee Fernando MD Primary Care Provider [phone] Encounter Details Date Type Department Care Team (Late st Contact Info) Description 07/20/2019 Results Only [facility] [phone] Racquel Galvan NP [address] [place], [place] [phone] Social History Tobacco Use Types Packs/Day Years [...] ? GUNNER CORONA ? Accession #: ? [id number] ? : ? 1965 (Age: 53) ??F ?Collect Date: ? 07/20/2019 ? Location: ? [facility] ? Receive Date: ? 07/21/2019 ? Provider: RACQUEL GALVAN CAR ELECTRONICS INSTALLER Copy to: ? Final Report SPECIMEN ADEQUACY [...] types 16,18,31,33,35, 39,45,51,52,56,58, 59,66, and 68 by bobbin marker mediated amplification. Comments Document reviewed and electronically signed by: ? System Interface ? Report date: 07/24/2019 By the signature above, the attending physician certifies that he/she has personally conducted a gross and/or microscopic examination of the described specimens and rendered or confirmed the above diagnosis. End of Report [facility] 07/20/2019 07/21/2019 Racquel Galvan CAR ELECTRONICS INSTALLER PATHOLOGY ORDERABLES [facility] [address] [place] [address] documented in this encounter Visit Diagnoses Not on filedocumented in this encounter Care Teams Primer Inserting Machine Operator Relationship Specialty Start Date End Date Aimee Fernando MD [address] [place] [address] PCP - General 11/28/12 08/02/20 documented as of this encounter
--- OUTSIDE RECORDS SUMMARY | 2024-07-24 00:27 | XMS_ITS | Encounter Summary ---
Author Organization [facility] Address [address] [place] [address] Care Team Providers Care Marine Extension Agent Name Role Phone Unavailable Primary Care Provider Unavailabl e Encounter Details Date Type Department Care Team (Late st Contact Info) Description 03/30/2004 Results Only [facility] - Maple conversion [address] [place] [address] Maren Oglesby, NED [address] [place] [address] Social History Tobacco Use Types [...] ? GUNNER GORDILLO ? Accession #: ? [id number] : ? 1965 (Age: 38) ??F ?Collect Date: ? 03/30/2004 Location: ? [facility] ? Receive Date: ? 04/04/2004 Provider: ?MAREN OGLESBY ORTHOPEDIC SHOE MAKER Copy to: ? Specimen/Source: ?ThinPrep Pap Test, [...] NP PATHOLOGY ORDERABLE S ARMANDO MAYO [address] [place] [address] documented in this encounter Visit Diagnoses Not on filedocumented in this encounter
--- OUTSIDE RECORDS SUMMARY | 2024-07-24 00:27 | XMS_ITS | Encounter Summary ---
Author Organization [facility] Address [address] [place] [address] Care Team Providers Care Roll Forming Supervisor Name Role Phone Racquel Galvan NED Primary Care Provider [phone] Encounter Details Date Type Department Care Team (Late st Contact Info) Description 08/03/2020 Lab Requisition [facility] Pathology & Laboratory Medicine - [address] [address] Azael Shah MD [address] [place] [address] Encounter for other general examination Social History [...] tubal metaplasia. 08/08/2020 9:22 EDT [facility] Attestation There was significant resident/fellow involvement in the diagnostic evaluation of this case. By the signature below, the attending physician certifies that they have personally conducted a gross and/or microscopic examination of the described specimens and rendered or confirmed the above diagnosis. 08/08/2020 9:22 EDT [facility] at 0922 Clinical History PMB, fibroid uterus 08/08/2020 9:22 EDT [facility] Gross Description A. Received in formalin labelled with proper patient identification (initials G, L) and endometrial Bx is an aggregate of dark brown cloudy focally ellington clear mucus (1.3 x 1.1 x 0.3 cm). Entirely submitted in A1-A2. Grayson Dean 8:38 08/08/2020 9:22 EDT [facility] Resident/Charbel w: Kiran Kearns MD 08/08/2020 9:22 EDT [facility] Performing Lab [facility] 08/08/2020 9:22 EDT [facility] Scanned Images 08/08/2020 9:22 EDT [facility] Tissue ENTIRE ENDOMETRIUM / Unknown 08/03/2020 14:30 EDT 08/03/2020 22:50 EDT Azael Shah MD PATHOLOGY ORDERABLES [facility] [address] [place] [address] documented in this encounter Visit Diagnoses Diagnosis Encounter for other general examination documented in this encounter Care Teams Roll Forming Supervisor Relationship Specialty Start Date End Date Racquel Galvan [place] [address] PCP - General 08/03/20 documented as of this encounter
--- OUTSIDE RECORDS SUMMARY | 2024-07-24 00:27 | XMS_ITS | Encounter Summary ---
Author Organization [facility] Address [address] [place] [address] Care Team Providers Care Hand Welt Butter Name Role Phone Unavailable Primary Care Provider Unavailabl e Encounter Details Date Type Department Care Team (Late st Contact Info) Description 10/03/2007 Results Only [address] [address] Aimee Fernando MD [address] [place] [address] Social History Tobacco Use Types Packs/Day Years [...] ? GUNNER GORDILLO ? Accession #: ? [id number] : ? 1965 (Age: 42) ??F ?Collect Date: ? 10/03/2007 Location: ? [facility] ? Receive Date: ? 10/07/2007 Provider: ?AIMEE FERNANDO MD Copy to: ? Specimen/Source: ?ThinPrep Pap Test, Endocervix, processed on [employer] ThinPrep Imaging System, with manual evaluation Last Menstrual Period: ? 09/30/07 Other: ? HPVA - HPV testing requested if ASC-US on the current ThinPrep Pap test. ? SPECIMEN ADEQUACY ? Satisfactory for Evaluation - transformation zone component present GENERAL CATEGORIZATION ? Negative for Intraepithelial Lesion or Malignancy ? Document reviewed and electronically signed by: ? Henok Kwan, SCOORRO(ASCP) ? Report Date: ??10/09/2007 09:53 End of Report ARMANDO MAYO 10/03/2007 10/07/2007 Aimee Fernando MD PATHOLOGY ORDERABLES Performing Organization Address City/State/[facility] Co de Phone Number ARMANDO MAYO [address] [place] [address] documented in this encounter Visit Diagnoses Not on filedocumented in this encounter
--- OUTSIDE RECORDS SUMMARY | 2024-07-24 00:27 | XMS_ITS | Encounter Summary ---
Author Organization [facility] Address [address] [place] [address] Care Team Providers Care Red Hat Open Stack Administrator Name Role Phone VandanacurlyRacquel roberts NED Primary Care Provider [phone] Encounter Details Date Type Department Care Team (Late st Contact Info) Description 05/12/2022 Lab Requisition [facility] Pathology & Laboratory Medicine - [facility] [address] [place] [address] Femi Cruz, [facility] [address] [place] [address] Encounter for other general examination [...] explore management options, if applicable. 05/15/2022 9:10 [facility] Final Diagnosis A. SKIN OF ARM, RIGHT UPPER, SHAVE BIOPSY: - Superficial portion of skin with features suggestive of verruca vulgaris. See comment. 05/15/2022 9:10 [facility] Diagnosis Comment The biopsy is somewhat superficial, transected through the stratum spinosum. Where the epidermis is represented, the findings are suggestive of a verruca vulgaris. However, the superficial nature precludes definitive assessment. Deeper levels have been examined on blocks A1 and A2.. 05/15/2022 9:10 [facility] Attestation By the signature below, the attending physician certifies that they have 1) personally conducted a gross and/or microscopic examination of the described specimen(s), and/or personally interpreted the results of laboratory testing of the described specimen(s), and 2) personally rendered or confirmed the above diagnosis. 05/15/2022 9:10 [facility] at 0910 Clinical History Inflamed skin tag raised hyperkeratotic lesion on R flank 05/15/2022 9:10 [facility] Gross Description A. Received [...] A2. MARIJA LOVETT(ASCP) 05/14/2022 8:32 05/15/2022 9:10 [facility] Performing Lab [facility] 05/15/2022 9:10 [facility] Scanned Images 05/15/2022 9:10 [facility] Tissue TISSUE SPECIMEN FROM SKIN / Unknown 05/11/2022 9:00 EDT 05/12/2022 10:03 EDT Femi Cruz RPA PATHOLOGY ORDERAB LES [facility] [address] [place] [address] documented in this encounter Visit Diagnoses Diagnosis Encounter for other general examination documented in this encounter Care Teams [employer] Open Stack Administrator Relationship Specialty Start Date End Date Racquel Galvan NP [address] [place] [address] PCP - General 08/03/20 documented as of this encounter
--- OUTSIDE RECORDS SUMMARY | 2024-07-24 00:27 | XMS_ITS | Encounter Summary ---
[facility] [place] [address] Care Team Providers Care Counter Pocket Sewer Name Role Phone Aimee Fernando MD Primary Care Provider [phone] Encounter Details Date Type Department Care Team (Late st Contact Info) Description 02/05/2007 [place] [id number] Malik Krause MD OBSTETRICS & GYNECOLOGY Social [...] 4:42 PM EDT) Surgical Pathology Report [id number] ? Location: The signing pathologist has (i) [...] MD PATHOLOGY/CYTOLOGY O RDERABLES Performing Organization Address City/State/[facility] Co de Phone Number [facility] documented in this encounter Visit Diagnoses Not on filedocumented in this encounter Care Teams Counter Pocket Sewer Relationship Specialty Start Date End Date Aimee Fernando MD [address] [place] [address] PCP - General 09/26/10 documented as of this encounter
--- OUTSIDE RECORDS SUMMARY | 2024-07-24 00:27 | XMS_ITS | Encounter Summary ---
Author Organization [facility] Address [address] [place] [address] Care Team Providers Care Chaser Apprentice Name Role Phone Unavailable Primary Care Provider Unavailabl e Encounter Details Date Type Department Care Team (Late st Contact Info) Description 08/07/2005 Results Only [facility] [address] [place] [address] Fahad Lyons, DO [address] [facility] [address] [place], [place] [address] Social History Tobacco Use Types Packs/Day Years [...] ? GUNNER GORDILLO ? Accession #: ? [id number] ? : ? 1965 (Age: 40) ??F ? Collect Date: ? 08/07/2005 ? Location: ? [facility] ? Receive Date: ? 08/08/2005 ? Provider: FAHAD LYONS DO Copy to: ASHLEE GRIGGS SOLDERING MACHINE TENDER ? Final Pathologic Diagnosis: ? Breast, right [...] submitted entirely as (A1) to (A3). ??(Dr. Darling)/[facility] End of Report ARMANDO MAYO 08/07/2005 08/08/2005 15: 26 EDT Fahad Lyons DO PATHOLOGY ORDER STACY ARMANDO MAYO [address] [place] [address] documented in this encounter Visit Diagnoses Not on filedocumented in this encounter
--- OUTSIDE RECORDS SUMMARY | 2024-07-24 00:27 | XMS_ITS | Clinical Summary ---
Author Organization [facility] Address [address] [place] [address] Care Team Providers Care Automatic Buffer Name Role Phone Racquel Galvan NP Primary Care Provider [phone] Social History Tobacco Use Types Packs/Day Years [...] COVID-19 Vaccine ( season) 2023 Care Teams Automatic Buffer Relationship Specialty Start Date End Date Racquel Galvan NP [address] [facility] [place] [address] PCP - General 08/03/20
== END 2024-07-24 00:45 ==
PROVIDERS: PCP Physician Assistant; Visit Provider Physician Assistant
DX: Z12.31 Encounter for screening mammogram for malignant neoplasm of breast (principal); R92.8 Other abnormal and inconclusive findings on diagnostic imaging of breast
CPT/HCPCS: 77063; 77067

== ENCOUNTER 2025-03-27 23:16 | Inpatient (IN) | payer MEDICAID, SELFPAY ==
--- NOTE | 2025-03-27 23:15 | RT.EKG_ITS ---
APPROVED REPORT Exam: Resting ECG Reason for Exam: chest discomfort Patient Location: E HR:77 bpm ECG Measurements Heart Rate 77 AXIS NV 143 P 49 QRSd 91 QRS 44 QT 406 T 50 QTc 460 Conclusion Sinus rhythm...normal P axis, V-rate 60- 99 I have reviewed and interpreted ECG and agree with software generated interpretation.
[2025-03-27 23:28] VITALS: BP 206/88; PULSE 66; RESP 20; O2SAT 100
--- NOTE | 2025-03-27 23:38 | W.ED.GENAD ---
Discharge Plan Discharge Details Chief Complaint: Anxiety Clinical Impression: Acute hyponatremia, Alcohol withdrawal, Hypomagnesemia Primary Care Provider: Femi Cruz ED Provider: Alan Leslie Home Meds and New Rx's Prescriptions: No Action budesonide-formoterol [Symbicort] 160-4.5 mcg/actuation HFA aerosol inhaler 2 puff inhalation BID (DME) Aerochamber MV Spacer See Rx Instructions .Route Qty: 1 0RF Rx Instructions: As directed albuterol sulfate [Ventolin HFA] 90 mcg/actuation HFA aerosol inhaler 2 puff inhalation QID PRN fluticasone propionate [Flonase Allergy Relief] 50 mcg/actuation spray,suspension 2 spray intranasal DAILY Qty: 16 12RF Rx Instructions: administer into each nostril alprazolam 0.5 mg tablet Patient Comments: TAKE ONE TABLET BY MOUTH EVERY DAY NEEDED furosemide 20 mg tablet Patient Comments: TAKE ONE TABLET BY MOUTH EVERY DAY chlordiazepoxide HCl 25 mg capsule 25 mg PO PRN Patient Comments: took today at 0530, 1030, 1530 lisinopril 10 mg tablet 10 mg PO DAILY Qty: 30 0RF HPI General Date/Time Provider Initiated Documentation: 03/27/25 23:18. HPI Narrative: This is a 59-year-old female with a past medical history of alcoholism, hypertension, hypothyroidism, reactive airway disease, who presents today for feeling anxious with concern for symptoms of withdrawal. Patient states that she had been sober for some time, but starting about 9 months ago she began drinking again, she states she goes through a 12 pack at least every day. Her last drink was at noon this afternoon which is about 11 hours ago. Since then she admits to growing sensation of anxiety, tremulousness, nausea with a single episode of vomiting. She denies fever or chills. She states that she feels quite situationally uncomfortable right now. She denies any homicidal or suicidal ideations. She denies any auditory or visual hallucinations. No other complaints at this time. No other modifying factors. She denies any history of seizures. She has utilized Librium in the past to help with withdrawals. Related Data Home Medications ?Medication ?Instructions ?Recorded ?Confirmed budesonide-formoterol HFA 160 2 puff inhalation BID 09/20/22 03/28/25 mcg-4.5 mcg/actuation aerosol inhaler (Symbicort) inhalational spacing device #1 ea 09/20/22 03/02/24 (Aerochamber MV spacer) albuterol sulfate 90 mcg/actuation 2 puff inhalation QID PRN 09/25/23 03/28/25 aerosol inhaler (Ventolin HFA) fluticasone propionate 50 2 spray intranasal DAILY #16 grams 10/10/23 03/28/25 mcg/actuation nasal spray,suspension (Flonase Allergy Relief) chlordiazepoxide HCl 25 mg capsule 25 mg PO PRN 03/02/24 03/28/25 lisinopril 10 mg tablet 10 mg PO DAILY #30 tabs 03/03/24 03/28/25 alprazolam 0.5 mg tablet mg 03/28/25 furosemide 20 mg tablet mg 03/28/25 Previous Rx's ?Medication ?Instructions ?Recorded inhalational spacing device #1 ea 09/20/22 (Aerochamber MV spacer) fluticasone propionate 50 2 spray intranasal DAILY #16 grams 10/10/23 mcg/actuation nasal spray,suspension (Flonase Allergy Relief) lisinopril 10 mg tablet 10 mg PO DAILY #30 tabs 03/03/24 Allergies Allergy/AdvReac Type Severity Reaction Status Date / Time trazodone Allergy Severe Other (See Unverified 03/28/25 00:05 Comment) erythromycin base AdvReac Severe stomache Unverified 03/28/25 00:05 (Erythromycin Base) pain/nausea diphenhydramine HCl (From AdvReac Intermediate Jittery Unverified 03/28/25 00:05 Tylenol PM) General Stated Complaint: Anxiety KAMILA: 3 Exam Narrative Exam Narrative: 1.Const: Well-nourished, Well-developed, appearing stated age 2.Eyes: PERRL, no conjunctival injection, and symmetrical lids. 3.ENT: Atraumatic external nose and ears. Dry MM. Neck: Symmetric, trachea midline, No thyromegaly. 4.CVS: +S1/S2, Peripheral pulses 2+ and equal in all extremities. Brisk capillary refill in all extremities. 5.RESP: Unlabored respiratory effort. Clear to auscultation bilaterally. No wheezes rales or rhonchi 6.GI: Soft, Nontender/Nondistended, No hepatosplenomegaly. No guarding or rebound. 7.MSK: Normocephalic/Atraumatic, Extremities w/o deformity or ttp No cyanosis or clubbing, Normal movement of all extremities, but somewhat tremulous. 8.Skin: Warm, Dry. No rashes or lesions. 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 Sensation grossly intact, no focal neurologic deficits. 10.Psych: (AAO) x3. Quite anxious appearing, CIWA score at this time is around 17 points. Course Vital Signs Vital signs: Vital Signs Pulse 66 03/27/25 23:28 Respiratory Rate 20 03/27/25 23:28 Blood Pressure 206/88 H 03/27/25 23:28 Pulse Oximetry 100 03/27/25 23:28 Pulse 66 03/27/25 23:28 Respiratory Rate 20 03/27/25 23:28 Blood Pressure 206/88 H 03/27/25 23:28 Pulse Oximetry 100 03/27/25 23:28 Oxygen Delivery Method Room Air 03/27/25 23:28 Oxygen Flow Rate 0 03/27/25 23:28 Pain Level 2 03/27/25 23:28 Medical Decision Making This is a 59-year-old female with a past medical history of alcoholism, hypertension, hypothyroidism, reactive airway disease, who presents today for feeling anxious with concern for symptoms of withdrawal. Patient states that she had been sober for some time, but starting about 9 months ago she began drinking again, she states she goes through a 12 pack at least every day. Her last drink was at noon this afternoon which is about 11 hours ago. Since then she admits to growing sensation of anxiety, tremulousness, nausea with a single episode of vomiting. She denies fever or chills. She states that she feels quite situationally uncomfortable right now. She denies any homicidal or suicidal ideations. She denies any auditory or visual hallucinations. No other complaints at this time. No other modifying factors. She denies any history of seizures. She has utilized Librium in the past to help with withdrawals. Exam demonstrates tremulousness, dry mucous membranes, anxiety on assessment. Lungs are clear. CIWA score calculates out to around 17 at this time. Concern for alcohol withdrawal. Will give IV Ativan, Librium, rehydrate. Patient may require admission if symptoms cannot be controlled with benzos and outpatient Librium course. No chest pain to suggest ACS. No abdominal pain to suggest acute abdominal process. 12:56 AM Laboratory workup shows evidence of hyponatremia at 127, hypochloremia at 90, hypomagnesemia at 1.4. Calcium stable, no anion gap. TSH is high at 7.3 however the free T4 is normal at 1.03. Alcohol level is currently 11.9. After IV Ativan and 50 Librium the patient is still feeling somewhat anxious and nervous but is feeling notably better than before. However with the comorbidities of the electrolyte derangements, need for IV replacement, and her alcohol withdrawal symptoms I do not feel that she would be a great candidate for discharge for outpatient management. I do feel that she would benefit from continued IV hydration for the hyponatremia, replacement of electrolytes, and continued medical management for her withdrawal symptoms at this stage. Discussed the case with the hospitalist Dr. Chavez, he agrees with the assessment and plan. He does request starting phenobarb, which I do think is reasonable given her continued symptoms. Patient will be admitted for further management, and electrolyte replacement. I have extensively reviewed the treatment plan with the patient. I have addressed all patient concerns at this time. I have also discussed the plan with the admitting physician and they agree with the current assessment and plan and have agreed to assume responsibility for the patient. All parties demonstrate verbal understanding and agreement with our assessment and plan at this time. The documentation in this chart was dictated using [employer] dictation software. Please excuse any dictation errors. Quality:SDOH Health Related Social Needs: No Data to Display Critical Care Time Critical Care Time Critical Care Time: Yes Total Critical Care Time: 30 Attestation: Upon my evaluation, this patient had a high probability of imminent or life-threatening deterioration, which required my direct attention, intervention, and personal management. I have personally provided 30 minutes of critical care time exclusive of time spent on separately billable procedures. Time includes review of laboratory data, radiology results, discussion with consultants, and monitoring for potential decompensation. Interventions were performed as documented. [facility] All Active Problems (Updated 03/28/25 @ 00:58 by Alan Leslie DO) Hypomagnesemia (Acute) Alcohol withdrawal (Acute) Acute hyponatremia (Acute) Tobacco abuse (Chronic) Alcoholism in remission (Chronic) Leukocytosis (leucocytosis) (Acute) Hyponatremia (Acute) Sore mouth (Acute) Oral lesion (Acute) Hypertension (Chronic) Hypothyroidism (Chronic) Breast mass, right (Chronic) Mass of uterus (Chronic) Post-menopausal bleeding (Acute) Medical History Pain in left shoulder Fatigue Exposure to communicable disease Allergic rhinitis Acute upper respiratory infection Headache Asthma Lower abdominal pain Acute pharyngitis Tobacco dependence Candidiasis of skin Pain in right knee Disorder of skin Hypokalemia Alcohol abuse Polyneuropathy Abnormal weight loss Stomatitis Cough Abdominal pain Chronic sinusitis Steatosis of liver COPD (chronic obstructive pulmonary disease) Alcoholic hepatitis Acute sinusitis Uterine leiomyoma Bronchitis Intramural uterine fibroid Smoker Anxiety Insomnia Obesity Chronic rhinitis Surgical History Ligation of fallopian tube section X 2 Biopsy of breast Family History Mother Coronary heart disease Social History Smoking/Tobacco Use Status: Current every day Tobacco Type: cigarettes Years smoked: 34 Smoking risk assessment performed?: Yes Alcohol Intake: former Drug use: Never Substance use type: does not use Details: quit drinking in October Housing: house Do you feel safe at home: Yes Do you feel safe in your relationship?: Yes History History Para 2 Hx # Term Pregnancies Multiple births Hx # Pregnancies Ectopic pregnancies AB induced Hx Number of Living Children 2 AB spontaneous
[2025-03-27] MEDS: chlordiazePOXIDE 25 MG CAP 50 MG PO (23:51)
[2025-03-27] MEDS: Lactated Ringers 1,000 ML 1000 ML IV (23:51)
[2025-03-27] MEDS: LORazepam 20 MG/10 ML VIAL IVP (23:53)
[2025-03-27] MEDS: Ondansetron 4 MG/2 ML VIAL IVP (23:54)
[2025-03-28] VITALS (29 sets, daily range): BP systolic 104–165; BP diastolic 43–98; PULSE 75–98; RESP 14–27; TEMP 37.1–37.4; O2SAT 86–95
[2025-03-28 00:03] LABS: Abs Immature Grans 0.04 10^3/uL (0.0-0.06); Absolute Eosinophil Count 0.12 10^3/uL (0.0-0.7); Absolute Lymphocyte Count 1.33 10^3/uL (1.2-3.4); Absolute Monocyte Count 0.66 10^3/uL (0.1-0.8); Absolute Neutrophil Count 7.98 10^3/uL (1.2-6.7); Eosinophils % 1.2 %; HCT 45.3 % (36.0-46.0); HGB 16.3 g/dL (11.2-15.7); Immature Grans % 0.4 %; MCH 32.5 pg (27.0-33.0); MCV 90 fL (80-95); MPV 10.6 fL (8.0-11.0); Monocytes % 6.5 %; Neutrophils % 77.9 %; Platelet Count 167 10^3/uL (130-400); RBC 5.02 10^6/uL (3.93-5.22); RDW 12.2 % (11.7-14.6); RDW-SD 40.3 fL; WBC 10.23 10^3/uL (4.4-10.8)
[2025-03-28 00:28] LABS: ALT 146 U/L (14-59); AST 114 U/L (15-37); Albumin 3.7 g/dL (3.4-5.0); Alkaline Phosphatase 123 U/L (46-116); Anion Gap 8.5 mmol/L (3-11); BUN 3 mg/dL (7-18); Bilirubin, Total 0.7 mg/dL (0.2-1.0); CO2 28.5 mmol/L (21.0-32.0); CREATININE 0.9 mg/dL (0.55-1.02); Calcium 9.1 mg/dL (8.5-10.1); Chloride 90 mmol/L (98-107); ETHANOL BLOOD 11.9 mg/dL (<10); Estimated GFR 74.57 (mL/min/1.73m2); Glucose 126 mg/dL (74-106); Lipase 34 U/L (<78); Potassium 3.7 mmol/L (3.5-5.1); Sodium 127 mmol/L (136-145); Troponin I 9 ng/L (<or=51)
[2025-03-28 00:31] LABS: Magnesium 1.4 mg/dL (1.8-2.4)
[2025-03-28 00:48] LABS: FREE T4 1.03 ng/dL (0.76-1.46)
--- NOTE | 2025-03-28 01:07 | W.PM.HP.N ---
Date of service: 03/28/25 Time of Service: 01:07 Assessment and Plan Assessment and plan (1) Alcohol withdrawal: Start date: 03/28/25 Status: Acute Assessment and plan: This is a 59-year-old lady who has a history of alcoholism but not drinking. Several months up to 9 months prior to this admission and then the last 9 months drinking 12 pack of beer daily. She had some nausea and vomiting and was feeling tremulous and dizzy not having drank for 11 hours prior to presentation. Alcohol level was low at 11.9 in the ED. She is chronically on Xanax for anxiety especially recently but does not take it daily. She was concerned about alcohol withdrawal but has never been hospitalized for this taking Librium as an outpatient in the past with her PCP prescribing this medication. She has poor insight for successful sobriety and this may be addressed before she is discharged home. She was initiated on phenobarbital protocol and is having less symptoms but because of her daily use of Xanax, if she has increased anxiety with her alcohol withdrawal symptoms, Ativan as needed will be given at a lower dose than the benzodiazepine alcohol withdrawal protocol. Her urine drug screen was negative for any other illicit drugs. At discharge she should consider outpatient counseling at least. She is a full code. (2) Hypomagnesemia: Start date: 03/28/25 Status: Acute Assessment and plan: IV repletion and follow-up labs with further repletion if needed. This is associate with her chronic alcohol use. (3) Acute hyponatremia: Start date: 03/28/25 Status: Acute Assessment and plan: IV fluid resuscitation and cessation of alcohol long-term. This is a recurrent problem according to the patient. (4) Alcoholic hepatitis: Assessment and plan: Patient liver enzymes are elevated but does not have any evidence of ascites or chronic liver failure as of yet. I did review this with the patient. Adequate diet and cessation of alcohol should help this. (5) Tobacco abuse: Status: Chronic Assessment and plan: Patient does have chronic lung issues and does smoke. She works at the [employer]. Advised cessation. Offered nicotine patch and patient wishes. (6) Anxiety: Assessment and plan: Patient is chronically on Xanax more recently at least once daily by prescription and review of the VPMS. She is on no other illicit drugs per urine drug screen and per history. She is at risk of self treatment as she is with alcohol. Long-term counseling with cessation of alcohol would be ideal. (7) COPD (chronic obstructive pulmonary disease): Assessment and plan: Continue outpatient inhaler therapy and monitor while hospitalized off cigarettes. (8) Hypothyroidism: Status: Chronic Assessment and plan: Patient TSH is elevated and she is obese with this problem be reevaluated as an outpatient with her PCP. She is not on supplement at this time. (9) Hypertension: Status: Chronic Assessment and plan: Continue MAMIE inhibitor and Lasix daily with patient having some problems with peripheral edema as well. She has no overt history of CHF. History of Present Illness History of Present Illness Chief Complaint: Dizziness with tremors and nausea of alcohol. Narrative: This is a 59-year-old female patient who has a history of alcoholism having been sober for a long period of time but began to drink beer daily about 9 months ago. She works at a [employer] in [place], [place]. She lives with her 2 grandsons who also drink. She has a family history of alcoholism as well. She presents with not feeling well with dizziness, 1 bout of nausea and vomiting without hematemesis and having some tremors being concerned about alcohol withdrawal to the ED physician but seem to minimize that during my conversation. She states that she can stop on her own and has had been prescribed Librium in the past when she wanted to stop. This was done as an outpatient. She has never been to AA. In the ED evaluation did reveal hyponatremia and hypomagnesemia and she states that she has had problems with this in the past and she thought that these were the things that made her feel her symptoms more than alcohol withdrawal. She has never had hospitalization for alcohol withdrawal or alcohol withdrawal seizures. I did financial aid counselor her on the possibility of alcohol withdrawal seizures for several days after stopping and the need for alcohol withdrawal protocol using phenobarbital in the hospital. She does take Xanax as an outpatient but not daily and does have some anxiety. [facility] review does reveal more consistent monthly prescriptions for Xanax over the last several months but more sparse but recurrent prescriptions in the past. She also smokes and has respiratory issues on inhalers. She denies any fever or chills and has had no visual or auditory hallucinations. She has never had seizures in the past. She is willing to stay in the hospital for her electrolyte abnormality and alcohol withdrawal treatment with phenobarbital. Realizing the risk about patient withdrawal without treatment. She does not seem to have insight into long-term cessation with AA or supports in the social setting. She can discuss this with her PCP. She is a full code. Review of Systems Narrative: 13 point review of systems otherwise unrevealing or stable. Patient does take Lasix for peripheral edema and not CHF. She has had no increased edema recently but does take Lasix daily. PFSH All Active Problems Hypomagnesemia (Acute) Alcohol withdrawal (Acute) Acute hyponatremia (Acute) Tobacco abuse (Chronic) Alcoholism in remission (Chronic) Leukocytosis (leucocytosis) (Acute) Hyponatremia (Acute) Sore mouth (Acute) Oral lesion (Acute) Hypertension (Chronic) Hypothyroidism (Chronic) Breast mass, right (Chronic) Mass of uterus (Chronic) Post-menopausal bleeding (Acute) Medical History Pneumonia Pain in left shoulder Fatigue Exposure to communicable disease Allergic rhinitis Acute upper respiratory infection Headache Asthma Lower abdominal pain Acute pharyngitis Tobacco dependence Candidiasis of skin Pain in right knee Disorder of skin Hypokalemia Alcohol abuse Polyneuropathy Abnormal weight loss Stomatitis Cough Abdominal pain Chronic sinusitis Steatosis of liver COPD (chronic obstructive pulmonary disease) Alcoholic hepatitis Acute sinusitis Uterine leiomyoma Bronchitis Intramural uterine fibroid Smoker Anxiety Insomnia Obesity Chronic rhinitis Surgical History Ligation of fallopian tube section X 2 Biopsy of breast Family History Mother Coronary heart disease Social History Smoking/Tobacco Use Status: Current every day Tobacco Type: cigarettes Years smoked: 34 Smoking risk assessment performed?: Yes Alcohol Intake: former Drug use: Never Substance use type: does not use Details: quit drinking in October Housing: house Do you feel safe at home: Yes Do you feel safe in your relationship?: Yes History History Para 2 Hx # Term Pregnancies Multiple births Hx # Pregnancies Ectopic pregnancies AB induced Hx Number of Living Children 2 AB spontaneous Meds Allergies and Home Medications Allergies Allergy/AdvReac Type Severity Reaction Status Date / Time trazodone Allergy Severe Other (See Unverified 03/28/25 00:05 Comment) erythromycin base AdvReac Severe stomache Unverified 03/28/25 00:05 (Erythromycin Base) pain/nausea diphenhydramine HCl (From AdvReac Intermediate Jittery Unverified 03/28/25 00:05 Tylenol PM) Home Medications ?Medication ?Instructions ?Recorded ?Confirmed ?Type budesonide-formoterol HFA 160 2 puff inhalation BID 09/20/22 03/28/25 History mcg-4.5 mcg/actuation aerosol inhaler (Symbicort) inhalational spacing device #1 ea 09/20/22 03/28/25 Rx (Aerochamber MV spacer) albuterol sulfate 90 mcg/actuation 2 puff inhalation QID PRN 09/25/23 03/28/25 History aerosol inhaler (Ventolin HFA) fluticasone propionate 50 2 spray intranasal DAILY #16 grams 10/10/23 03/28/25 Rx mcg/actuation nasal spray,suspension (Flonase Allergy Relief) chlordiazepoxide HCl 25 mg capsule 25 mg PO PRN 03/02/24 03/28/25 History lisinopril 10 mg tablet 10 mg PO DAILY #30 tabs 03/03/24 03/28/25 Rx alprazolam 0.5 mg tablet 0.5 mg PO DAILY PRN 03/28/25 03/28/25 History furosemide 20 mg tablet 20 mg PO DAILY 03/28/25 03/28/25 History Exam Narrative Exam Narrative: General: Patient appears appropriate for age, moderately obese and darkly tanned, alert and oriented x 3 with flattened affect but good eye contact. She is in moderate distress with her alcohol withdrawal symptoms. HEENT: Normocephalic, eyes with pupils equal and reactive to light specially, extraocular movement intact and sclera anicteric. Oropharynx with dry mucosa and good dentition. Neck: Supple without JVD. Back: Stooped posture without CVA tenderness. Lungs: Bronchovesicular breath sounds diffusely with occasional coarse crackle but no focalizing rales or rhonchi. Scant expiratory wheeze without increased expiratory phase. Fair aeration. Breast: Exam deferred. Heart: Regular rate at high normal and regular rhythm. Abdomen: Obese contour, soft and nontender to palpation with no palpable hepatosplenomegaly. No guarding or rebound. Bowel sounds positive in all quadrants. Genitalia/rectal: Exam deferred. Extremities: Without clubbing, cyanosis or pitting edema. Good capillary refill and peripheral pulses intact. Skin: Darkly tanned over sun exposed areas, otherwise normal color, warm and dry. Neuro: Cranial nerves II through XII gross intact, no focalized motor deficits. No tremor. Psych: Flattened affect with depressed mood. No abnormal thought processes. Patient has a slow monotonous tone to voice. Remote and recent memory intact. Results Labs 03/28/25 05:31 03/28/25 05:31 Labs: Laboratory Results - last 24 hr 03/27/25 23:55 WBC 10.23 RBC 5.02 Hgb 16.3 H Hct 45.3 MCV 90 MCH 32.5 MCHC 36.0 RDW 12.2 Plt Count 167 MPV 10.6 Immature Gran % 0.4 Neutrophils % 77.9 Lymphocytes % 13.0 Monocytes % 6.5 Eosinophils % 1.2 Basophils % 1.0 Nucleated RBC % 0.0 Absolute Neutrophils 7.98 H Absolute Lymphocytes 1.33 Absolute Monocytes 0.66 Absolute Eosinophils 0.12 Absolute Basophils 0.10 Sodium 127 L Potassium 3.7 Chloride 90 L Carbon Dioxide 28.5 Anion Gap 8.5 BUN 3 L Creatinine 0.9 Est GFR (CKD-EPI 2020) 74.57 Glucose 126 H Calcium 9.1 Magnesium 1.4 L Total Bilirubin 0.7 AST 114 H ALT 146 H Alkaline Phosphatase 123 H Troponin I 9 Total Protein 8.0 Albumin 3.7 Lipase 34 TSH 7.30 H Free T4 1.03 Ethyl Alcohol 11.9 H Last Vital Signs Pulse 81 03/28/25 00:56 Resp 16 03/28/25 01:00 BP 165/75 H 03/28/25 00:56 Pulse Ox 93 03/28/25 00:56 PAWSS Have you Been Recently Intoxicated or Drunk Within the Last 30 days?: Yes Have you Ever Experienced Previous Episodes of Alcohol Withdrawal?: Yes Have you ever Experienced Withdrawal Seizures?: No Have you ever Experienced Delirium Tremens(DT)s?: No Have you ever undergone Alcohol Rehabilitation Treatment (i.e, inpt ot outpatient treatment programs)?: No Have you ever Experienced Blackouts?: No Have you ever Combined Alcohol with other Downers within the last 90 days?: No Have you ever Combined Alcohol with any other Substance of Abuse during the last 90 days?: No Positive Blood Alcohol level on Presentation? [PCS.BAL]: Yes Evidence of Increased Autonomic Activity (i.e. HR>120, tremor, sweating, agitation, nausea)?: No Result: 3 Time Spent Time spent with Patient: >75 minutes Time was spent: preparing to see the patient(eg.review tests), obtaining and/or reviewing separately otained hiistory, ordering medications,tests, procedures, indepentently interpreting results and counseling the patient
[2025-03-28] MEDS: Normal Saline 1,000 ML 150 ML IV ×4 (01:09→19:07)
[2025-03-28] MEDS: MAGNESIUM SULFATE 4 GM/100 ML BAG IV_INF (01:11)
[2025-03-28] MEDS: PHENobarbital 110 MG in Normal Saline 50 ML 100 MG IVPB (01:25)
--- NOTE | 2025-03-28 02:36 | W.PC.ACHO ---
Registration Status: Primary Language: Preferred Language: ED Information & Data Chief Complaint Anxiety 03/28/25 00:00 Chief Complaint Anxiety 03/27/25 23:43 Other Complaint GenMedical 03/27/25 23:28 Triage Note pt arrives per pedgabriella c/o 03/27/25 23:28 feeling shaky and anxious. Pt states she is an alcoholic who has recently stopped drinking. She reports she did have some beers this morning and last drink as NA's at noon. Medical / Surgical History (Last Reviewed 03/28/25 @ 01:07 by Zach Chavez) Pneumonia Pain in left shoulder Fatigue Exposure to communicable disease Allergic rhinitis Acute upper respiratory infection Headache Asthma Lower abdominal pain Acute pharyngitis Tobacco dependence Candidiasis of skin Pain in right knee Disorder of skin Hypokalemia Alcohol abuse Polyneuropathy Abnormal weight loss Stomatitis Cough Abdominal pain Chronic sinusitis Steatosis of liver COPD (chronic obstructive pulmonary disease) Alcoholic hepatitis Acute sinusitis Uterine leiomyoma Bronchitis Intramural uterine fibroid Smoker Anxiety Insomnia Obesity Chronic rhinitis (Last Reviewed 03/28/25 @ 01:07 by Zach Chavez) Ligation of fallopian tube section Biopsy of breast Most Recent Vital Signs Pulse 94 H 03/28/25 01:50 Pulse 94 H 03/28/25 01:50 Respiratory Rate 18 03/28/25 01:50 Respiratory Effort Normal, Non-Labored 03/28/25 00:00 Respiratory Depth Normal 03/28/25 00:00 Respiratory Pattern Normal 03/28/25 00:07 Blood Pressure 112/43 L 03/28/25 01:45 Blood Pressure Mean 65 03/28/25 01:45 Pulse Oximetry 89 L 03/28/25 01:50 Oxygen Delivery Method Room Air 03/27/25 23:28 Oxygen Flow Rate 0 03/27/25 23:28 Pain Level 0 03/28/25 02:04 Allergies trazodone Allergy (Severe, Unverified 03/28/25 00:05) Other (See Comment) doesn't remember erythromycin base (Erythromycin Base) Adverse Reaction (Severe, Unverified 03/28/25 00:05) stomache pain/nausea diphenhydramine HCl (From Tylenol PM) Adverse Reaction (Intermediate, Unverified 03/28/25 00:05) Jittery Precautions Isolation Standard precaution 03/28/25 00:00 Active Medications Generic Name Dose Route Start Last Admin Trade Name Freq PRN Reason Stop Dose Admin Magnesium Sulfate 4 gm in 100 mls @ 25 mls/hr 03/28/25 00:54 03/28/25 01:11 IV_INF 03/28/25 04:53 25 mls/hr NOW ONE Administration Sodium Chloride 1,000 mls @ 150 mls/hr 03/28/25 01:00 03/28/25 01:09 Saline 1000ml Bag IV 150 mls/hr INFUSION SUZI Administration IV IV Catheter Type [Right Peripheral IV Forearm] IV Catheter Gauge [Right 18 Forearm] Diet Orders Category Date Time Status Heart Healthy Eating [DIET] Nutrition 03/28/25 Breakfast Active Diagnostics 03/28/25 03/28/25 03/28/25 Range/Units 05:35 02:33 02:28 WBC Pending (4.4-10.8) 10^3/uL RBC Pending (3.93-5.22) 10^6/uL Hgb Pending (11.2-15.7) g/dL Hct Pending (36.0-46.0) % MCV Pending (80-95) fL MCH Pending (27.0-33.0) pg MCHC Pending (32.0-36.0) % RDW Pending (11.7-14.6) % Plt Count Pending (130-400) 10^3/uL MPV Pending (8.0-11.0) fL Immature Gran % Pending % Neutrophils % Pending % Lymphocytes % Pending % Monocytes % Pending % Eosinophils % Pending % Basophils % Pending % Nucleated RBC % (0.0-0.3) % Absolute Neutrophils Pending (1.2-6.7) 10^3/uL Absolute Lymphocytes Pending (1.2-3.4) 10^3/uL Absolute Monocytes Pending (0.1-0.8) 10^3/uL Absolute Eosinophils Pending (0.0-0.7) 10^3/uL Absolute Basophils Pending (0.0-0.2) 10^3/uL PT Pending INR Pending Sodium Pending (136-145) mmol/L Potassium Pending (3.5-5.1) mmol/L Chloride Pending (98-107) mmol/L Carbon Dioxide Pending (21.0-32.0) mmol/L Anion Gap Pending (3-11) mmol/L BUN Pending (7-18) mg/dL Creatinine Pending (0.55-1.02) mg/dL Est GFR (CKD-EPI 2020) Pending (mL/min/1.73m2) Glucose Pending (74-106) mg/dL Calcium Pending (8.5-10.1) mg/dL Phosphorus Pending Magnesium Pending (1.8-2.4) mg/dL Total Bilirubin Pending (0.2-1.0) mg/dL Conjugated Bilirubin Pending AST Pending (15-37) U/L ALT Pending (14-59) U/L Alkaline Phosphatase Pending (46-116) U/L Troponin I Cancelled (<or=51) ng/L Total Protein Pending (6.4-8.2) g/dL Albumin Pending (3.4-5.0) g/dL Lipase (<78) U/L TSH (0.36-3.74) uIU/mL Free T4 (0.76-1.46) ng/dL Ethyl Alcohol (<10) mg/dL COVID-19 Source SARS-CoV-2 (PCR) Influenza Type A (PCR) Influenza Type B (PCR) RSV (PCR) 03/28/25 03/28/25 03/27/25 Range/Units 02:04 00:28 23:55 WBC 10.23 (4.4-10.8) 10^3/uL RBC 5.02 (3.93-5.22) 10^6/uL Hgb 16.3 H (11.2-15.7) g/dL Hct 45.3 (36.0-46.0) % MCV 90 (80-95) fL MCH 32.5 (27.0-33.0) pg MCHC 36.0 (32.0-36.0) % RDW 12.2 (11.7-14.6) % Plt Count 167 (130-400) 10^3/uL MPV 10.6 (8.0-11.0) fL Immature Gran % 0.4 % Neutrophils % 77.9 % Lymphocytes % 13.0 % Monocytes % 6.5 % Eosinophils % 1.2 % Basophils % 1.0 % Nucleated RBC % 0.0 (0.0-0.3) % Absolute Neutrophils 7.98 H (1.2-6.7) 10^3/uL Absolute Lymphocytes 1.33 (1.2-3.4) 10^3/uL Absolute Monocytes 0.66 (0.1-0.8) 10^3/uL Absolute Eosinophils 0.12 (0.0-0.7) 10^3/uL Absolute Basophils 0.10 (0.0-0.2) 10^3/uL PT INR Sodium 127 L (136-145) mmol/L Potassium 3.7 (3.5-5.1) mmol/L Chloride 90 L (98-107) mmol/L Carbon Dioxide 28.5 (21.0-32.0) mmol/L Anion Gap 8.5 (3-11) mmol/L BUN 3 L (7-18) mg/dL Creatinine 0.9 (0.55-1.02) mg/dL Est GFR (CKD-EPI 2020) 74.57 (mL/min/1.73m2) Glucose 126 H (74-106) mg/dL Calcium 9.1 (8.5-10.1) mg/dL Phosphorus Magnesium 1.4 L (1.8-2.4) mg/dL Total Bilirubin 0.7 (0.2-1.0) mg/dL Conjugated Bilirubin AST 114 H (15-37) U/L ALT 146 H (14-59) U/L Alkaline Phosphatase 123 H (46-116) U/L Troponin I Cancelled 9 (<or=51) ng/L Total Protein 8.0 (6.4-8.2) g/dL Albumin 3.7 (3.4-5.0) g/dL Lipase 34 (<78) U/L TSH 7.30 H (0.36-3.74) uIU/mL Free T4 1.03 (0.76-1.46) ng/dL Ethyl Alcohol 11.9 H (<10) mg/dL COVID-19 Source Pending SARS-CoV-2 (PCR) Pending Influenza Type A (PCR) Pending Influenza Type B (PCR) Pending RSV (PCR) Pending Intake and Output - 24 Hour Total 03/27/25 23:16 thru 03/28/25 02:00 Intake Total 1050.8490 Balance 1050.8459 Weight 72.575 kg Intake: IV 1050.8462 Falls Risk Assessment History of Falls No History 03/28/25 00:00 Contributing Factors No Factors 03/28/25 00:00 Ambulatory Aids Independent 03/28/25 00:00 Tubes/Lines None 03/28/25 00:00 Gait Evaluation No gait disturbance 03/28/25 00:00 Cognition No cognitive impairment 03/28/25 00:00 Fall Total Score 0 03/28/25 00:00 Level of Risk Standard/Low Risk 03/28/25 00:00 Problems (Last Reviewed 03/28/25 @ 01:07 by Zach Chavez) Hypomagnesemia (Acute) Alcohol withdrawal (Acute) Acute hyponatremia (Acute) Tobacco abuse (Chronic) Hypertension (Chronic) Hypothyroidism (Chronic) v v v v v v v v v Sending and/or Receiving Nurses: Please use comment section below to note any information pertinent to the patient hand-off not included above. Information / Comments: Report received from: Leann Ramos RN
[2025-03-28 02:45] LABS: COVID-19 PCR Negative (Negative); Influenza A PCR Negative (Negative); Influenza B PCR Negative (Negative); RSV PCR Negative (Negative)
[2025-03-28 02:56] LABS: Source Nasopharynx
[2025-03-28] MEDS: Albuterol HFA 8 GM 60 PUFF INH IH ×3 (04:26→17:50)
[2025-03-28 05:05] LABS: Bilirubin Negative (Negative); Blood Negative (Negative); Clarity Clear (Clear); Glucose Negative (Negative); Ketones Negative (Negative); Leukocyte Esterase Negative (Negative); Nitrite Negative (Negative); Urobilinogen 0.2 mg/dL (Up to 0.2); pH 6.5 (5-8)
[2025-03-28 05:16] LABS: *AMPHETAMINES SCREEN URINE Negative (Negative); *BARBITURATES SCREEN URINE Negative (Negative); *BENZODIAZEPINES SCREEN URINE Negative (Negative); Cannabinoids THC Negative (Negative); Cocaine Screen,Urine Negative (Negative); METHADONE URINE SCREEN Negative (Negative); OPIATES URINE SCREEN Negative (Negative)
[2025-03-28] MEDS: PHENobarbital 140 MG in Normal Saline 50 ML 100 MG IVPB ×2 (05:16→08:21)
[2025-03-28 05:17] LABS: Tricyclic Antidepressants Negative (Negative)
[2025-03-28 06:13] LABS: Abs Immature Grans 0.02 10^3/uL (0.0-0.06); Absolute Basophil Count 0.07 10^3/uL (0.0-0.2); Absolute Eosinophil Count 0.19 10^3/uL (0.0-0.7); Absolute Lymphocyte Count 1.44 10^3/uL (1.2-3.4); Absolute Monocyte Count 0.51 10^3/uL (0.1-0.8); Absolute Neutrophil Count 6.76 10^3/uL (1.2-6.7); Basophils % 0.8 %; Eosinophils % 2.1 %; HCT 44.9 % (36.0-46.0); HGB 15.9 g/dL (11.2-15.7); Immature Grans % 0.2 %; MCH 32.4 pg (27.0-33.0); MCHC 35.4 % (32.0-36.0); MCV 92 fL (80-95); MPV 10.6 fL (8.0-11.0); Monocytes % 5.7 %; Neutrophils % 75.2 %; Platelet Count 163 10^3/uL (130-400); RDW 12.6 % (11.7-14.6); RDW-SD 42.5 fL; WBC 8.99 10^3/uL (4.4-10.8)
[2025-03-28 06:21] LABS: Prothrombin Time 10.4 sec (9.1-11.1)
[2025-03-28 06:35] LABS: ALT 129 U/L (14-59); AST 97 U/L (15-37); Albumin 3.3 g/dL (3.4-5.0); Alkaline Phosphatase 115 U/L (46-116); Anion Gap 6.2 mmol/L (3-11); BUN 3 mg/dL (7-18); Bilirubin, Direct 0.3 mg/dL (0.0-0.2); Bilirubin, Total 0.8 mg/dL (0.2-1.0); CO2 28.8 mmol/L (21.0-32.0); CREATININE 0.9 mg/dL (0.55-1.02); Calcium 8.7 mg/dL (8.5-10.1); Chloride 98 mmol/L (98-107); Estimated GFR 74.57 (mL/min/1.73m2); Glucose 120 mg/dL (74-106); Magnesium 3.1 mg/dL (1.8-2.4); PHOSPHORUS 3.7 mg/dL (2.6-4.7); Potassium 4.1 mmol/L (3.5-5.1); Sodium 133 mmol/L (136-145); Total Protein 7.2 g/dL (6.4-8.2)
[2025-03-28] MEDS: Budesonide/Formoterol 160/4.5 6 GM 60 PUFF INH IH ×2 (08:10→20:17)
[2025-03-28] MEDS: Lisinopril 10 MG TAB PO (08:22)
[2025-03-28] MEDS: Thiamine 100 MG TAB PO (08:22)
[2025-03-28] MEDS: Furosemide 20 MG TAB PO (08:22)
[2025-03-28] MEDS: Folic Acid 1 MG TAB PO (08:23)
[2025-03-28] MEDS: Multivitamin TAB 1 TAB PO (08:23)
[2025-03-28] MEDS: Normal Saline Flush 10 ML SYR IVP ×2 (08:25→20:15)
--- NOTE | 2025-03-28 09:11 | INITIAL_ITS ---
Date of service: 03/28/25 Time of Service: 09:11 Care Management Initial Assmt Initial Assessment Reason for Hospitalization: Acute alcohol withdrawal, hypomagnesemia Functional Status/Living Situation Patient Presentation: Zhane was lying in bed when CM met with her. She reported that she is feeling ok, and appeared to be tired. She was transitioned from the ICU to med/surge this morning. She stated that she lives in [facility] with her two grandchildren, who are 11 and 14; she is their guardian. 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 She stated that she does not feel she needs support with sobriety at this time. Per report, she is improving, but will continue to be monitored overnight. CM will continue to follow. Town of Residence: [facility] Resides with: Child (grandchildren (11 and 14); she is their guardian) Employment Status: Employed (currently on leave from work) Instrumental Activities of Daily Living (ADLs): Independent Medications Medication Management: No Issues/Barriers identified Advance Directives Advance Directives: Do you have an Advance Directive: AD On File at [facility]: N 11/21/21 10:50 Date Asked 03/12/24 03/12/24 12:28 AD Date Reviewed COLST On File at [facility] No 03/02/24 20:50 COLST Date Scanned Code Status Resuscitation Status Full Code Insurance Coverage/Financial Issues Insurance: [facility] Care Team Visit Care Team Role Provider Type Stu Castellano MD MD [facility] STAFF PHYSICIAN Femi Cruz Primary Care Provider NON-[facility] STAFF PHYSICIAN Alan Leslie DO Emergency Provider [facility] STAFF PHYSICIAN Zach Chavez Admit Provider NON-[facility] STAFF PHYSICIAN Attending Provider Discharge Potential Discharge Needs: PCP F/U Appt Anticipated Barriers to Discharge: None Identified Patient/Family Education Needs: Review discharge instructions, discuss Ask Me Three Transportation: Private vehicle Plan: Anticipate Zhane will return home once medically cleared. She will transport via private vehicle by family. She will follow up with her PCP and discharge plan of care. CM will continue to follow. Social Determinants of Health Screening Social Determinants of health last assessed in clinic: 03/28/25 Will the Patient Participate in the Screening?: Yes Do you worry about having a steady place to live?: no Problems where you live: no known problems In the past 12 months, have you had to go without electric, gas, oil or water in your home?: no 1. Within the past 12 months, we worried whether our food would run out before we got money to buy more.: Don't know/refused 2. Within the past 12 months, the food we bought just didn't last and we didn't have money to get more.: Don't know/refused Has lack of transportation kept you from medical appointments or from doing things needed for daily living?: no Has anyone in your life made you feel unsafe or unsupported?: no How hard is it for you to pay for the very basics like food, housing, medical care, and heating? Would you say it is:: Not hard at all Do you want help finding or keeping work or a job?: Yes, help keeping work If for any reason you need help with day-to-day activities such as bathing, preparing meals, shopping, managing finances, etc., do you get the help you need?: I don?t need any help How often do you feel lonely or isolated from those around you?: Never Do you speak a language other than Yoruba at home?: No Health Related Social Needs Health related social needs: problems finding work (Z56.9) Health related social needs details: Patient states requiring a doctor's note for work. PFSH All Active Problems Hypomagnesemia (Acute) Alcohol withdrawal (Acute) Acute hyponatremia (Acute) Tobacco abuse (Chronic) Alcoholism in remission (Chronic) Leukocytosis (leucocytosis) (Acute) Hyponatremia (Acute) Sore mouth (Acute) Oral lesion (Acute) Hypertension (Chronic) Hypothyroidism (Chronic) Breast mass, right (Chronic) Mass of uterus (Chronic) Post-menopausal bleeding (Acute) Medical History Pneumonia Pain in left shoulder Fatigue Exposure to communicable disease Allergic rhinitis Acute upper respiratory infection Headache Asthma Lower abdominal pain Acute pharyngitis Tobacco dependence Candidiasis of skin Pain in right knee Disorder of skin Hypokalemia Alcohol abuse Polyneuropathy Abnormal weight loss Stomatitis Cough Abdominal pain Chronic sinusitis Steatosis of liver COPD (chronic obstructive pulmonary disease) Alcoholic hepatitis Acute sinusitis Uterine leiomyoma Bronchitis Intramural uterine fibroid Smoker Anxiety Insomnia Obesity Chronic rhinitis Surgical History Ligation of fallopian tube section X 2 Biopsy of breast Family History Mother Coronary heart disease Social History Smoking/Tobacco Use Status: Current every day Tobacco Type: cigarettes Years smoked: 34 Smoking risk assessment performed?: Yes Alcohol Intake: former Drug use: Never Substance use type: does not use Details: quit drinking in October Housing: house Do you feel safe at home: Yes Do you feel safe in your relationship?: Yes History History Para 2 Hx # Term Pregnancies Multiple births Hx # Pregnancies Ectopic pregnancies AB induced Hx Number of Living Children 2 AB spontaneous
--- NOTE | 2025-03-28 10:06 | W.PC.ACHO ---
Registration Status: Primary Language: Preferred Language: ED Information & Data Chief Complaint Anxiety 03/28/25 00:00 Chief Complaint Anxiety 03/27/25 23:43 Other Complaint GenMedical 03/27/25 23:28 Triage Note pt arrives per pedis c/o 03/27/25 23:28 feeling shaky and anxious. Pt states she is an alcoholic who has recently stopped drinking. She reports she did have some beers this morning and last drink as NA's at noon. Medical / Surgical History (Last Reviewed 03/28/25 @ 06:43 by Zach Chavez) Pneumonia Pain in left shoulder Fatigue Exposure to communicable disease Allergic rhinitis Acute upper respiratory infection Headache Asthma Lower abdominal pain Acute pharyngitis Tobacco dependence Candidiasis of skin Pain in right knee Disorder of skin Hypokalemia Alcohol abuse Polyneuropathy Abnormal weight loss Stomatitis Cough Abdominal pain Chronic sinusitis Steatosis of liver COPD (chronic obstructive pulmonary disease) Alcoholic hepatitis Acute sinusitis Uterine leiomyoma Bronchitis Intramural uterine fibroid Smoker Anxiety Insomnia Obesity Chronic rhinitis (Last Reviewed 03/28/25 @ 06:43 by Zach Chavez) Ligation of fallopian tube section Biopsy of breast Most Recent Vital Signs Temperature 37.4 C 03/28/25 08:00 Temperature Source Temporal Artery Scan 03/28/25 08:00 Pulse 82 03/28/25 09:00 Pulse 82 03/28/25 09:00 Respiratory Rate 17 03/28/25 09:00 Respiratory Effort Normal 03/28/25 02:45 Respiratory Depth Normal 03/28/25 02:45 Respiratory Pattern Normal 03/28/25 02:45 Blood Pressure 159/94 H 03/28/25 08:01 Blood Pressure Mean 113 03/28/25 08:01 Pulse Oximetry 91 L 03/28/25 09:00 Oxygen Delivery Method Room Air 03/28/25 08:12 Oxygen Flow Rate 0 03/28/25 08:12 Pain Level 0 03/28/25 09:56 Allergies trazodone Allergy (Severe, Unverified 03/28/25 00:05) Other (See Comment) doesn't remember erythromycin base (Erythromycin Base) Adverse Reaction (Severe, Unverified 03/28/25 00:05) stomache pain/nausea diphenhydramine HCl (From Tylenol PM) Adverse Reaction (Intermediate, Unverified 03/28/25 00:05) Jittery Precautions Isolation Standard precaution 03/28/25 00:00 Active Medications Generic Name Dose Route Start Last Admin Trade Name Freq PRN Reason Stop Dose Admin Albuterol Sulfate 2 puff 03/28/25 02:33 03/28/25 04:26 Albuterol Hfa 8 Gm 60 Puff Inh IH 2 puffs QID PRN PRN Administration Budesonide/Formoterol Fumarate 2 puff 03/28/25 08:30 03/28/25 08:10 Budesonide/Formoterol 160/4.5 6 Gm 60 Puff Inh IH 2 puffs BID SUZI Administration Enoxaparin Sodium 40 mg 03/28/25 02:33 03/28/25 03:33 Enoxaparin 40 Mg/0.4 Ml Syr SC Not Given HS SUZI Folic Acid 1 mg 03/28/25 08:30 03/28/25 08:23 Folic Acid 1 Mg Tab PO 04/03/25 08:31 1 mg QAM SUZI Administration Furosemide 20 mg 03/28/25 08:30 03/28/25 08:22 Furosemide 20 Mg Tab PO 20 mg DAILY SUZI Administration Sodium Chloride 1,000 mls @ 150 mls/hr 03/28/25 01:00 03/28/25 04:23 Saline 1000ml Bag IV 150 mls/hr INFUSION SUZI Administration Lisinopril 10 mg 03/28/25 08:30 03/28/25 08:22 Lisinopril 10 Mg Tab PO 10 mg DAILY SUZI Administration Multivitamins 1 tab 03/28/25 08:30 03/28/25 08:23 Multivitamin Tab PO 04/03/25 08:31 1 tab QAM SUZI Administration Sodium Chloride 0 ml 03/28/25 08:30 03/28/25 08:25 Normal Saline Flush 10 Ml Syr IVP 10 ml BID SUZI Administration Thiamine HCl 100 mg 03/28/25 08:30 03/28/25 08:22 Thiamine 100 Mg Tab PO 04/03/25 08:31 100 mg QAM SUZI Administration IV IV Catheter Type [Right Peripheral IV Forearm] IV Catheter Gauge [Right 18 Forearm] Diet Orders Category Date Time Status Heart Healthy Eating [DIET] Nutrition 03/28/25 Breakfast Active Diagnostics 03/28/25 03/28/25 03/28/25 Range/Units 05:31 04:25 02:28 WBC 8.99 (4.4-10.8) 10^3/uL RBC 4.90 (3.93-5.22) 10^6/uL Hgb 15.9 H (11.2-15.7) g/dL Hct 44.9 (36.0-46.0) % MCV 92 (80-95) fL MCH 32.4 (27.0-33.0) pg MCHC 35.4 (32.0-36.0) % RDW 12.6 (11.7-14.6) % Plt Count 163 (130-400) 10^3/uL MPV 10.6 (8.0-11.0) fL Immature Gran % 0.2 % Neutrophils % 75.2 % Lymphocytes % 16.0 % Monocytes % 5.7 % Eosinophils % 2.1 % Basophils % 0.8 % Nucleated RBC % 0.0 (0.0-0.3) % Absolute Neutrophils 6.76 H (1.2-6.7) 10^3/uL Absolute Lymphocytes 1.44 (1.2-3.4) 10^3/uL Absolute Monocytes 0.51 (0.1-0.8) 10^3/uL Absolute Eosinophils 0.19 (0.0-0.7) 10^3/uL Absolute Basophils 0.07 (0.0-0.2) 10^3/uL PT 10.4 (9.1-11.1) sec INR 1.0 (0.9-1.1) Sodium 133 L (136-145) mmol/L Potassium 4.1 (3.5-5.1) mmol/L Chloride 98 (98-107) mmol/L Carbon Dioxide 28.8 (21.0-32.0) mmol/L Anion Gap 6.2 (3-11) mmol/L BUN 3 L (7-18) mg/dL Creatinine 0.9 (0.55-1.02) mg/dL Est GFR (CKD-EPI 2020) 74.57 (mL/min/1.73m2) Glucose 120 H (74-106) mg/dL Calcium 8.7 (8.5-10.1) mg/dL Phosphorus 3.7 (2.6-4.7) mg/dL Magnesium 3.1 H (1.8-2.4) mg/dL Total Bilirubin 0.8 (0.2-1.0) mg/dL Conjugated Bilirubin 0.3 H (0.0-0.2) mg/dL AST 97 H (15-37) U/L ALT 129 H (14-59) U/L Alkaline Phosphatase 115 (46-116) U/L Troponin I Cancelled (<or=51) ng/L Total Protein 7.2 (6.4-8.2) g/dL Albumin 3.3 L (3.4-5.0) g/dL Lipase (<78) U/L TSH (0.36-3.74) uIU/mL Free T4 (0.76-1.46) ng/dL Urine Color Yellow (Yellow) Urine Clarity Clear (Clear) Urine pH 6.5 (5-8) Ur Specific Lucile 1.010 (1.005-1.025) Urine Protein Negative (Neg-Trace) mg/dL Urine Ketones Negative (Negative) mg/dL Urine Blood Negative (Negative) Urine Nitrite Negative (Negative) Urine Bilirubin Negative (Negative) Urine Urobilinogen 0.2 (Up to 0.2) mg/dL Ur Leukocyte Esterase Negative (Negative) Urine Glucose Negative (Negative) mg/dL Urine Opiates Screen Negative (Negative) Urine Methadone Screen Negative (Negative) Ur Barbiturates Screen Negative (Negative) Ur Tricyclics Screen Negative (Negative) Ur Amphetamines Screen Negative (Negative) U Benzodiazepines Scrn Negative (Negative) Urine Cocaine Screen Negative (Negative) Ur THC Screen Negative (Negative) Ethyl Alcohol (<10) mg/dL COVID-19 Source SARS-CoV-2 (PCR) (Negative) Influenza Type A (PCR) (Negative) Influenza Type B (PCR) (Negative) RSV (PCR) (Negative) 03/28/25 03/28/25 03/27/25 Range/Units 02:04 00:28 23:55 WBC 10.23 (4.4-10.8) 10^3/uL RBC 5.02 (3.93-5.22) 10^6/uL Hgb 16.3 H (11.2-15.7) g/dL Hct 45.3 (36.0-46.0) % MCV 90 (80-95) fL MCH 32.5 (27.0-33.0) pg MCHC 36.0 (32.0-36.0) % RDW 12.2 (11.7-14.6) % Plt Count 167 (130-400) 10^3/uL MPV 10.6 (8.0-11.0) fL Immature Gran % 0.4 % Neutrophils % 77.9 % Lymphocytes % 13.0 % Monocytes % 6.5 % Eosinophils % 1.2 % Basophils % 1.0 % Nucleated RBC % 0.0 (0.0-0.3) % Absolute Neutrophils 7.98 H (1.2-6.7) 10^3/uL Absolute Lymphocytes 1.33 (1.2-3.4) 10^3/uL Absolute Monocytes 0.66 (0.1-0.8) 10^3/uL Absolute Eosinophils 0.12 (0.0-0.7) 10^3/uL Absolute Basophils 0.10 (0.0-0.2) 10^3/uL PT (9.1-11.1) sec INR (0.9-1.1) Sodium 127 L (136-145) mmol/L Potassium 3.7 (3.5-5.1) mmol/L Chloride 90 L (98-107) mmol/L Carbon Dioxide 28.5 (21.0-32.0) mmol/L Anion Gap 8.5 (3-11) mmol/L BUN 3 L (7-18) mg/dL Creatinine 0.9 (0.55-1.02) mg/dL Est GFR (CKD-EPI 2020) 74.57 (mL/min/1.73m2) Glucose 126 H (74-106) mg/dL Calcium 9.1 (8.5-10.1) mg/dL Phosphorus (2.6-4.7) mg/dL Magnesium 1.4 L (1.8-2.4) mg/dL Total Bilirubin 0.7 (0.2-1.0) mg/dL Conjugated Bilirubin (0.0-0.2) mg/dL AST 114 H (15-37) U/L ALT 146 H (14-59) U/L Alkaline Phosphatase 123 H (46-116) U/L Troponin I Cancelled 9 (<or=51) ng/L Total Protein 8.0 (6.4-8.2) g/dL Albumin 3.7 (3.4-5.0) g/dL Lipase 34 (<78) U/L TSH 7.30 H (0.36-3.74) uIU/mL Free T4 1.03 (0.76-1.46) ng/dL Urine Color (Yellow) Urine Clarity (Clear) Urine pH (5-8) Ur Specific Lucile (1.005-1.025) Urine Protein (Neg-Trace) mg/dL Urine Ketones (Negative) mg/dL Urine Blood (Negative) Urine Nitrite (Negative) Urine Bilirubin (Negative) Urine Urobilinogen (Up to 0.2) mg/dL Ur Leukocyte Esterase (Negative) Urine Glucose (Negative) mg/dL Urine Opiates Screen (Negative) Urine Methadone Screen (Negative) Ur Barbiturates Screen (Negative) Ur Tricyclics Screen (Negative) Ur Amphetamines Screen (Negative) U Benzodiazepines Scrn (Negative) Urine Cocaine Screen (Negative) Ur THC Screen (Negative) Ethyl Alcohol 11.9 H (<10) mg/dL COVID-19 Source Nasopharynx SARS-CoV-2 (PCR) Negative (Negative) Influenza Type A (PCR) Negative (Negative) Influenza Type B (PCR) Negative (Negative) RSV (PCR) Negative (Negative) Intake and Output - 24 Hour Total 03/27/25 23:16 thru 03/28/25 08:00 Intake Total 1936.9231 Output Total 1050 Balance 886.9231 Weight 75.8 kg Intake: IV 1686.9231 Oral 250 Output: Urine 1050 Other: Urine Color Yellow Urine Appearance Clear Urine Odor Normal Falls Risk Assessment History of Falls No History 03/28/25 02:45 Contributing Factors No Factors 03/28/25 02:45 Ambulatory Aids Independent 03/28/25 02:45 Tubes/Lines W/no contributing factors 03/28/25 02:45 Gait Evaluation W/no contributing factors 03/28/25 02:45 Cognition No cognitive impairment 03/28/25 02:45 Fall Total Score 20 03/28/25 02:45 Level of Risk Standard/Low Risk 03/28/25 02:45 Problems (Last Reviewed 03/28/25 @ 06:43 by Zach Chavez) Hypomagnesemia (Acute) Alcohol withdrawal (Acute) Acute hyponatremia (Acute) Tobacco abuse (Chronic) Hypertension (Chronic) Hypothyroidism (Chronic) v v v v v v v v v Sending and/or Receiving Nurses: Please use comment section below to note any information pertinent to the patient hand-off not included above. Information / Comments: Report received from: Manoj Cesar RN/ICU
--- NOTE | 2025-03-28 13:05 | NUR.NOTE ---
Nursing Note: brought pt from ICU to Med/Surg room 212 at 10:03 via wheelchair. Pt tolerated transfer well, asking about getting lunch. CIWA at 1, RASS -1
--- NOTE | 2025-03-28 14:09 | NUR.NOTE ---
Nursing Note: Pt verbalizing that she would love to have a cigarette. Offered a nicotine patch or nicorete gum. declined both. Encouraged to speak up if she changes her mind.
[2025-03-28] MEDS: LORazepam 1 MG TAB PO (17:23)
[2025-03-28] MEDS: Enoxaparin 40 MG/0.4 ML SYR SC (20:14)
[2025-03-29] MEDS: Normal Saline 1,000 ML 150 ML IV (02:23)
[2025-03-29 06:41] VITALS: BP 122/62; PULSE 73; RESP 14; TEMP 35.5; O2SAT 95
[2025-03-29] MEDS: Albuterol HFA 8 GM 60 PUFF INH IH (06:42)
[2025-03-29 07:09] LABS: Abs Immature Grans 0.02 10^3/uL (0.0-0.06); Absolute Basophil Count 0.05 10^3/uL (0.0-0.2); Absolute Eosinophil Count 0.22 10^3/uL (0.0-0.7); Absolute Lymphocyte Count 1.42 10^3/uL (1.2-3.4); Absolute Monocyte Count 0.51 10^3/uL (0.1-0.8); Absolute Neutrophil Count 4.31 10^3/uL (1.2-6.7); Basophils % 0.8 %; Eosinophils % 3.4 %; HCT 40.3 % (36.0-46.0); HGB 13.9 g/dL (11.2-15.7); Immature Grans % 0.3 %; Lymphocytes % 21.7 %; MCH 32.9 pg (27.0-33.0); MCHC 34.5 % (32.0-36.0); MCV 95 fL (80-95); Monocytes % 7.8 %; Platelet Count 134 10^3/uL (130-400); RBC 4.23 10^6/uL (3.93-5.22); RDW 13.1 % (11.7-14.6); RDW-SD 46.3 fL; WBC 6.53 10^3/uL (4.4-10.8)
[2025-03-29 07:30] LABS: ALT 85 U/L (14-59); AST 64 U/L (15-37); Albumin 2.8 g/dL (3.4-5.0); Alkaline Phosphatase 98 U/L (46-116); Anion Gap 6.8 mmol/L (3-11); BUN 6 mg/dL (7-18); Bilirubin, Direct 0.2 mg/dL (0.0-0.2); Bilirubin, Total 0.7 mg/dL (0.2-1.0); CO2 25.2 mmol/L (21.0-32.0); CREATININE 0.9 mg/dL (0.55-1.02); Calcium 8.3 mg/dL (8.5-10.1); Chloride 104 mmol/L (98-107); Estimated GFR 74.57 (mL/min/1.73m2); Glucose 107 mg/dL (74-106); Magnesium 2.1 mg/dL (1.8-2.4); PHOSPHORUS 3.4 mg/dL (2.6-4.7); Sodium 136 mmol/L (136-145); Total Protein 6.4 g/dL (6.4-8.2)
[2025-03-29] MEDS: Folic Acid 1 MG TAB PO (08:07)
[2025-03-29] MEDS: Furosemide 20 MG TAB PO (08:07)
[2025-03-29] MEDS: Multivitamin TAB 1 TAB PO (08:08)
[2025-03-29] MEDS: Normal Saline Flush 10 ML SYR IVP (08:08)
[2025-03-29] MEDS: Lisinopril 10 MG TAB PO (08:08)
[2025-03-29] MEDS: Thiamine 100 MG TAB PO (08:08)
[2025-03-29 08:29] VITALS: O2SAT 93
[2025-03-29] MEDS: Budesonide/Formoterol 160/4.5 6 GM 60 PUFF INH IH (08:29)
--- NOTE | 2025-03-29 10:04 | W.PM.DS.N ---
Date of service: 03/29/25 Time of Service: 10:04 DS: Diagnosis Discharge Diagnosis (1) Alcohol withdrawal: Status: Acute (2) Hypomagnesemia: Status: Acute (3) Acute hyponatremia: Status: Acute (4) Alcoholic hepatitis: (5) Tobacco abuse: Status: Chronic (6) Anxiety: (7) COPD (chronic obstructive pulmonary disease): (8) Hypothyroidism: Status: Chronic (9) Hypertension: Status: Chronic Discharge Plan Disposition Patient Disposition: Home Condition: Improving Discharge Details Reason For Visit: Acute alcohol withdrawal, Hypomagnesemia... Admit Date/Time: 03/28/25 01:36 Admit Provider: Zach Chavez Attending Provider: Zach Chavez Primary Care Provider: Femi Cruz Hospital Course Hospital Course: This is a 59-year-old female patient who has a history of nicotine dependence, anxiety,hypertension, hypothyroidism, reactive airway disease, alcoholism having been sober for a long period of time but began to drink beer daily about 9 months ago. She has a family history of alcoholism as well. She presented with c/o not feeling well with dizziness,tremulousness, nausea and vomiting X1 without hematemesis with concerns regarding alcohol withdrawal to the ED physician with CIWA score calculates out to around 17 .Blood work was unremarkable ecept for Na at 127, ETOH at 11.9, Mg at 1.4. The patient was counseled on the possibility of alcohol withdrawal seizures for several days after stopping and the need for alcohol withdrawal protocol using phenobarbital in the hospital and was admitted to the medical surgical floor by the hospitalist. Inthe ED the patient was treated with IV Ativan, Librium, IVF. The patient received phenobarbital inpatient. This AM the patient stated that she felt better and wanted to go home; refused recovery coached stating machelle she is all set to go to AA with a friend this week. Refused Naltrexone and is not considering GLP-1 inhibitor at this time but stated that she will ask her PCP if needed. Agrees to clonidine PRN for anxiety as benzodiazepines are not recommended with alcohol dependence.Librium not to be continued at discharge. At discharge, the patient is hemodynamically stable with a CIWA of 0 and will have to f/u with her PCP within 7 days of discharge. Discussed with Dr. Alfaro Home Meds and New Rx's Prescriptions: New clonidine HCl 0.1 mg tablet 0.1 mg PO TID PRNQty: 20 0RF Continued budesonide-formoterol [Symbicort] 160-4.5 mcg/actuation HFA aerosol inhaler 2 puff inhalation BID (DME) Aerochamber MV Spacer See Rx Instructions .Route Qty: 1 0RF Rx Instructions: As directed albuterol sulfate [Ventolin HFA] 90 mcg/actuation HFA aerosol inhaler 2 puff inhalation QID PRN fluticasone propionate [Flonase Allergy Relief] 50 mcg/actuation spray,suspension 2 spray intranasal DAILY Qty: 16 12RF Rx Instructions: administer into each nostril furosemide 20 mg tablet 20 mg PO DAILY Patient Comments: TAKE ONE TABLET BY MOUTH EVERY DAY lisinopril 10 mg tablet 10 mg PO DAILY Qty: 30 0RF Held alprazolam 0.5 mg tablet 0.5 mg PO DAILY PRN Hold Instructions: Resume on 04/06/25. Not recommended in ETOH abuse or Hx of ETOH abuse - Discuss with PCP Patient Comments: TAKE ONE TABLET BY MOUTH EVERY DAY NEEDED Discontinued chlordiazepoxide HCl 25 mg capsule 25 mg PO PRN Patient Comments: took today at 0530, 1030, 1530 Discharge Instructions Stand Alone Forms: Nursing Discharge Form Referrals: Femi Cruz [Primary Care Provider] - (Follow-up with PCP within 7 days of discharge) Activity:: Activity as Tolerated Equipment/Supplies:: No Equipment Needed Diet:: heart healthy Discharge Orders Discharge Orders: Discharge Order (Routine); Ordered 03/29/25 Ordered By: Cortney Sanchez DS: Summary Time Spent with Patient providing and/or coordinating discharge services: Greater than 30 minutes Status at Discharge Functional status at discharge: independent ambulation Overall status at discharge: patient is back to baseline Mental Status: mental status grossly normal Speech and Movement: speech and movement normal Mood: congruent mood Affect: normal affect Quality:SDOH Health Related Social Needs: Health related social needs problems finding work (Z56.9) Health related social needs details Patient states requiring a doctor's note for work. Health related social needs details: Patient states requiring a doctor's note for work. Exam Narrative Exam Narrative: Constitutional Patient without acute distress and has obese body habitus Neuro:alert and oriented to self, person, place time and situation. No neurological focal deficit Resp: Normal respiratory pattern, speaks in full sentences, unlabored breathing, clear lung bilaterally Cardio: regular rhythm, S1, S2, no murmur, capillary refill<3 sec., bilateral radial and dorsalis pedis pulses are positive, palpable GI: Abdomen is not distended, soft and non tender, bowel sounds are present Back/spine/Pelvis: No back tenderness, normal alignment Extremities: strength 5/5 to bilateral lower and upper extremities Psych: RASS 0, congruent mood and normal affect. Psych Mental Status: mental status grossly normal Speech and Movement: speech and movement normal Mood: congruent mood Affect: normal affect DS: Data Vitals/I&O Vitals and I&O: Vital Signs Temperature 35.5 C L 03/29/25 06:41 Temperature Source Tympanic 03/29/25 06:41 Pulse 73 03/29/25 06:41 Pulse 82 03/28/25 09:00 Respiratory Rate 14 03/29/25 06:41 Respiratory Effort Normal 03/28/25 02:45 Respiratory Depth Normal 03/28/25 02:45 Respiratory Pattern Normal 03/28/25 02:45 Blood Pressure 122/62 03/29/25 06:41 Blood Pressure Mean 82 03/29/25 06:41 Pulse Oximetry 93 03/29/25 08:29 Oxygen Delivery Method Room Air 03/29/25 08:29 Oxygen Flow Rate 0 03/29/25 08:29 Pain Level 0 03/29/25 06:41 Comment feeling wheezy, asking for ventolin 03/28/25 12:54 Intake & Output 03/28/25 03/28/25 03/29/25 11:59 23:59 11:59 Intake Total 2936.9231 / 3725.5000 788.5769 / 3725.5000 1000 / 1000 Output Total 1800 / 2575 775 / 2575 600 / 600 Balance 1136.9231 / 1150.5000 13.5769 / 1150.5000 400 / 400 Weight 75.8 kg Intake: IV 2686.9231 / 3475.5000 788.5769 / 3475.5000 1000 / 1000 Oral 250 / 250 Output: Urine 1800 / 2575 775 / 2575 600 / 600 Other: Urine Color Yellow Light [place] Yellow Urine Appearance Clear Clear Clear Cloudy Urine Odor Normal Strong Normal Data Completed and Pending Labs on day of discharge: Labs from last 24 hours 03/29/25 06:20 WBC 6.53 RBC 4.23 Hgb 13.9 D Hct 40.3 MCV 95 MCH 32.9 MCHC 34.5 RDW 13.1 Plt Count 134 MPV 11.0 Immature Gran % 0.3 Neutrophils % 66.0 Lymphocytes % 21.7 Monocytes % 7.8 Eosinophils % 3.4 Basophils % 0.8 Nucleated RBC % 0.0 Absolute Neutrophils 4.31 Absolute Lymphocytes 1.42 Absolute Monocytes 0.51 Absolute Eosinophils 0.22 Absolute Basophils 0.05 Sodium 136 Potassium 4.0 Chloride 104 Carbon Dioxide 25.2 Anion Gap 6.8 BUN 6 L Creatinine 0.9 Est GFR (CKD-EPI 2020) 74.57 Glucose 107 H Calcium 8.3 L Phosphorus 3.4 Magnesium 2.1 Total Bilirubin 0.7 Conjugated Bilirubin 0.2 AST 64 H ALT 85 H Alkaline Phosphatase 98 Total Protein 6.4 Albumin 2.8 L PFSH All Active Problems (Updated 03/29/25 @ 11:39 by Cortney Sanchez APRN) Hypomagnesemia (Acute) Alcohol withdrawal (Acute) Acute hyponatremia (Acute) Tobacco abuse (Chronic) Alcoholism in remission (Chronic) Leukocytosis (leucocytosis) (Acute) Hyponatremia (Acute) Sore mouth (Acute) Oral lesion (Acute) Hypertension (Chronic) Hypothyroidism (Chronic) Breast mass, right (Chronic) Mass of uterus (Chronic) Post-menopausal bleeding (Acute) Medical History Pneumonia Pain in left shoulder Fatigue Exposure to communicable disease Allergic rhinitis Acute upper respiratory infection Headache Asthma Lower abdominal pain Acute pharyngitis Tobacco dependence Candidiasis of skin Pain in right knee Disorder of skin Hypokalemia Alcohol abuse Polyneuropathy Abnormal weight loss Stomatitis Cough Abdominal pain Chronic sinusitis Steatosis of liver COPD (chronic obstructive pulmonary disease) Alcoholic hepatitis Acute sinusitis Uterine leiomyoma Bronchitis Intramural uterine fibroid Smoker Anxiety Insomnia Obesity Chronic rhinitis Surgical History Ligation of fallopian tube section X 2 Biopsy of breast Family History Mother Coronary heart disease Social History Smoking/Tobacco Use Status: Current every day Tobacco Type: cigarettes Years smoked: 34 Smoking risk assessment performed?: Yes Alcohol Intake: former Drug use: Never Substance use type: does not use Details: quit drinking in October Housing: house Do you feel safe at home: Yes Do you feel safe in your relationship?: Yes History History Para 2 Hx # Term Pregnancies Multiple births Hx # Pregnancies Ectopic pregnancies AB induced Hx Number of Living Children 2 AB spontaneous Time Spent with Patient Time Spent with Patient: 70-84 minutes4 Time was spent: preparing to see the patient(eg.review tests), obtaining and/or reviewing separately otained hiistory, ordering medications,tests, procedures, referring, communicating with other health health care / medical job titles, indepentently interpreting results, counseling the patient and care coordination
== END 2025-03-29 11:50 | disposition home or self-care (01) | DRG 897 ==
LOC: ER 03-28 01:41 → ICU 03-28 02:10 → MS 03-28 10:04
PROVIDERS: Admitting Provider Family Medicine; Emergency Provider Student in an Organized Health Care Education/Training Program; PCP Physician Assistant; Responsible Provider Nurse Practitioner Acute Care; Visit Provider Family Medicine
DX: F10.239 Alcohol dependence with withdrawal, unspecified (principal); E87.1 Hypo-osmolality and hyponatremia; E83.42 Hypomagnesemia; J44.9 Chronic obstructive pulmonary disease, unspecified; K70.10 Alcoholic hepatitis without ascites; F41.9 Anxiety disorder, unspecified; E03.9 Hypothyroidism, unspecified; I10 Essential (primary) hypertension; D72.829 Elevated white blood cell count, unspecified; E66.9 Obesity, unspecified; Z68.31 Body mass index [BMI] 31.0-31.9, adult; Z79.899 Other long term (current) drug therapy
CPT/HCPCS: 00123; 36415; 80048; 80053; 80076; 80307; 83690; 87637; 93005; 94640; 96361; 96365; 96367; 96375; 99291; J1650; 80320; 81003; 83735; 84100; 84439; 84443; 84484; 85025; 85610; 93010; 94664; 94760; 99223; 99239; J2060; J2405; J2560; J3475

== ENCOUNTER 2025-04-10 19:22 | Emergency (ER) | payer MEDICAID, SELFPAY ==
[2025-04-10] VITALS (40 sets, daily range): BP systolic 126–170; BP diastolic 56–129; PULSE 68–95; RESP 13–25; TEMP 36.8; O2SAT 90–100
--- NOTE | 2025-04-10 19:15 | RT.EKG_ITS ---
APPROVED REPORT Exam: Resting ECG Reason for Exam: chest pain Patient Location: E HR:85 bpm ECG Measurements Heart Rate 85 AXIS [place] 144 P 31 QRSd 91 QRS 35 QT 396 T 45 QTc 472 Conclusion Sinus rhythm 85 normal axis no stemi
[2025-04-10] MEDS: diazePAM 10 MG/2 ML SYR 5 MG IVP (20:11)
[2025-04-10] MEDS: diazePAM 5 MG TAB PO (20:13)
[2025-04-10 20:17] LABS: Abs Immature Grans 0.02 10^3/uL (0.0-0.06); Absolute Basophil Count 0.06 10^3/uL (0.0-0.2); Absolute Eosinophil Count 0.03 10^3/uL (0.0-0.7); Absolute Lymphocyte Count 0.64 10^3/uL (1.2-3.4); Absolute Monocyte Count 0.68 10^3/uL (0.1-0.8); Absolute Neutrophil Count 6.42 10^3/uL (1.2-6.7); Basophils % 0.8 %; Eosinophils % 0.4 %; HCT 45.2 % (36.0-46.0); HGB 16.4 g/dL (11.2-15.7); Immature Grans % 0.3 %; Lymphocytes % 8.2 %; MCH 33.1 pg (27.0-33.0); MCHC 36.3 % (32.0-36.0); MCV 91 fL (80-95); MPV 10.6 fL (8.0-11.0); Monocytes % 8.7 %; Neutrophils % 81.6 %; Platelet Count 170 10^3/uL (130-400); RBC 4.95 10^6/uL (3.93-5.22); RDW 12.9 % (11.7-14.6); RDW-SD 43.3 fL; WBC 7.85 10^3/uL (4.4-10.8)
[2025-04-10 20:41] LABS: ALT 169 U/L (14-59); AST 152 U/L (15-37); Albumin 3.5 g/dL (3.4-5.0); Alkaline Phosphatase 148 U/L (46-116); Anion Gap 9.3 mmol/L (3-11); BUN 5 mg/dL (7-18); Bilirubin, Total 0.6 mg/dL (0.2-1.0); CO2 28.7 mmol/L (21.0-32.0); CREATININE 0.9 mg/dL (0.55-1.02); Calcium 8.8 mg/dL (8.5-10.1); Chloride 88 mmol/L (98-107); Estimated GFR 74.57 (mL/min/1.73m2); Glucose 116 mg/dL (74-106); Potassium 3.6 mmol/L (3.5-5.1); Sodium 126 mmol/L (136-145); Total Protein 8.1 g/dL (6.4-8.2); Troponin I 6 ng/L (<or=51)
[2025-04-10] MEDS: Normal Saline 1,000 ML 1000 ML IV (21:15)
--- NOTE | 2025-04-10 21:28 | ED.GENADUL_ITS ---
Discharge Plan Disposition Patient Disposition: Home Discharge Details Clinical Impression: Chest pain, Alcohol withdrawal, Anxiety, Chronic alcohol abuse, Acute hyponatremia Primary Care Provider: Femi Cruz ED Provider: Shikha Richmond Home Meds and New Rx's Prescriptions: No Action (DME) Aerochamber MV Spacer See Rx Instructions .Route Qty: 1 0RF Rx Instructions: As directed albuterol sulfate [Ventolin HFA] 90 mcg/actuation HFA aerosol inhaler 2 puff inhalation QID PRN alprazolam 0.5 mg tablet 0.5 mg PO DAILY PRN Patient Comments: TAKE ONE TABLET BY MOUTH EVERY DAY NEEDED furosemide 20 mg tablet 20 mg PO DAILY Patient Comments: TAKE ONE TABLET BY MOUTH EVERY DAY chlordiazepoxide 25 mg tablet PO umeclidinium-vilanterol [Anoro Ellipta] 62.5-25 mcg/actuation blister with device 1 inh inhalation DAILY lisinopril 10 mg tablet 10 mg PO DAILY Qty: 30 0RF Discharge Instructions Additional Instructions: * You have no signs of a heart issue causing your chest pain. Chest pain is likely from anxiety as you continue to taper off your alcohol use. * Continue to use the Librium as prescribed. You can always take an extra dose in between your scheduled doses on the taper. * You were given Valium and Librium in the emergency department. but do not have any symptoms of severe withdrawal requiring admission * Your sodium level was noted to be low but improved after IV fluids. Make sure you are drinking fluids with electrolytes in them like Gatorade or Pedialyte. * If you have any worsening of your symptoms or other concerns, please return to the emergency department or contact your primary care provider that it is monitoring your Librium taper. HPI General Date/Time Provider Initiated Documentation: 04/10/25 19:45 . Limitations to Documentation: no limitations . Information obtained by: patient . HPI Narrative: 59-year-old female with past medical history of hypertension, hypothyroidism, chronic hyponatremia and alcohol abuse presents for evaluation of chest pain and anxiety. She reports that she is been attempting sobriety. She reports that her last alcohol drink was last night. She did have a recent hospitalization and reports that after that hospitalization she did resume drinking alcohol. S he states that her physician gave her a Librium and she has been taking that. She has had 4 doses of Librium 25 mg today. She states that she has no real chest pain but feels like it is her anxiety. She has not been able to take her anxiety medication because she was told not to take it in conjunction with the Librium. She denies any fever or chills. Related Data Home Medications ?Medication ?Instructions ?Recorded ?Confirmed inhalational spacing device #1 ea 09/20/22 03/28/25 (Aerochamber MV spacer) albuterol sulfate 90 mcg/actuation 2 puff inhalation QID PRN 09/25/23 04/10/25 aerosol inhaler (Ventolin HFA) lisinopril 10 mg tablet 10 mg PO DAILY #30 tabs 03/03/24 04/10/25 alprazolam 0.5 mg tablet 0.5 mg PO DAILY PRN 03/28/25 04/10/25 furosemide 20 mg tablet 20 mg PO DAILY 03/28/25 04/10/25 chlordiazepoxide 25 mg tablet mg PO 04/10/25 umeclidinium 62.5 mcg-vilanterol 1 inh inhalation DAILY 04/10/25 04/10/25 25 mcg/actuation powdr for inhalation (Anoro Ellipta) Previous Rx's ?Medication ?Instructions ?Recorded inhalational spacing device #1 ea 09/20/22 (Aerochamber MV spacer) lisinopril 10 mg tablet 10 mg PO DAILY #30 tabs 03/03/24 Allergies Allergy/AdvReac Type Severity Reaction Status Date / Time trazodone Allergy Severe Other (See Unverified 04/10/25 19:34 Comment) erythromycin base AdvReac Severe stomache Unverified 04/10/25 19:34 (Erythromycin Base) pain/nausea diphenhydramine HCl (From AdvReac Intermediate Jittery Unverified 04/10/25 19:34 Tylenol PM) General Stated Complaint: Chest Pain KAMIAL: 3 Exam Narrative Exam Narrative: Review of Systems: All systems reviewed & are unremarkable except as noted in HPI and below Well-developed, no acute distress NCAT PERRL, normal conjunctiva RRR, mild hypertension Unlabored respiratory effort, CTAB, no increased WOB Nondistended abdomen , soft non tender no focal neurologic deficits no diaphoresis, significant tremor or hallucinations +anxious Course Vital Signs Vital signs: Vital Signs Temperature 36.8 C 04/10/25 19:25 Pulse 90 04/10/25 19:25 Respiratory Rate 18 04/10/25 19:25 Blood Pressure 170/83 H 04/10/25 19:25 Pulse Oximetry 100 04/10/25 19:25 Temperature 36.8 C 04/10/25 19:25 Temperature Source Tympanic 04/10/25 19:25 Pulse 81 04/10/25 20:50 Pulse 81 04/10/25 20:50 Respiratory Rate 23 04/10/25 20:50 Respiratory Effort Normal 04/10/25 19:30 Respiratory Pattern Normal 04/10/25 20:15 Blood Pressure 132/69 04/10/25 20:46 Blood Pressure Mean 90 04/10/25 20:46 Pulse Oximetry 91 L 04/10/25 20:50 Pain Level 3 04/10/25 19:25 Lab/Test Results Lab/Test Results: Laboratory Tests Range/Units 04/10/25 19:55 WBC (4.4-10.8) 10^3/uL 7.85 RBC (3.93-5.22) 10^6/uL 4.95 Hgb (11.2-15.7) g/dL 16.4 H Hct (36.0-46.0) % 45.2 MCV (80-95) fL 91 MCH (27.0-33.0) pg 33.1 H MCHC (32.0-36.0) % 36.3 H RDW (11.7-14.6) % 12.9 Plt Count (130-400) 10^3/uL 170 MPV (8.0-11.0) fL 10.6 Immature Gran % % 0.3 Neutrophils % % 81.6 Lymphocytes % % 8.2 Monocytes % % 8.7 Eosinophils % % 0.4 Basophils % % 0.8 Nucleated RBC % (0.0-0.3) % 0.0 Absolute Neutrophils (1.2-6.7) 10^3/uL 6.42 Absolute Lymphocytes (1.2-3.4) 10^3/uL 0.64 L Absolute Monocytes (0.1-0.8) 10^3/uL 0.68 Absolute Eosinophils (0.0-0.7) 10^3/uL 0.03 Absolute Basophils (0.0-0.2) 10^3/uL 0.06 Sodium (136-145) mmol/L 126 L Potassium (3.5-5.1) mmol/L 3.6 Chloride (98-107) mmol/L 88 L Carbon Dioxide (21.0-32.0) mmol/L 28.7 Anion Gap (3-11) mmol/L 9.3 BUN (7-18) mg/dL 5 L Creatinine (0.55-1.02) mg/dL 0.9 Est GFR (CKD-EPI 2020) (mL/min/1.73m2) 74.57 Glucose (74-106) mg/dL 116 H Calcium (8.5-10.1) mg/dL 8.8 Total Bilirubin (0.2-1.0) mg/dL 0.6 AST (15-37) U/L 152 H ALT (14-59) U/L 169 H Alkaline Phosphatase (46-116) U/L 148 H Troponin I (<or=51) ng/L 6 Total Protein (6.4-8.2) g/dL 8.1 Albumin (3.4-5.0) g/dL 3.5 Medical Decision Making Emergent evaluation of chest pain that patient reports that it is less likely chest pain but more likely to be anxiety. She does have risk factors for ACS including chronic alcohol abuse age, tobacco use and hypertension. EKG independently interpreted: Sinus 85 normal axis no acute ischemic changes. I have a low suspicion that the patient's symptoms are secondary to ACS. She is not exhibiting any signs of significant alcohol withdrawal syndrome. But will give dose of Valium and oral Valium, monitor closely. Lab work reviewed no leukocytosis or significant anemia. Her sodium level is low at 126 but she has had previous we. Will give some IV fluids and recheck. Creatinine normal, LFTs elevated consistent with chronic alcohol abuse. Troponin is not elevated. Check of sodium is improved after IV fluid administration. I do not feel that the patient requires admission for further correction of this chronic issue. At this time she does not display any signs concerning for severe alcohol withdrawal and her CIWA is negligible. She has been given Librium and Valium and has a Librium taper prescribed by her primary care provider to take at home. At this time I do not feel that the patient requires hospitalization as she is not in severe alcohol withdrawal and has Librium to take at home. Strict return precautions advised and do recommend close follow-up with her PCP. As she continues through the sobriety process. Quality:SDOH Health Related Social Needs: Health related social needs problems finding work (Z56 .9) Health related social needs details Patient states req uiring a doctor's note for work. PFSH All Active Problems (Updated 04/10/25 @ 23:31 by Shikha Richmond MD) Acute hyponatremia (Acute) Chronic alcohol abuse (Acute) Anxiety (Chronic) Chest pain (Acute) Alcohol withdrawal (Acute) Tobacco abuse (Chronic) Alcoholism in remission (Chronic) Leukocytosis (leucocytosis) (Acute) Hyponatremia (Acute) Sore mouth (Acute) Oral lesion (Acute) Hypertension (Chronic) Hypothyroidism (Chronic) Breast mass, right (Chronic) Mass of uterus (Chronic) Post-menopausal bleeding (Acute) Medical History Pneumonia Pain in left shoulder Fatigue Exposure to communicable disease Allergic rhinitis Acute upper respiratory infection Headache Asthma Lower abdominal pain Acute pharyngitis Tobacco dependence Candidiasis of skin Pain in right knee Disorder of skin Hypokalemia Alcohol abuse Polyneuropathy Abnormal weight loss Stomatitis Cough Abdominal pain Chronic sinusitis Steatosis of liver COPD (chronic obstructive pulmonary disease) Alcoholic hepatitis Acute sinusitis Uterine leiomyoma Bronchitis Intramural uterine fibroid Smoker Anxiety Insomnia Obesity Chronic rhinitis Surgical History Ligation of fallopian tube section X 2 Biopsy of breast Family History Mother Coronary heart disease Social History Smoking/Tobacco Use Status: Current every day Tobacco Type: cigarettes Years smoked: 34 Smoking risk assessment performed?: Yes Alcohol Intake: former Drug use: Never Substance use type: does not use Details: PT states that her last drink was 04/09/25 at 2200 Housing: house Do you feel safe at home: Yes Do you feel safe in your relationship?: Yes History History Para 2 Hx # Term Pregnancies Multiple births Hx # Pregnancies Ectopic pregnancies AB induced Hx Number of Living Children 2 AB spontaneous PAWSS Have you Been Recently Intoxicated or Drunk Within the Last 30 days?: Yes Have you Ever Experienced Previous Episodes of Alcohol Withdrawal?: Yes Have you ever Experienced Withdrawal Seizures?: No Have you ever Experienced Delirium Tremens(DT)s?: No Have you ever undergone Alcohol Rehabilitation Treatment (i.e, inpt ot outpatient treatment programs)?: No Have you ever Experienced Blackouts?: No Have you ever Combined Alcohol with other Downers within the last 90 days?: No Have you ever Combined Alcohol with any other Substance of Abuse during the last 90 days?: No Positive Blood Alcohol level on Presentation? [PCS.BAL]: Unable to Obtain Evidence of Increased Autonomic Activity (i.e. HR>120, tremor, sweating, agitation, nausea)?: Yes Result: 3
[2025-04-10 22:56] LABS: Sodium 130 mmol/L (136-145)
[2025-04-10] MEDS: chlordiazePOXIDE 25 MG CAP 50 MG PO (23:12)
== END 2025-04-10 23:39 | disposition home or self-care (01) ==
PROVIDERS: Emergency Provider Emergency Medicine; PCP Physician Assistant
DX: R07.9 Chest pain, unspecified (principal); F10.130 Alcohol abuse with withdrawal, uncomplicated; F41.9 Anxiety disorder, unspecified; E87.1 Hypo-osmolality and hyponatremia; E03.9 Hypothyroidism, unspecified; F17.210 Nicotine dependence, cigarettes, uncomplicated
CPT/HCPCS: 80053; 93005; 96361; 96374; 99284; 84295; 84484; 85025; 93010; J3360

== ENCOUNTER 2025-05-19 14:03 | Outpatient (REF) | payer MEDICAID, SELFPAY ==
[2025-05-19 17:24] LABS: ALT 41 U/L (14-59); AST 33 U/L (15-37); Albumin 3.1 g/dL (3.4-5.0); Alkaline Phosphatase 149 U/L (46-116); Anion Gap 8.7 mmol/L (3-11); BUN 3 mg/dL (7-18); Bilirubin, Total 0.6 mg/dL (0.2-1.0); CO2 30.3 mmol/L (21.0-32.0); Calcium 9.1 mg/dL (8.5-10.1); Calculated LDL 140 mg/dL (<100); Chloride 95 mmol/L (98-107); Cholesterol 209 mg/dL (<200); Estimated GFR 85.89 (mL/min/1.73m2); Glucose 126 mg/dL (74-106); HDL Cholesterol 48 mg/dL (>or=50); Potassium 4.0 mmol/L (3.5-5.1); Sodium 134 mmol/L (136-145); Total Protein 7.3 g/dL (6.4-8.2); Triglyceride 106 mg/dL (<150)
== END 2025-05-19 14:04 | disposition home or self-care (01) ==
LOC: NCHCN 14:03
PROVIDERS: PCP Physician Assistant; Visit Provider Physician Assistant
DX: E78.5 Hyperlipidemia, unspecified (principal)
CPT/HCPCS: 80053; 80061

== ENCOUNTER 2025-07-14 15:09 | Outpatient (REF) | payer MEDICAID, SELFPAY ==
[2025-07-14 16:01] LABS: ESR 47 mm/hr (0-30)
[2025-07-14 16:04] LABS: HCT 38.5 % (36.0-46.0); HGB 13.0 g/dL (11.2-15.7); MCH 30.7 pg (27.0-33.0); MCHC 33.8 % (32.0-36.0); MCV 91 fL (80-95); MPV 11.3 fL (8.0-11.0); Platelet Count 253 10^3/uL (130-400); RBC 4.23 10^6/uL (3.93-5.22); RDW 13.1 % (11.7-14.6); RDW-SD 42.8 fL; WBC 8.59 10^3/uL (4.4-10.8)
[2025-07-14 16:15] LABS: C-Reactive Protein 2.78 mg/dL (<or=0.5)
[2025-07-15 10:50] LABS: Lyme Ab w Rflx to Lyme Confirm Positive (Negative)
[2025-07-15 12:38] LABS: Lyme IgG Ab Positive (Negative)
== END 2025-07-14 15:10 | disposition home or self-care (01) ==
LOC: NCHCN 15:09
PROVIDERS: PCP Physician Assistant; Visit Provider Physician Assistant
DX: M25.50 Pain in unspecified joint (principal)
CPT/HCPCS: 85027; 85652; 86200; 86617; 86038; 86140; 86225; 86431; 86618

== ENCOUNTER 2025-07-26 09:35 | Outpatient (CLI) | payer MEDICAID, SELFPAY ==
[2025-07-26 09:49] LABS: ESR 32 mm/hr (0-30); HCT 42.0 % (36.0-46.0); HGB 14.0 g/dL (11.2-15.7); MCH 30.4 pg (27.0-33.0); MCHC 33.3 % (32.0-36.0); MCV 91 fL (80-95); MPV 10.3 fL (8.0-11.0); Platelet Count 249 10^3/uL (130-400); RBC 4.60 10^6/uL (3.93-5.22); RDW 13.2 % (11.7-14.6); RDW-SD 43.8 fL; WBC 8.38 10^3/uL (4.4-10.8)
[2025-07-26 10:43] LABS: ALT 23 U/L (14-59); AST 24 U/L (15-37); Albumin 3.9 g/dL (3.4-5.0); Alkaline Phosphatase 106 U/L (46-116); Anion Gap 8.1 mmol/L (3-11); BUN 6 mg/dL (7-18); Bilirubin, Total 0.5 mg/dL (0.2-1.0); C-Reactive Protein 1.36 mg/dL (<or=0.5); CO2 29.9 mmol/L (21.0-32.0); Calcium 10.1 mg/dL (8.5-10.1); Chloride 97 mmol/L (98-107); Estimated GFR 74.10 (mL/min/1.73m2); Glucose 111 mg/dL (74-106); Potassium 4.0 mmol/L (3.5-5.1); Sodium 135 mmol/L (136-145); Total Protein 8.9 g/dL (6.4-8.2)
== END 2025-07-26 09:36 | disposition home or self-care (01) ==
LOC: LBO 09:35
PROVIDERS: PCP Physician Assistant; Visit Provider Physician Assistant
DX: A69.23 Arthritis due to Lyme disease (principal)
CPT/HCPCS: 36415; 80053; 85027; 85652; 86140

== ENCOUNTER 2025-07-28 01:44 | Outpatient (CLI) | payer MEDICAID, SELFPAY ==
--- NOTE | 2025-07-28 | DI.MAMMO_ITS ---
Exam(s) MAMMO SCREENING EXAM: MAMMO SCREENING CLINICAL HISTORY: SCREENING MAMMO Z12.31 TECHNIQUE: Bilateral full field digital CC and MLO mammographic images were obtained with 3D tomosynthesis and utilizing computer aided detection (CAD). COMPARISON: Comparison is made with prior examinations. FINDINGS: Masses/Architectural Distortion: No suspicious masses or areas of architectural distortion are present. The dominant nodule in the upper outer quadrant of the right breast appears stable. Microcalcifications: No suspicious pleomorphic-type are seen. Skin Thickening/Nipple Retraction: None. IMPRESSION: 1. No significant interval change with no specific features of malignancy noted. 2. Unless there is more urgent need, screening mammography is recommended, as per [place] [employer] guidelines. BI-RADS Category 2 - Benign Findings Breast Density - Category C - The breast are heterogeneously dense, which may obscure small masses. Breast density Category C or D implies that the patient has dense breast tissue. Dense breast tissue can make it harder to find cancer on a mammogram. Dense breast tissue is also associated with an increased risk of breast cancer. This information about the result of the mammogram report was provided to the patient to raise their awareness. Use this report when you speak with the patient about their risks for breast cancer, which includes their family history. At that time, you may recommend additional screening tests (Ultrasound or MRI) as these tests may add significant information. A negative radiographic report should not delay biopsy if a dominant or clinically suspicious mass is present. Up to ten percent of cancers are not identified on mammography. A negative report may reinforce clinical impression. Adenosis and dense breasts may obscure an underlying neoplasm. False positive reports average 6 to 10%. Patient will receive a letter notifying them of these results.
== END 2025-07-28 02:04 ==
PROVIDERS: PCP Physician Assistant; Visit Provider Physician Assistant
DX: Z12.31 Encounter for screening mammogram for malignant neoplasm of breast (principal)
CPT/HCPCS: 77063; 77067

== ENCOUNTER 2025-08-05 04:24 | Outpatient (CLI) | payer MEDICAID, SELFPAY ==
--- NOTE | 2025-08-05 | DI.RAD_ITS ---
Exam(s) XR THORACIC SPINE COMPLETE EXAM: XR THORACIC SPINE COMPLETE CLINICAL HISTORY: UPPER BACK PAIN,M54.9. TECHNIQUE: 2D digital imaging was performed. Three views. COMPARISON: CR,XR XR CHEST 2V PA LATERAL from 03/02/2024 CR XR CERVICAL SPINE COMP 4-5V from 08/05/2025 FINDINGS: BONES: There is no fracture or destructive lesion. The vertebral bodies and posterior elements are unremarkable. ALIGNMENT: Within normal limits. DISKS: Interverebral disc spaces are maintained. There are minimal and anteriorly projecting endplate osteophytes in the mid thoracic region. SOFT TISSUE: Visualized lungs are clear. IMPRESSION: Minimal degenerative changes of the thoracic spine. DATA REPOSITORY: RADIATION DOSE DELIVERED:
--- NOTE | 2025-08-05 | DI.RAD_ITS ---
Exam(s) XR CERVICAL SPINE COMP 4-5V EXAM: XR CERVICAL SPINE COMP 4-5V CLINICAL HISTORY: NECK PAIN WITH RADICULAR SYMPTOMS,M54.2. TECHNIQUE: 2D digital imaging was performed. Five views were performed. COMPARISON: No exams were available for comparison FINDINGS: BONES: No fracture or destructive lesion. Vertebral bodies are unremarkable. There are mild to moderate facet degenerative changes throughout which are greatest at C2-3. DISKS: There is mild narrowing of the C4-5 disc space and moderate narrowing of the C5-6 and C6-7 disc spaces. There are small endplate osteophytes at these levels. Combination of degenerative changes causes [id number] left neural foraminal narrowing at C5-6 and C6-7. No significant right neural foraminal narrowing. ALIGNMENT: There is degenerative straightening of the normal cervical lordosis. The odontoid and atlantoaxial articulations are normal. SOFT TISSUE: Normal. The lung apices are clear. IMPRESSION: Degenerative disc changes at C5-6 C6-7. Mild bilateral neural foraminal narrowing at these levels. Facet degenerative changes. DATA REPOSITORY: RADIATION DOSE DELIVERED:
== END 2025-08-05 04:44 ==
PROVIDERS: PCP Physician Assistant; Visit Provider Physician Assistant
DX: M51.84 Other intervertebral disc disorders, thoracic region (principal); M48.02 Spinal stenosis, cervical region
CPT/HCPCS: 72050; 72072

== ENCOUNTER 2025-08-16 02:18 | Outpatient (CLI) | payer MEDICAID, SELFPAY ==
--- NOTE | 2025-08-16 | DI.MRI_ITS ---
Exam(s) MR CERVICAL SPINE WO EXAM: MR CERVICAL SPINE WO CLINICAL HISTORY: NECK PAIN WITH BILAT RADICULOPATHY,M54.2 TECHNIQUE: Multiplanar multisequence MRI of the cervical spine was performed without intravenous contrast. COMPARISON: CR XR CERVICAL SPINE COMP 4-5V from 08/05/2025 FINDINGS: BONES: Vertebral body heights are maintained. Alignment is normal. Bone marrow signal intensity is within normal limits. CERVICAL CORD: Craniovertebral junction is unremarkable. The cervical cord is normal size and signal intensity. SOFT TISSUES: Unremarkable. C2-3: No disc herniation or bulge is identified. No evidence of neural foraminal narrowing. No significant central canal stenosis. C3-4: Minimal disc bulging. No evidence of neural foraminal narrowing. No significant central canal stenosis. C4-5: Mild loss of disc height. Endplate osteophytes. Mild disc bulging. No focal disc herniation. Moderate right neural foraminal narrowing. No significant central canal stenosis. C5-6: Moderate loss of disc height. Endplate osteophytes. Mild disc bulging. No focal disc herniation. Moderate bilateral neural foraminal narrowing. No significant central canal stenosis. C6-7: Moderate loss of disc height. Circumferential endplate osteophytes and mild disc bulging. No focal disc herniation. Moderate left neural foraminal narrowing. No significant central canal stenosis. C7-T1: No disc herniation or bulge is identified. No evidence of neural foraminal narrowing. No significant central canal stenosis. IMPRESSION: Degenerative disc changes and facet degenerative changes combine to produce moderate right neural foraminal narrowing at C4-5 and C5-6 and moderate left neural foraminal narrowing at C5-6 and C6-7. No focal disc herniation or central canal stenosis. DATA REPOSITORY:
== END 2025-08-16 02:38 ==
LOC: DI 02:18
PROVIDERS: PCP Physician Assistant; Visit Provider Physician Assistant
DX: M48.02 Spinal stenosis, cervical region (principal); M99.61 Osseous and subluxation stenosis of intervertebral foramina of cervical region
CPT/HCPCS: 72141

== ENCOUNTER 2025-08-18 21:10 | Outpatient (REF) | payer MEDICAID, SELFPAY ==
[2025-08-18 21:31] LABS: ESR 26 mm/hr (0-30)
[2025-08-18 21:51] LABS: ALT 21 U/L (14-59); AST 22 U/L (15-37); Albumin 3.9 g/dL (3.4-5.0); Alkaline Phosphatase 113 U/L (46-116); Anion Gap 10.0 mmol/L (3-11); BUN 5 mg/dL (7-18); Bilirubin, Total 0.3 mg/dL (0.2-1.0); C-Reactive Protein 1.04 mg/dL (<or=0.5); CO2 29.0 mmol/L (21.0-32.0); Calcium 9.3 mg/dL (8.5-10.1); Chloride 97 mmol/L (98-107); Estimated GFR 85.35 (mL/min/1.73m2); Glucose 87 mg/dL (74-106); Potassium 4.0 mmol/L (3.5-5.1); Sodium 136 mmol/L (136-145); Total Protein 8.1 g/dL (6.4-8.2)
== END 2025-08-18 21:11 | disposition home or self-care (01) ==
LOC: NCHCN 21:10
PROVIDERS: PCP Physician Assistant; Visit Provider Physician Assistant
DX: A69.20 Lyme disease, unspecified (principal)
CPT/HCPCS: 80053; 85652; 86140

== ENCOUNTER 2025-09-14 11:13 | Outpatient (REF) | payer MEDICAID, SELFPAY ==
[2025-09-14 16:42] LABS: Magnesium 1.8 mg/dL (1.6-2.6); Vitamin B12 398 pg/mL (211-911)
== END 2025-09-14 11:14 | disposition home or self-care (01) ==
LOC: NCHCN 11:13
PROVIDERS: PCP Physician Assistant; Visit Provider Physician Assistant
DX: M79.10 Myalgia, unspecified site (principal); M79.2 Neuralgia and neuritis, unspecified
CPT/HCPCS: 82607; 83735

== ENCOUNTER 2025-09-15 10:24 | Outpatient (CLI) | payer MEDICAID, SELFPAY ==
--- NOTE | 2025-09-15 09:00 | DI.RAD_ITS ---
Exam(s) XR HAND RT COMPLETE EXAM: XR HAND RT COMPLETE CLINICAL HISTORY: hand pain. TECHNIQUE: 2D digital imaging was performed. Three views. COMPARISON: CR LEFT HAND COMPLETE from 11/18/2008 FINDINGS: BONES: No acute fracture is present. No bony destructive lesion is seen. JOINTS: No dislocation present. Joint spaces are maintained. There are no significant degenerative changes. SOFT TISSUE: Normal. IMPRESSION: Unremarkable radiographs of the right hand. DATA REPOSITORY: RADIATION DOSE DELIVERED:
== END 2025-09-15 10:25 | disposition home or self-care (01) ==
LOC: DIORS 10:24
PROVIDERS: PCP Physician Assistant; Visit Provider Physician Assistant
DX: M79.644 Pain in right finger(s) (principal)
CPT/HCPCS: 73130